=== PATIENT | female | born 1945 | race Caucasian/White ===

== ENCOUNTER → 2016-07-28 | Outpatient (CLI) | payer BC ==
[~2016-07-28] MED LIST: ALBU1AER9 INH; ATOR-22 PO; CALCTAB5 PO; CHOL4POW6 PO; FLUT230A INH; HYCUDL5 PO; LACT12LO3 EX; MOME50SP5; MULT-506 PO; PRT/20 PO; TRAM-10 PO; ZOLP12.5 PO
[2016-07-28 10:04] LABS: BASO % 0.6 %; BASO ABS # 0.04 K/uL (0-0.2); COMPLETE YES; EOS % 2.6 %; HEMATOCRIT 41.5 % (37-47); IG% 0.3 %; LYMPH % 40.6 %; LYMPH ABS # 2.79 K/uL (1.2-3.4); MEAN CELL VOLUME 87.9 fL (80-100); MEAN CORPUSCULAR HEMOGLOBIN 28.6 pg (25-34); MEAN CORPUSCULAR HGB CONC 32.5 g/dl (32-36); NEUT % 45.9 %; PLATELET COUNT 228 K/uL (130-400); RED BLOOD COUNT 4.72 M/uL (4.2-5.4); WHITE BLOOD COUNT 6.88 K/uL (4.8-10.8)
[2016-07-28 10:36] LABS: ALT/SGPT 47 U/L (12-78); AST/SGOT 25 U/L (15-37); BLOOD UREA NITROGEN 12 mg/dl (7-18); BUN/CREATININE RATIO 17.4 (10-20); CALCIUM 8.7 mg/dl (8.5-10.1); CARBON DIOXIDE 31 mmol/L (21-32); CHLORIDE 109 mmol/L (98-107); CREATININE 0.67 mg/dl (0.60-1.20); GLUCOSE 90 mg/dl (70-99); SODIUM 146 mmol/L (136-145)
[2016-07-28 10:47] LABS: CHOLESTEROL 156 mg/dl (0-200); CHOLESTEROL/HDL RATIO 2.1; HDL CHOLESTEROL 74 mg/dl; LDL CHOLESTEROL CALCULATED 67 mg/dl; TRIGLYCERIDES 76 mg/dl (0-150); VERY LOW DENSITY LIPOPROT CALC 15 mg/dl
[2016-07-28 10:52] LABS: ESTIMATED AVERAGE GLUCOSE 117 mg/dl; HA1C FLAG Normal (Normal)
[2016-07-28 12:39] LABS: URINE APPEARANCE CLEAR (CLEAR); URINE BILIRUBIN NEG (NEG); URINE COLOR YELLOW; URINE EPITHELIAL CELL AUTO >30 /lpf (0-5); URINE NITRITE NEG (NEG); UROBILINOGEN NEG (NEG)
[2016-07-28 12:46] LABS: MANUAL MICROSCOPIC REQUIRED? NO; REVIEW REQ? NO
== END | disposition home or self-care (01) ==
LOC: C.LAB 09:19
PROVIDERS: ATTEND Internal Medicine
DX: E78.00 Pure hypercholesterolemia, unspecified (principal)

== ENCOUNTER → 2017-01-19 | Outpatient (CLI) | payer BC ==
--- NOTE | 2017-01-19 15:09 | MAMMOGRAPHY REPORT ---
BILATERAL DIGITAL SCREENING MAMMOGRAM WITH CAD: 01/19/2017 CLINICAL HISTORY: Routine screening. Patient has no complaints. TECHNIQUE: Bilateral CC and MLO views were obtained. Additional images were performed with nipples i n profile. Current study was also evaluated with a Computer Aided Detection (CAD) system. COMPARISON: Comparison is made to exams dated: 01/14/2016 mammogram, 01/10/2015 mammogram, 4 mammogram, 01/05/2013 mammogram, 01/05/2012 mammogram, and 12/30/2010 mammogram - [facility]. BREAST COMPOSITION: There are scattered areas of fibroglandular density in both breasts. FINDINGS: The parenchymal pattern is unchanged. No developing mass, architectural distortion or clus ter of suspicious microcalcifications is seen in either breast. IMPRESSION: ACR BI-RADS CATEGORY 2: BENIGN There is no mammographic evidence of malignancy. A 1 year screening mammogram is recommended. The pa tient will receive written notification of the results. Approximately 10% of breast cancers are not detected with mammography. A negative mammographic report should not delay biopsy if a clinically suggestive mass is present. Francie Silva M.D. ay/:01/19/2017 11:47:48 Tie In Hand: Sepideh WELLS(Mehreen)(Kristian)(BD), letter sent: Normal 1/2 BI-RADS Code: ACR BI-RADS Category 2: Benign
== END | disposition home or self-care (01) ==
LOC: C.MAMM 10:51
PROVIDERS: ATTEND Internal Medicine
DX: Z12.31 Encounter for screening mammogram for malignant neoplasm of breast (principal)

== ENCOUNTER → 2017-01-28 | Outpatient (CLI) | payer BC ==
[2017-01-28 10:07] LABS: BASO ABS # 0.06 K/uL (0-0.2); COMPLETE YES; EOS % 2.6 %; HEMATOCRIT 42.2 % (37-47); IG% 0.3 %; LYMPH % 37.5 %; LYMPH ABS # 2.33 K/uL (1.2-3.4); MEAN CELL VOLUME 87.4 fL (80-100); MEAN CORPUSCULAR HEMOGLOBIN 28.4 pg (25-34); MEAN CORPUSCULAR HGB CONC 32.5 g/dl (32-36); MEAN PLATELET VOLUME 11.4 fL (7.4-10.4); MONO % 9.2 %; NEUT % 49.4 %; PLATELET COUNT 220 K/uL (130-400); RED BLOOD COUNT 4.83 M/uL (4.2-5.4); WHITE BLOOD COUNT 6.21 K/uL (4.8-10.8)
[2017-01-28 10:21] LABS: ESTIMATED AVERAGE GLUCOSE 114 mg/dl; HA1C FLAG Normal (Normal)
[2017-01-28 10:43] LABS: CHOLESTEROL/HDL RATIO 2.1
== END | disposition home or self-care (01) ==
LOC: C.LAB 09:24
PROVIDERS: ATTEND Internal Medicine
DX: G47.33 Obstructive sleep apnea (adult) (pediatric) (principal)

== ENCOUNTER → 2017-03-24 | Outpatient (CLI) | payer OTHER | END | disposition home or self-care (01) | LOC: C.LABSPEC 17:50 | PROVIDERS: ATTEND Obstetrics & Gynecology | DX: N89.8 Other specified noninflammatory disorders of vagina (principal) ==

== ENCOUNTER → 2017-07-12 | Day surgery (SDC) | payer BC, OTHER ==
[2017-06-30 10:04] VITALS: Ht 168.9 cm; Wt 70.5 kg
[~2017-07-12] VITALS: Ht 168.9 cm; Wt 70.5 kg
[~2017-07-12] MED LIST changes: +ALBU18002 INH; -ALBU1AER9 INH; +BUTA30CA12 PO; +CALC-393 PO; -CALCTAB5 PO; -CHOL4POW6 PO; +CHOLPOW PO; -LACT12LO3 EX; +LCHC12280; +LIDOCAINE HCL 2% 2 ML VIAL (20MG/ML) ONE; +MIDAZOLAM HCL 1 MG/ML 2ML VIAL ONE; -MOME50SP5; +MOME6000 NAE; +NYSS/; +ONDANSETRON INJ 2 MG/ML 2 ML VIAL ONE; +PANT1TAB3 PO; +PROPOFOL IV EMULSION 10 MG/ML 20 ML VIAL ONE; -PRT/20 PO; +SODIUM CHLORIDE 0.9% 500ML 500 ML IV ONE; -TRAM-10 PO
--- NOTE | 2017-07-12 14:03 | Endo History and Physical ---
History & Physical Date of Service: July 12, 2017. Chief Complaint: Screening, Hx of polyps Referring Physician: Dr. Bonner History of Present Illness 71 yo CF who presents for colonoscopy secondary to history of colon polyps. Past Medical History Diabetes, Reflux, High Cholesterol, Sleep Apnea, Hypertension Past Surgical History Hx Cardiac Surgery: No Hx Internal Defibrillator: No Hx Pacemaker: No Hx Abdominal Surgery: Yes (HYSTERECTOMY, LAURA) Hx of Implantable Prosthesis: No Hx Post-Op Nausea and Vomiting: No Hx Cancer Surgery: Yes (MOHS SURGERY, BIOSPIES FOR SKIN CA) Hx Thoracic Surgery: No Hx Orthopedic: Yes (R RCR) Hx Urinary Tract Surgery: No Family History Polyp Social History Smoking Status: Former Smoker Hx Substance Use: No Hx Alcohol Use: Yes (SOCIALLY) Allergies Coded Allergies: Meloxicam (Verified Allergy, Unknown, GI BLEED, 07/12/17) Current Medications Reported Home Medications Medications Dose Route/Sig Max Daily Dose Days Date Category Proair Respiclick (Albuterol Sulfate) 108 Mcg/Act Aer 2 Puffs INH Q4 PRN 06/30/17 Reported Nystatin Suspension (Nystatin) 1 Ml Susp DIRECTED PRN 06/30/17 Reported Mometasone Furoate (Mometasone Furoate (Nasal)) 50 Mcg/Act Spr 2 Sprays GAIL DAILY 06/30/17 Reported Cholestyramine (Cholestyramine (Bulk)) 1 Pow Pow 1 Pkt PO DAILY 06/30/17 Reported Calcium (Calcium Carbonate) 600 Mg Tab 1 Tab PO BID 06/30/17 Reported Fiorinal/Codeine #3 (Rlaqmrgako-Tuusxhh-Vzzgdrmc W/) 1 Cap Cap 1 Cap PO DAILY PRN 06/30/17 Reported Ammonium Lactate Cream 12% (Lactic Acid) 280 Gm Cr DIRECTED 06/30/17 Reported Advair Hfa 230/21 Mcg (Fluticasone-Salmeterol 230/21 Mcg) 1 Aer Aer 2 Puffs INH BID 06/30/17 Reported Protonix (Pantoprazole) 40 Mg Tab 1 Tab PO DAILY 30 06/30/17 Reported Hydromet 5-1.5 mg/5Ml (Hydrocodone Bit/Homatropine Methylb) 5 Ml/Cup Syrp PO Q6 PRN 05/16/13 Reported Multivitamin (Multivitamins) Tab 1 Tab PO DAILY 01/30/13 Reported Lipitor (Atorvastatin Calcium) 20 Mg Tab 20 Mg PO HS 01/30/13 Reported Ambien Cr (Zolpidem Tartrate) 12.5 Mg Tabcr 12.5 Mg PO HS 01/30/13 Reported Vital Signs Weight (Kilograms): 70.45 Height (Feet): 5 Height (Inches): 6.5 Physical Exam General Appearance: WD/WN, no apparent distress Respiratory/Chest: Auscultation: breath sounds normal Cardiovascular: Heart Auscultation: RRR Abdomen: Bowel Sounds: normal Inspection & Palpation: soft, non-distended, no tenderness, guarding & rebound Assessment and Plan Assessment: 71 yo CF who presents for colonoscopy secondary to history of colon polyps. Plan: Proceed with colonoscopy.
--- NOTE | 2017-07-12 15:22 | Discharge Instructions ---
Endoscopy Patient Instructions Date / Procedure(s) Performed July 12, 2017. Colonoscopy Allergy Information Coded Allergies: Meloxicam (Verified Allergy, Unknown, GI BLEED, 07/12/17) Discharge Date / Findings July 12, 2017. Colon polyps Internal hemorrhoids Medication Instructions OK to resume all medications today as prescribed Reported Home Medications Medications Dose Route/Sig Max Daily Dose Days Date Category Proair Respiclick (Albuterol Sulfate) 108 Mcg/Act Aer 2 Puffs INH Q4 PRN 06/30/17 Reported Nystatin Suspension (Nystatin) 1 Ml Susp DIRECTED PRN 06/30/17 Reported Mometasone Furoate (Mometasone Furoate (Nasal)) 50 Mcg/Act Spr 2 Sprays GAIL DAILY 06/30/17 Reported Cholestyramine (Cholestyramine (Bulk)) 1 Pow Pow 1 Pkt PO DAILY 06/30/17 Reported Calcium (Calcium Carbonate) 600 Mg Tab 1 Tab PO BID 06/30/17 Reported Fiorinal/Codeine #3 (Tsqezxkvkv-Drwknux-Vvfvlspv W/) 1 Cap Cap 1 Cap PO DAILY PRN 06/30/17 Reported Ammonium Lactate Cream 12% (Lactic Acid) 280 Gm Cr DIRECTED 06/30/17 Reported Advair Hfa 230/21 Mcg (Fluticasone-Salmeterol 230/21 Mcg) 1 Aer Aer 2 Puffs INH BID 06/30/17 Reported Protonix (Pantoprazole) 40 Mg Tab 1 Tab PO DAILY 30 06/30/17 Reported Hydromet 5-1.5 mg/5Ml (Hydrocodone Bit/Homatropine Methylb) 5 Ml/Cup Syrp PO Q6 PRN 05/16/13 Reported Multivitamin (Multivitamins) Tab 1 Tab PO DAILY 01/30/13 Reported Lipitor (Atorvastatin Calcium) 20 Mg Tab 20 Mg PO HS 01/30/13 Reported Ambien Cr (Zolpidem Tartrate) 12.5 Mg Tabcr 12.5 Mg PO HS 01/30/13 Reported Provider Instructions Activity Restrictions - No exercising or heavy lifting for 24 hours. - Do not drink alcohol the day of the procedure. - Do not drive a car or operate machinery until the day after the procedure. - Do not make any important decisions or sign important papers in 24 hours after the procedure. Following Day: - Return to full activity which may include returning to work/school. Diet Start your diet with liquids and light foods (jello, soup, juice, toast). Then eat your usual diet if not nauseated. Treatment For Common After Affects For mild abdominal pain, bloating, or excessive gas: - Rest - Eat lightly - Lie on right side Follow-Up Information Follow-up with Dr. Bonner as scheduled Anesthesia Information What You Should Know You have had a procedure that required some medicine to reduce anxiety and discomfort. This treatment is called moderate sedation. After receiving the treatment, you may be sleepy, but you will be able to breathe on your own. The effects of the treatment may last for several hours. Follow these instructions along with Activity/Diet recommendations noted above: * Do NOT do anything where dizziness or clumsiness would be dangerous. * Rest quietly at home today, then you can be up and about tomorrow. * Have a responsible person stay with you the rest of today. * You may have had an I.V. today. If so, you may take the dressing off later today. Recommendations Call your doctor if: * Trouble breathing * Continuous vomiting for more than 24 hours * Temperature above 101 degrees * Severe abdominal pain or bloating * Pain not relieved by pain medicine ordered * There is increased drainage or redness from any incision * A large amount of rectal bleeding greater than 2-3 tablespoons. (If you had a polyp/s removed or have hemorrhoids, a small amount of blood - from the rectum is to be expected.) * You have any unanswered questions or concerns. IN THE EVENT OF A SERIOUS EMERGENCY, GO TO THE NEAREST EMERGENCY ROOM Your discharge instructions were prepared by provider Kurt Alonso. Patient Instructions Signature Page Emily Kenny Patient (or Guardian) Signature/Date: I have read and understand the instructions given to me by my caregivers. Caregiver/RN/Doctor Signature/Date: The above-named patient and/or guardian has received patient instructions on this date. + Original Patient Signature Page (only) stays with chart. Please make copy for patient.
--- NOTE | 2017-07-12 15:25 | GI REPORT ---
Patient Name: Emily Kenny Procedure Date: 07/12/2017 2:03 PM Date of : 1945 Admit Type: Outpatient Age: 71 Gender: Female Attending MD: Kurt Alonso DO Procedure: Colonoscopy Providers: Kurt Alonso DO Referring MD: Jacob Bonner Indications: High risk colon cancer surveillance: Personal history of colonic polyps Medicines: Monitored Anesthesia Care Complications: No immediate complications. Estimated Blood Loss: Estimated blood loss: none. Procedure: Pre-Anesthesia Assessment: - Prior to the procedure, a History and Physical was performed, and patient medications and allergies were reviewed. The patient's tolerance of previous anesthesia was also reviewed. The risks and benefits of the procedure and the sedation options and risks were discussed with the patient. All questions were answered, and informed consent was obtained. Prior Anticoagulants: The patient has taken no previous anticoagulant or antiplatelet agents. ASA Grade Assessment: III - A patient with severe systemic disease. After reviewing the risks and benefits, the patient was deemed in satisfactory condition to undergo the procedure. After I obtained informed consent, the scope was passed under direct vision. Throughout the procedure, the patient's blood pressure, pulse, and oxygen saturations were monitored continuously. The On-site loaner was introduced through the anus and advanced to the cecum, identified by appendiceal orifice and ileocecal valve. The colonoscopy was technically difficult and complex due to restricted mobility of the colon and significant looping. Successful completion of the procedure was aided by changing the patient to a supine position, using manual pressure and withdrawing the scope and replacing with the pediatric colonoscope. The patient tolerated the procedure fairly well. The quality of the bowel preparation was good. The ileocecal valve, appendiceal orifice, and rectum were photographed. Findings: The perianal and digital rectal examinations were normal. Two sessile polyps were found in the descending colon and ascending colon. The polyps were 4 to 5 mm in size. These polyps were removed with a cold snare. Resection and retrieval were complete. Non-bleeding internal hemorrhoids were found during retroflexion. The hemorrhoids were small. Impression: - Two 4 to 5 mm polyps in the descending colon and in the ascending colon, removed with a cold snare. Resected and retrieved. - Non-bleeding internal hemorrhoids. Recommendation: - Resume previous diet. - Continue present medications. - Repeat colonoscopy for surveillance based on pathology results. - Return to primary care physician as previously scheduled. Kurt Alonso, DO 07/12/2017 3:25:15 PM This report has been signed electronically. Note Initiated On: 07/12/2017 2:03 PM Number of Addenda: 0 I attest to the content of the Intraoperative Record and orders documented therein, exceptions below {[id number]}
--- NOTE | 2017-07-12 15:41 | Anesthesiology Progress Note ---
Anesthesia Post Op Note Date & Time July 12, 2017 at 15:40 Vital Signs Pain Intensity: 0 Vital Signs Past 12 Hours Date Time Temp Pulse Resp B/P (MAP) Pulse Ox O2 Delivery O2 Flow Rate FiO2 07/12/17 15:24 37.1 81 16 124/74 (91) 97 Room Air 07/12/17 14:06 37.1 89 18 162/101 (121) 94 Room Air Notes Mental Status: alert / awake / arousable, participated in evaluation Pt Amnestic to Procedure: Yes Nausea / Vomiting: adequately controlled Pain: adequately controlled Airway Patency, RR, SpO2: stable & adequate BP & HR: stable & adequate Hydration State: stable & adequate Anesthetic Complications: no major complications apparent
[2017-07-12 15:55] VITALS: BP 105/94; PULSE 73; O2SAT 100
== END | disposition home or self-care (01) ==
LOC: C.GI 13:10
PROVIDERS: ATTEND Internal Medicine
DX: Z12.11 Encounter for screening for malignant neoplasm of colon (principal); D12.4 Benign neoplasm of descending colon; D12.2 Benign neoplasm of ascending colon; K64.8 Other hemorrhoids; Z86.010 Personal history of colon polyps; E11.9 Type 2 diabetes mellitus without complications; K21.9 Gastro-esophageal reflux disease without esophagitis; J45.909 Unspecified asthma, uncomplicated; E78.00 Pure hypercholesterolemia, unspecified; G47.33 Obstructive sleep apnea (adult) (pediatric); I10 Essential (primary) hypertension; Z90.710 Acquired absence of both cervix and uterus; Z87.891 Personal history of nicotine dependence; Z88.8 Allergy status to other drugs, medicaments and biological substances; Z79.899 Other long term (current) drug therapy; Z85.828 Personal history of other malignant neoplasm of skin

== ENCOUNTER → 2017-09-15 | Outpatient (CLI) | payer OTHER ==
[~2017-09-15] MED LIST changes: -LIDOCAINE HCL 2% 2 ML VIAL (20MG/ML) ONE; -MIDAZOLAM HCL 1 MG/ML 2ML VIAL ONE; -ONDANSETRON INJ 2 MG/ML 2 ML VIAL ONE; -PROPOFOL IV EMULSION 10 MG/ML 20 ML VIAL ONE; -SODIUM CHLORIDE 0.9% 500ML 500 ML IV ONE
== END | disposition home or self-care (01) ==
LOC: C.PAPS 15:04
PROVIDERS: ATTEND Obstetrics & Gynecology
DX: Z12.4 Encounter for screening for malignant neoplasm of cervix (principal)

== ENCOUNTER 2020-07-15 14:12 | Observation (INO) ==
[2020-07-15] MEDS ORDERED: metroNIDAZOLE 500 MG/100 ML BAG IV STA (17:27)
[2020-07-15] MEDS ORDERED: cefTRIAXone SODIUM 1,000 MG/50 ML BAG IV STA (17:27)
[2020-07-15 18:05] LABS: Basophils # (auto) 0.02 K/uL (0-0.2); Basophils % (auto) 0.3 %; Eosinophils # (auto) 0.08 K/uL (0-0.5); Hematocrit (blood only) 39.4 % (37-47); Immature Granulocytes # (auto) 0.02 K/uL (0.00-0.02); Immature Granulocytes % (auto) 0.3 %; Lymphocytes # (auto) 2.11 K/uL (1.2-3.4); Lymphocytes % (auto) 27.7 %; Mean Corpuscular Hemoglobin 28.3 pg (25-34); Mean Corpuscular Volume 85.8 fL (80-100); Mean Platelet Volume 11.7 fL (7.4-10.4); Monocytes # (auto) 0.72 K/uL (0.11-0.59); Monocytes % (auto) 9.4 %; Neutrophils # (auto) 4.67 K/uL (1.4-6.5); Neutrophils % (auto) 61.3 %; Platelet Count 190 K/uL (130-400); RDW Coefficient of Variation 13.7 % (11.5-14.5); RDW Standard Deviation 42.7 fL (36.4-46.3); Red Blood Count 4.59 M/uL (4.2-5.4); White Blood Count 7.62 K/uL (4.8-10.8)
--- NOTE | 2020-07-15 18:34 | Surgery Consultation ---
Date of Consultation July 15, 2020 Assessment & Plan (1) Acute appendicitis: pt is a 74 year-old female who presents to Er with 6 weeks history RLQ pain, IMP; acute appendicitis Plan, I recommend to do laparoscopic appendectomy, possible open, D/W benefits, risks and alternatives of the surgery, the risk - infection, bleeding, abscess, injury other organs, bowel obstruction, GA, DVT, stroke, , pt and her daughter understood, they agree with the surgery, I answered all questions, p re-op antibiotic, Present on Admission?: Yes History of Present Illness History of Present Illness CC: RLQ pain HPI: Ms. Kenny is a 74 year old female with a medical history of asthma, elevated blood pressure, hypercholesterolemia, hyperglycemia, narcolepsy and obstructive sleep apnea, who presents today for ER follow up. I ( Jacquelin Rojas MD ) got ER attending call for consult acute appendicitis, I reviewed pt's H/P, labs, CT scan with pt, pt has been RLQ pain for 6 weeks, today, pt feels more RLQ pain with nausea and vomiting, but pt denies fever, no diarrhea, no bloody stool, 1. right lower quad pain- Evaluated in the ER on 05/29/20.She had a CT scan which resulted in a distended fluid filled appendix measuring 12 mm, 7 mm loraine appendiceal nodule with diagnostic considerations which include chronic appendicitis versus appendiceal neoplasm. Patient was instructed to follow up in our office for further evaluation of abnormal CT scan. Patient states that she did not know about her appendix. She states that since May she has not felt well and has been eating lightly including canned fruit. She has nausea when she eats. She has had some right upper and lower abdominal discomfort which she treats with dicyclomine. Last night and this morning she had right lower quadrant pain and took dicyclomine but pain persisted the the. No fever. Has nausea but no vomiting. She ate raisins at 5pm last evening but nothing since. She also has a HX of constipation but uses Cholestyramine since her gall bladder surgery. She notes persistent symptoms of constipation. Allergies, aimal dander, grass pollen, meloxicam, mold, No other acute symptoms and review of systems os otherwise negative. Review of System Review of Systems: A problem specific ROS was performed with pertinent positives as noted above; all other systems are negative. [facility] Medical History (Updated 07/15/20 @ 10:38 by DELROY Santana) History of colon polyps TIA (transient ischemic attack) Surgical History H/O Mohs micrographic surgery for skin cancer H/O repair of rotator cuff History of bunionectomy History of cataract surgery History of cholecystectomy History of colonoscopy History of esophagogastroduodenoscopy (EGD) History of hysterectomy, supracervical History of tubal ligation S/P excision of acoustic neuroma Family History Mother Breast cancer Father Prostate cancer Grandmother (Paternal) Family history of diabetes mellitus Social History Smoking Status: Never smoker Tobacco Type: Cigarettes Number of Years Since Quit: 57; Second Hand Exposure: Yes ( A CHILD); Hx Alcohol Use: Yes Alcohol type: wine Hx Substance Use: No Preferred Language: Kenyan Communication Ability: Effective Casket Liner Required: No Beliefs That Will Affect Care: None marital status: Current Living Situation: Significant Other Feels Safe at Home: Yes Assistive Devices: Glasses and Hearing Aid - Bilateral Allergies Allergy/AdvReac Type Severity Reaction Status Date / Time animal dander Allergy Mild Unknown Verified 07/15/20 10:00 grass pollen Allergy Mild Unknown Verified 07/15/20 10:00 meloxicam Allergy Unknown GI BLEED Verified 07/15/20 10:00 mold Allergy Unknown Unknown Verified 07/15/20 10:00 Home Medications Medication Instructions Recorded Confirmed Type albuterol sulfate 90 mcg/actuation 2 puffs INH Q4H PRN gm 08/13/18 07/15/20 History aerosol inhaler biotin 5 mg capsule 5 mg PO QAM 08/13/18 07/15/20 History calcium carbonate 600 mg calcium 600 mg PO BID tab 08/13/18 07/15/20 History (1,500 mg) tablet inhalational spacing device #1 ea 08/13/18 02/26/20 History multivitamin 1 tab PO QAM 08/13/18 07/15/20 History oxygen-air delivery systems #1 08/13/18 07/15/20 History fluticasone propionate 230 1 puff INH Q12H #12 gm 02/26/20 07/15/20 Rx mcg-salmeterol 21 mcg/actuation HFA inhaler mometasone 50 mcg/actuation nasal 2 spray INTNAS DAILY #3 btl 02/26/20 07/15/20 Rx spray phjymah-caswpfdgas-KQI-caffeine 30 1 cap PO DAILY PRN #90 cap 04/04/20 07/15/20 Rx mg-50 mg-325 mg-40 mg capsule hydrocodone-homatropine 5 mg-1.5 5 ml PO Q4H PRN #473 ml 04/04/20 07/15/20 Rx mg/5 mL oral syrup ammonium lactate 1 applic TOPICAL DIRECTED PRN 05/29/20 07/15/20 History atorvastatin 20 mg PO HS 05/29/20 07/15/20 History dicyclomine 20 mg PO TID PRN #20 tab 05/29/20 07/15/20 Rx orphenadrine citrate 100 mg PO BID PRN 05/29/20 07/15/20 History pantoprazole 40 mg PO BID 05/29/20 07/15/20 History cholestyramine (with sugar) 4 gram 2 g PO DAILY #90 ea 06/19/20 07/15/20 Rx powder for susp in a packet zolpidem 12.5 mg tablet,extended 12.5 mg PO HS PRN #90 tab 06/25/20 07/15/20 Rx release,multiphase triamcinolone acetonide 1 applic TOPICAL UD 07/15/20 07/15/20 History Patient History Medical History (Updated 07/15/20 @ 18:41 by Jacquelin Winslow MD) History of colon polyps TIA (transient ischemic attack) 1975 Surgical History H/O Mohs micrographic surgery for skin cancer H/O repair of rotator cuff History of bunionectomy History of cataract surgery left History of cholecystectomy History of colonoscopy History of esophagogastroduodenoscopy (EGD) History of hysterectomy, supracervical History of tubal ligation S/P excision of acoustic neuroma Family History Mother Breast cancer with metaplasia. Father Prostate cancer Grandmother (Paternal) Family history of diabetes mellitus Social History Smoking Status: Never smoker Tobacco Type: Cigarettes Number of Years Since Quit: 57; Second Hand Exposure: Yes ( A CHILD); Hx Alcohol Use: Yes Alcohol type: wine Hx Substance Use: No Preferred Language: Kenyan Communication Ability: Effective Casket Liner Required: No Beliefs That Will Affect Care: None marital status: Current Living Situation: Significant Other Feels Safe at Home: Yes Assistive Devices: Glasses and Hearing Aid - Bilateral Physical Exam Constitutional: WD/WN, vitals as above well developed and well nourished Eyes: PERRL, conjunctivae normal, anicteric sclerae ENMT: external ear and nose normal, oropharynx normal Neck: trachea midline, no thyromegaly Respiratory: normal respiratory effort, lungs clear to auscultation normal respiratory effort Cardiovascular: RRR, no murmur, no edema Rate/Rhythm: regular rate and regular rhythm Gastrointestinal (Abdomen): Percussion/Palpation: + abdomen tender and abdomen soft tenderness at RLQ, no rebound pain, no rigid, no distend, BS + Musculoskeletal: no cyanosis or clubbing, extremities motor strength 5/5 Neurologic: awake Psychiatric: Orientation: alert and oriented x 3 Results & Data ([facility]) Vital Signs (Past 12 Hours) Vital Signs Temp Pulse Pulse Resp BP BP Pulse Ox 07/15/20 17:39 75 20 160/100 H 99 07/15/20 14:16 36.3 C L 78 20 155/89 H 99 Laboratory Results Abnormal lab results 07/15/20 Range/Units 17:47 MPV 11.7 H (7.4-10.4) fL [place] # (Auto) 0.72 H (0.11-0.59) K/uL Diagnostic Findings CT abd pelvis IV con only CLINICAL HISTORY: R10.31 - Right lower quadrant pain COMPARISON STUDY: 05/29/2020 TECHNIQUE: Patient was scanned in a dynamic helical fashion during intravenous administration of 87 cc of Optiray 320 A dose lowering technique was utilized adhering to the principles of ALARA. CT DOSE: 376.93 mGycm FINDINGS: Lower chest: There is partial visualization of a 9 mm left lower lobe pulmonary nodule. This remain similar to September 2015. Liver: The contrast-enhanced liver is normal in size, contour, and attenuation. There is no intrahepatic biliary ductal dilatation. The hepatic veins and portal veins are patent. Gallbladder: Surgically absent Spleen: Normal in size and attenuation. Pancreas: Unremarkable. Adrenal glands: Unremarkable. Kidneys: There is a 6 mm left renal cyst. Each kidney demonstrates an extrarenal pelvis. No solid renal masses are visualized. Bowel: There are no transition zones indicate bowel obstruction. There is no evidence of acute diverticulitis. There is a dilated appendix with interval development of infiltration of the periappendiceal fat. The findings are indicative of acute appendicitis. Surgical consultation is recommended. There are a few tiny periappendiceal lymph nodes. Peritoneum: There is no intraperitoneal free air or abdominal ascites. Vasculature: The abdominal aorta is normal in course and caliber. Adenopathy: None. Pelvic viscera: There are a few small ovarian cysts/follicles. Skeletal structures: There is a presumed left iliac bone island. The sacral Tarlov cyst IMPRESSION: 1. Dilated appendix with appendiceal wall enhancement and infiltration of the periappendiceal fat. Findings are indicative of acute appendicitis and surgical consultation is recommended.
[2020-07-15] MEDS ORDERED: cefOXitin 2,000 MG/60 ML BAG IV STA (18:45)
--- NOTE | 2020-07-15 18:45 | History & Physical Bridge Note ---
Date of Service July 15, 2020 History & Physical Bridge Note I have examined the patient, reviewed the History & Physical and in the interval since the performance of the History & Physical I have noted the following changes of clinical significance: no changes noted
[2020-07-15 18:58] LABS: Albumin Globulin Ratio 1.1 (0.9-2); Albumin Level 3.5 gm/dl (3.4-5.0); BUN Creatinine Ratio 15.5 (10-20); Bilirubin,Total 1.5 mg/dl (0.2-1); Calcium 8.9 mg/dl (8.5-10.1); Creatinine Clr Calc Pharmacy 83.5 ml/min; Est GFR (African American) 107.3 ml/min; Est GFR (Non-African American) 92.6 ml/min; Globulin 3.1 gm/dl (2.5-4.0); Total Protein 6.6 gm/dl (6.4-8.2)
[2020-07-15 19:09] LABS: Potassium 3.6 mmol/L (3.5-5.1)
--- NOTE | 2020-07-15 19:34 | Anesthesiology Consultation ---
Date of Service July 15, 2020 Assessment & Plan Chart Review Chart Review: Acceptable Risk for Surgery Consults Requested none ASA [id number] Proposed Anesthesia Anesthesia Type: General (RSI) Risk / Benefits Reviewed With: PT / POA / Parent / Guardian, Accepts Plan and Informed Consent Obtained History Surgery Operation Date: 07/15/20 22:30 Proposed Procedures p Laparoscopic Appendectomy - Jacquelin Winslow MD Height/Weight Height: 5 ft 6 in Weight: 64.4 kg Allergies Allergy/AdvReac Type Severity Reaction Status Date / Time animal dander Allergy Mild Unknown Verified 07/15/20 10:00 grass pollen Allergy Mild Unknown Verified 07/15/20 10:00 meloxicam Allergy Unknown GI BLEED Verified 07/15/20 10:00 mold Allergy Unknown Unknown Verified 07/15/20 10:00 Medications Home Medications Medication Instructions Recorded Confirmed Last Taken albuterol sulfate 90 mcg/actuation 2 puffs INH Q4H PRN gm 08/13/18 07/15/20 12/12/18 aerosol inhaler biotin 5 mg capsule 5 mg PO QAM 08/13/18 07/15/20 05/28/20 calcium carbonate 600 mg calcium 600 mg PO BID tab 08/13/18 07/15/20 05/28/20 08:00 (1,500 mg) tablet inhalational spacing device #1 ea 08/13/18 02/26/20 Unknown multivitamin 1 tab PO QAM 08/13/18 07/15/20 05/28/20 oxygen-air delivery systems #1 08/13/18 07/15/20 Unknown fluticasone propionate 230 1 puff INH Q12H #12 gm 02/26/20 07/15/20 05/28/20 08:00 mcg-salmeterol 21 mcg/actuation HFA inhaler mometasone 50 mcg/actuation nasal 2 spray INTNAS DAILY #3 btl 02/26/20 07/15/20 05/28/20 spray [id number]-qjtdcwbbcp-UDW-caffeine 30 1 cap PO DAILY PRN #90 cap 04/04/20 07/15/20 Unknown mg-50 mg-325 mg-40 mg capsule hydrocodone-homatropine 5 mg-1.5 5 ml PO Q4H PRN #473 ml 04/04/20 07/15/20 Unkn own mg/5 mL oral syrup ammonium lactate 1 applic TOPICAL DIRECTED PRN 05/29/20 07/15/20 Unknown atorvastatin 20 mg PO HS 05/29/20 07/15/20 05/27/20 dicyclomine 20 mg PO TID PRN #20 tab 05/29/20 07/15/20 Unknown orphenadrine citrate 100 mg PO BID PRN 05/29/20 07/15/20 Unknown pantoprazole 40 mg PO BID 05/29/20 07/15/20 05/28/20 08:00 cholestyramine (with sugar) 4 gram 2 g PO DAILY #90 ea 06/19/20 07/15/20 Unknown powder for susp in a packet zolpidem 12.5 mg tablet,extended 12.5 mg PO HS PRN #90 tab 06/25/20 07/15/20 Unknown release,multiphase triamcinolone acetonide 1 applic TOPICAL UD 07/15/20 07/15/20 Unknown NPO Date Last Intake of Fluids: 07/15/20 Date Last Intake of Solids: 07/14/20 Time Last Intake of Solids: 17:00 Past Medical History Medical History Acoustic neuroma Allergic rhinitis due to pollen Anxiety Elevated BP without diagnosis of hypertension Extrinsic asthma Gastroesophageal reflux disease Hallux rigidus of right foot Hearing deficit BL OCHOA History of colon polyps Hypercholesterolemia Hyperglycemia Medial meniscus tear Migraine headache Narcolepsy Obstructive sleep apnea syndrome in adult Osteoarthritis TIA (transient ischemic attack) 1976 Tubular adenoma of colon cpap consistently 7 cm h2 o Exercise / Class Metabolic Activity II 4-5 Yardwork/Stairs/Walk up hill Past Family History Family History Mother Breast cancer with metaplasia. Father Prostate cancer Grandmother (Paternal) Family history of diabetes mellitus Past Surgical History Surgical History H/O Mohs micrographic surgery for skin cancer H/O repair of rotator cuff History of bunionectomy History of cataract surgery left History of cholecystectomy History of colonoscopy History of esophagogastroduodenoscopy (EGD) History of hysterectomy, supracervical History of tubal ligation S/P excision of acoustic neuroma Past Anesthesia History No Hx of Anesthesia Complications and No Family Hx of Anesthesia Complications History of PONV No Hx of PONV and No Hx of Motion Sickness Social History Smoking Status: Never smoker tobacco type: cigarettes Hx Alcohol Use: Yes Alcohol type: wine alcohol intake frequency: 0-2 drinks per day Hx Substance Use: No substance use type: does not use Physical Exam Vital Signs Last Vital Signs Temp 36.3 C L 07/15/20 14:16 Pulse 68 07/15/20 19:18 Resp 20 07/15/20 19:18 BP 147/87 H 07/15/20 19:18 Pulse Ox 98 07/15/20 19:18 ENMT Mouth: + dentures (Partial, only 3-4 teeth remain); no TMJ abnormality Thyromental Distance: > or= 3.5 Finger Breadths Mallampati Class: II Neck normal visual inspection and trachea midline; neck extension not limited Respiratory normal respiratory effort Auscultation: lungs clear to auscultation bilaterally Cardiovascular Rate/Rhythm: regular rate and regular rhythm Heart Sounds: no murmur Musculoskeletal Spine: normal cervical ROM Extremities: full ROM of extremities Neurologic moves all extremities Psychiatric Orientation: alert and oriented x 3 Testing Laboratory Results 07/15/20 17:47 07/15/20 17:47 07/15/20 COVID neg Electrocardiogram Date: 07/15/20 Findings: + NSR @ (72) age indeterm septal infarct, not present in 2013 Chest X-Ray Date: 01/21/19 Findings: + NAD
--- NOTE | 2020-07-15 19:39 | Emergency Department Note ---
History of Present Illness General Chief Complaint: Abdominal Pain Stated Complaint: APPENDICITIS, REFERRED BY CT Time Seen by Provider: 07/15/20 17:22 History of Present Illness Provider Complaint: abdominal pain Onset (ago): week(s) (6) Location: RLQ Severity: moderate Maximum Pain Intensity: 5 Current Pain Intensity: 5 Quality: + aching Relieved By: + nothing Exacerbated By: + nothing Context: no foreign travel, no possible food poisoning, no recent antibiotic use and no recent surgery/procedure Associated Symptoms: no nausea, no vomiting, no diarrhea, no fever, no chills, no constipation, no dysuria, no hematemesis, no hematochezia, no melena, no hematuria, no syncope and no headache Home Medications Medication Instructions Recorded Confirmed Type albuterol sulfate 90 mcg/actuation 2 puffs INH Q4H PRN gm 08/13/18 07/15/20 History aerosol inhaler biotin 5 mg capsule 5 mg PO QAM 08/13/18 07/15/20 History calcium carbonate 600 mg calcium 600 mg PO BID tab 08/13/18 07/15/20 History (1,500 mg) tablet inhalational spacing device #1 ea 08/13/18 02/26/20 History multivitamin 1 tab PO QAM 08/13/18 07/15/20 History oxygen-air delivery systems #1 08/13/18 07/15/20 History fluticasone propionate 230 1 puff INH Q12H #12 gm 02/26/20 07/15/20 Rx mcg-salmeterol 21 mcg/actuation HFA inhaler mometasone 50 mcg/actuation nasal 2 spray INTNAS DAILY #3 btl 02/26/20 07/15/20 Rx spray [id number]-KCP-caffeine 30 1 cap PO DAILY PRN #90 cap 04/04/20 07/15/20 Rx mg-50 mg-325 mg-40 mg capsule hydrocodone-homatropine 5 mg-1.5 5 ml PO Q4H PRN #473 ml 04/04/20 07/15/20 Rx mg/5 mL oral syrup ammonium lactate 1 applic TOPICAL DIRECTED PRN 05/29/20 07/15/20 History atorvastatin 20 mg PO HS 05/29/20 07/15/20 History dicyclomine 20 mg PO TID PRN #20 tab 05/29/20 07/15/20 Rx orphenadrine citrate 100 mg PO BID PRN 05/29/20 07/15/20 History pantoprazole 40 mg PO BID 05/29/20 07/15/20 History cholestyramine (with sugar) 4 gram 2 g PO DAILY #90 ea 06/19/20 07/15/20 Rx powder for susp in a packet zolpidem 12.5 mg tablet,extended 12.5 mg PO HS PRN #90 tab 06/25/20 07/15/20 Rx release,multiphase triamcinolone acetonide 1 applic TOPICAL UD 07/15/20 07/15/20 History Allergies Allergy/AdvReac Type Severity Reaction Status Date / Time animal dander Allergy Mild Unknown Verified 07/15/20 10:00 grass pollen Allergy Mild Unknown Verified 07/15/20 10:00 meloxicam Allergy Unknown GI BLEED Verified 07/15/20 10:00 mold Allergy Unknown Unknown Verified 07/15/20 10:00 Past Med/Surg History Medical History Acoustic neuroma Allergic rhinitis due to pollen Anxiety Elevated BP without diagnosis of hypertension Extrinsic asthma Gastroesophageal reflux disease Hallux rigidus of right foot Hearing deficit BL OCHOA History of colon polyps Hypercholesterolemia Hyperglycemia Medial meniscus tear Migraine headache Narcolepsy Obstructive sleep apnea syndrome in adult Osteoarthritis TIA (transient ischemic attack) 1976 Tubular adenoma of colon Surgical History H/O Mohs micrographic surgery for skin cancer H/O repair of rotator cuff History of bunionectomy History of cataract surgery left History of cholecystectomy History of colonoscopy History of esophagogastroduodenoscopy (EGD) History of hysterectomy, supracervical History of tubal ligation S/P excision of acoustic neuroma Family History Mother Breast cancer with metaplasia. Father Prostate cancer Grandmother (Paternal) Family history of diabetes mellitus Social History Smoking Status: Never smoker Tobacco Type: Cigarettes Number of Years Since Quit: 57; Second Hand Exposure: Yes ( A CHILD); Hx Alcohol Use: Yes Alcohol type: wine Hx Substance Use: No Preferred Language: Bahamian Communication Ability: Effective Sifting Operator Required: No Beliefs That Will Affect Care: None marital status: Current Living Situation: Significant Other Feels Safe at Home: Yes Assistive Devices: Glasses and Hearing Aid - Bilateral Review of Systems A total of 6 systems reviewed and were otherwise negative Physical Exam Vital Signs: Vital Signs - 24 hr 07/15/20 14:16 07/15/20 17:39 07/15/20 19:18 Temperature 36.3 C L Temperature Source Temporal Artery Sc an Pulse Rate 78 Pulse Rate [Right Finger] 75 68 Respiratory Rate 20 20 20 Respiratory Depth Normal Blood Pressure 155/89 H Blood Pressure [Ri ght Arm] 160/100 H 147/87 H Blood Pressure Carolyn n 111 Blood Pressure Carolyn n [Right Arm] 120 107 Blood Pressure Pos ition [Right Arm] Lying Pulse Oximetry 99 99 98 Oxygen Delivery Me thod Room Air Room Air Room Air Sepsis Recent Feve r Within 48 Hours No Sepsis New/Unexpla ined Change in Men dat Status N/A Sepsis Action Take n by Nursing No Action Required Physical Exam: Physical Exam GENERAL: She is oriented to person, place, and time. She appears well-developed and well-nourished. She does not appear distressed. HENT: Exam performed. -Head: Normocephalic and atraumatic. -Right Ear: External ear normal. No mastoid tenderness. -Left Ear: External ear normal. No mastoid tenderness. -Mouth/Throat: The oropharynx is clear and moist. No trismus in the jaw. No dental abscesses or uvula swelling. No oropharyngeal exudate or tonsillar abscesses. EYES: Conjunctivae and EOM are normal. Pupils are equal, round, and reactive to light. Right eye exhibits no discharge. Left eye exhibits no discharge. No scleral icterus. NECK: Normal range of motion. Neck supple. No JVD present. No spinous process tenderness present. No carotid bruit present. No rigidity. No tracheal deviation and normal range of motion present. No Brudzinski's sign and no Kernig's sign noted. CV: Normal rate, regular rhythm, normal heart sounds and intact distal pulses. There is no peripheral edema. Palpable radial pulses bue. PULM/CHEST: Effort normal and breath sounds normal. No respiratory distress. No stridor. She has no wheezes. She has no rales. -Chest Wall: She exhibits no tenderness. ABD: Pain on palpation of the right lower quadrant. MUSC/SKEL: Normal range of motion. There is no peripheral edema, tenderness or deformity. LYMPH: No cervical adenopathy. NEURO: She is alert and oriented to person, place, and time. She has normal strength. No cranial nerve deficit or sensory deficit. Coordination and gait normal. GCS eye subscore is 4. GCS verbal subscore is 5. GCS motor subscore is 6. Cerebellar tests wnl. SKIN: Skin is warm and dry. She is not diaphoretic. PSYCH: She has a normal mood and affect. Behavior is normal. Judgment and thought content normal. Course Course 1721: The patient was evaluated in room C4. A complete history and physical exam was performed Cardiac monitoring: An order was placed for continuous cardiac monitoring. The monitor shows a rate of sinus 70 with sinus rhythm EMR reviewed. Patient had outpatient CT done today which showed acute appendici tis. Paged Dr. Winslow general surgery who states he will be down to evaluate the patient. COVID-19 swab ordered for the patient. Antibiotics ordered for acute appendicitis. Family was made aware the Dr. Winslow will come and evaluate the patient for the operating room. Administered Medications Discontinued Medications Ceftriaxone Sodium (Rocephin) 1,000 mg in 50 mls @ 100 mls/hr IV NOW STA Stop: 07/15/20 17:56 Last Infusion: 07/15/20 18:24 Dose: 0 mls/hr Documented by: [id number] Admin: 07/15/20 18:04 Dose: 100 mls/hr Documented by: [id number] Metronidazole (Flagyl) 500 mg in 100 mls @ 100 mls/hr IV NOW STA Stop: 07/15/20 18:26 Last Infusion: 07/15/20 19:17 Dose: 0 mls/hr Documented by: [id number] Admin: 07/15/20 18:25 Dose: 100 mls/hr Documented by: [id number] Cefoxitin Sodium (Mefoxin) 2,000 mg in 60 mls @ 100 mls/hr IV NOW STA Stop: 07/15/20 19:20 Last Admin: 07/15/20 19:18 Dose: 100 mls/hr Documented by: [id number] Medical Decision Making Laboratory Data Result diagrams: 07/15/20 17:47 07/15/20 17:47 Lab Results 07/15/20 07/15/20 07/15/20 Range/Units 17:47 17:47 17:47 WBC 7.62 (4.8-10.8) K/uL RBC 4.59 (4.2-5.4) M/uL Hgb 13.0 (12.0-16.0) g/dL Hct 39.4 (37-47) % MCV 85.8 (80-100) fL MCH 28.3 (25-34) pg MCHC 33.0 (32-36) g/dL RDW Std Deviation 42.7 (36.4-46.3) fL RDW Coeff of Dinesh 13.7 (11.5-14.5) % Plt Count 190 (130-400) K/uL MPV 11.7 H (7.4-10.4) fL Immature Gran % (Auto) 0.3 % Neut % (Auto) 61.3 % Lymph % (Auto) 27.7 % [place] % (Auto) 9.4 % Eos % (Auto) 1.0 % Baso % (Auto) 0.3 % Neut # (Auto) 4.67 (1.4-6.5) K/uL Lymph # (Auto) 2.11 (1.2-3.4) K/uL [place] # (Auto) 0.72 H (0.11-0.59) K/uL Eos # (Auto) 0.08 (0-0.5) K/uL Baso # (Auto) 0.02 (0-0.2) K/uL Immature Gran # (Auto) 0.02 (0.00-0.02) K/uL Sodium 143 (136-145) mmol/L Potassium 3.6 (3.5-5.1) mmol/L Chloride 108 H (98-107) mmol/L Carbon Dioxide 25 (21-32) mmol/L Anion Gap 10.0 (3-11) BUN 9 (7-18) mg/dl Creatinine 0.57 L (0.6-1.2) mg/dl Est Cr Clr Drug Dosing 83.5 ml/min Est GFR ( Amer) 107.3 ml/min Est GFR (Non-Af Amer) 92.6 ml/min BUN/Creatinine Ratio 15.5 (10-20) Glucose 94 (70-99) mg/dl Calcium 8.9 (8.5-10.1) mg/dl Total Bilirubin 1.5 H (0.2-1) mg/dl AST 19 (15-37) U/L ALT 27 (12-78) U/L Alkaline Phosphatase 84 (45-117) U/L Total Protein 6.6 (6.4-8.2) gm/dl Albumin 3.5 (3.4-5.0) gm/dl Globulin 3.1 (2.5-4.0) gm/dl Albumin/Globulin Ratio 1.1 (0.9-2) Lipase 65 L (73-393) U/L COVID-19 Eval Order Covid19 at [facility] SARS-CoV-2 (PCR) (Negative) 07/15/20 Range/Units 17:47 WBC (4.8-10.8) K/uL RBC (4.2-5.4) M/uL Hgb (12.0-16.0) g/dL Hct (37-47) % MCV (80-100) fL MCH (25-34) pg MCHC (32-36) g/dL RDW Std Deviation (36.4-46.3) fL RDW Coeff of Dinesh (11.5-14.5) % Plt Count (130-400) K/uL MPV (7.4-10.4) fL Immature Gran % (Auto) % Neut % (Auto) % Lymph % (Auto) % [place] % (Auto) % Eos % (Auto) % Baso % (Auto) % Neut # (Auto) (1.4-6.5) K/uL Lymph # (Auto) (1.2-3.4) K/uL [place] # (Auto) (0.11-0.59) K/uL Eos # (Auto) (0-0.5) K/uL Baso # (Auto) (0-0.2) K/uL Immature Gran # (Auto) (0.00-0.02) K/uL Sodium (136-145) mmol/L Potassium (3.5-5.1) mmol/L Chloride (98-107) mmol/L Carbon Dioxide (21-32) mmol/L Anion Gap (3-11) BUN (7-18) mg/dl Creatinine (0.6-1.2) mg/dl Est Cr Clr Drug Dosing ml/min Est GFR ( Amer) ml/min Est GFR (Non-Af Amer) ml/min BUN/Creatinine Ratio (10-20) Glucose (70-99) mg/dl Calcium (8.5-10.1) mg/dl Total Bilirubin (0.2-1) mg/dl AST (15-37) U/L ALT (12-78) U/L Alkaline Phosphatase (45-117) U/L Total Protein (6.4-8.2) gm/dl Albumin (3.4-5.0) gm/dl Globulin (2.5-4.0) gm/dl Albumin/Globulin Ratio (0.9-2) Lipase (73-393) U/L COVID-19 Eval Order SARS-CoV-2 (PCR) NEGATIVE (Negative) [facility] Narrative 1722: The patient was evaluated in room C4. A complete history and physical exam was performed Cardiac monitoring: An order was placed for continuous cardiac monitoring. The monitor shows a rate of sinus 70 with sinus rhythm EMR reviewed. Patient had outpatient CT done today which showed acute appendicitis. Paged Dr. Winslow general surgery who states he will be down to evaluate the patient. COVID-19 swab ordered for the patient. Antibiotics ordered for acute appendicitis. Family was made aware the Dr. Winslow will come and evaluate the patient for the operating room. Impression & Plan Acute appendicitis Discharge Plan Visit Data Chief Complaint: Abdominal Pain Stated Complaint: APPENDICITIS, REFERRED BY CT ED Provider: Pablito Munguia Discharge Problem: Acute appendicitis Patient Disposition: Admitted As Inpatient Forms Stand Alone Forms: [facility] Prescriptions Prescriptions: No Action mometasone 50 mcg/actuation spray,non-aerosol 2 spray INTNAS DAILY Qty: 3 RF: 3 jgmcask-yingjwtycv-ZFB-caff [id number] mg capsule 1 cap PO DAILY PRN (Reason: migraine headache) Qty: 90 RF: 0 hydrocodone-homatropine [Hydromet] 5-1.5 mg/5 mL syrup 5 ml PO Q4H PRN (Reason: cough) Qty: 473 RF: 0 cholestyramine (with sugar) 4 gram powder in packet 2 g PO DAILY Qty: 90 RF: 3 zolpidem 12.5 mg tablet,ext release multiphase 12.5 mg PO HS PRN (Reason: insomnia) Qty: 90 RF: 0 biotin 5 mg capsule 5 mg PO QAM RF: 0 calcium carbonate [Calcium 600] 600 mg calcium (1,500 mg) tablet 600 mg PO BID RF: 0 multivitamin tablet 1 tab PO QAM RF: 0 (DME) oxygen-air delivery systems device See Dose Instructions .ROUTE .MEDSUPPLY Qty: 1 RF: 0 albuterol sulfate [ProAir HFA] 90 mcg/actuation HFA aerosol inhaler 2 puffs INH Q4H PRN (Reason: Shortness Of Breath) RF: 0 (DME) Vortex Holding Chamber spacer See Dose Instructions .ROUTE .MEDSUPPLY Qty: 1 RF: 0 Advair HFA 230-21 mcg/actuation HFA aerosol inhaler 1 puff INH Q12H Qty: 12 RF: 5 ammonium lactate 12 % lotion 1 applic TOPICAL DIRECTED PRN (Reason: DRY SKIN IN WINTER) RF: 0 atorvastatin 20 mg tablet 20 mg PO HS RF: 0 pantoprazole 40 mg tablet,delayed release (DR/EC) 40 mg PO BID RF: 0 orphenadrine citrate 100 mg tablet extended release 100 mg PO BID PRN (Reason: HEADACHES) RF: 0 dicyclomine 20 mg tablet 20 mg PO TID PRN (Reason: abdominal pain) Qty: 20 RF: 0 triamcinolone acetonide 0.1 % cream 1 applic TOPICAL UD RF: 0 Referrals Referrals: Jacob Bonner MD [Primary Care Provider] - Discharge Problem: Acute appendicitis Qualifiers: Acute appendicitis type: unspecified acute appendicitis type Qualified Code(s): K35.80 - Unspecified acute appendicitis
[2020-07-15] MEDS ORDERED: MoRPHine SULFATE 4 MG/ML 1 ML CARP\\VIAL IV STA (19:55)
[2020-07-15] MEDS ORDERED: ONDANSETRON INJ 2 MG/ML 2 ML VIAL IV STA (19:55)
[2020-07-15] MEDS ORDERED: LIDOCAINE 1% LOCAL 20 ML VIAL ONE (20:35)
[2020-07-15] MEDS ORDERED: BUPIVACAINE 0.5 % 5 MG/1 ML MPF 30ML VIAL ONE (20:35)
[2020-07-15] MEDS ORDERED: ONDANSETRON INJ 2 MG/ML 2 ML VIAL IV PRN (20:43)
[2020-07-15] MEDS ORDERED: MoRPHine SULFATE 10 MG/ML CARP/VIAL IV PRN (20:43)
[2020-07-15] MEDS ORDERED: ATROPINE SULFATE 0.1 MG/ML 10ML SYR IV PRN (20:43)
[2020-07-15] MEDS ORDERED: MEPERIDINE HCL 25 MG/ML CARP/VIAL IV PRN (20:43)
[2020-07-15] MEDS ORDERED: ALBUTEROL 0.083% NEBU SOLN 3 ML VIAL INH PRN (20:43)
[2020-07-15] MEDS ORDERED: fentaNYL citrate 100 MCG/2 ML VIAL IV PRN (20:43)
[2020-07-15] MEDS ORDERED: ePHEDrine sulfate 50 MG/ML AMP IV PRN (20:43)
--- NOTE | 2020-07-15 21:29 | Post Operative Brief Note ---
Immediate Post Op Note v1 Date of Surgery July 15, 2020 Pre & Post Diagnosis Operation Date: 07/15/20 22:30 Pre-Op Diagnosis: acute Appendicitis Post-Op Diagnosis: acute Appendicitis I identified the patient and participated in the time-out.: Yes Procedure Operation Date: 07/15/20 22:30 Actual Procedures p Laparoscopic Appendectomy(Not Applicable) - Jacquelin Winslow MD Surgeon Jacquelin Winslow MD Addiction Psychiatrist operating room surgical technologist Estimated Blood Loss 10 Findings Consistent with Post-Op Diagnosis inflammation and enlarge appendix Fluids 1000ml Specimens appendix Anesthesia Type General Complications none Disposition Accompanied Patient To Recovery: Yes Disposition: Recovery Room Overlapping Procedure I was immediately available: during the entire case.
--- NOTE | 2020-07-15 22:08 | Anesthesiology Progress Note ---
Date of Service July 15, 2020 Anesthesia Post Procedure Vital Signs Vital Signs: Temp Pulse Pulse Pulse Resp BP BP 07/15/20 22:00 66 16 153/80 H 07/15/20 21:50 68 11 L 145/77 H 07/15/20 21:40 36.5 C 90 16 145/89 H 07/15/20 19:18 68 20 07/15/20 17:39 75 20 07/15/20 14:16 36.3 C L 78 20 155/89 H BP Pulse Ox 07/15/20 22:00 100 07/15/20 21:50 98 07/15/20 21:40 100 07/15/20 19:18 147/87 H 98 07/15/20 17:39 160/100 H 99 07/15/20 14:16 99 Pain Intensity Right Lower Abdomen: Pain Intensity: 0 Transfer of Care Handoff Completed per policy Notes Mental Status: alert / awake / arousable and participated in evaluation Patient Amnestic to Procedure: Yes Nausea / Vomiting: adequately controlled Pain: adequately controlled Airway Patency, RR, SpO2: stable & adequate BP & HR: stable & adequate Hydration State: stable & adequate Anesthetic Complications: no major complications apparent and Pt Satisfied with anesthetic care
[2020-07-15] MEDS ORDERED: BUTALBITAL/ASA/CAFFEINE/COD 50/325/40/30 MG CAP PO PRN (22:44)
[2020-07-15] MEDS ORDERED: HYDROcodone/HOMATROPINE SYRUP 5MG/1.5MG 5ML UDP PO PRN (22:44)
[2020-07-15] MEDS ORDERED: TRIAMCINOLONE ACET 0.1% CR 15 GM TUBE TOP PRN (22:44)
[2020-07-15] MEDS ORDERED: HYDROmorphone INJ 0.5 MG/0.5 ML SYR IV PRN (22:44)
[2020-07-15] MEDS ORDERED: DICYCLOMINE HCL 20 MG TAB PO PRN (22:44)
[2020-07-15] MEDS ORDERED: ORPHENADRINE CITRATE 100 MG TABCR PO PRN (22:44)
[2020-07-15] MEDS ORDERED: AMMONIUM LACTATE 12% TOP PRN (22:44)
[2020-07-15] MEDS ORDERED: PNEUMOCOCCAL POLYSACCHARIDES 25 MCG/0.5 ML VIAL/SYR IM ONE (22:59)
[2020-07-15] MEDS ORDERED: ALBUTEROL HFA 8 GM INHALER INH PRN (23:01)
--- NOTE | 2020-07-15 23:01 | Operative Report (OR) ---
DATE OF OPERATION: 07/15/2020 PREOPERATIVE DIAGNOSIS: Acute appendicitis. POSTOPERATIVE DIAGNOSIS: Acute appendicitis. OPERATION: Laparoscopic appendectomy. SURGEON: Jacquelin Winslow MD ANESTHESIA: General. ESTIMATED BLOOD LOSS: About 10 mL. FINDINGS: Acute appendicitis, inflammation, and enlarged appendix. COMPLICATIONS: None. INDICATIONS FOR THE PROCEDURE: This is a 74-year-old female who presented to ED with 6-week history of right lower quadrant pain. The patient had a CT scan diagnosis of acute appendicitis. I recommended to do the laparoscopic appendectomy, possible open. I did talk to the patient about the benefits, the risks, and alternate procedures. I indicated the risks may include, but not limited such as bleeding, infection, abscess, injury to other organs, bowel obstruction, incisional hernia, myocardial infarction, DVT, stroke, even . The patient understands. She signed informed consent and I answered all questions. DETAILS OF PROCEDURE: After we identified the patient and verified the procedure, we brought in the patient to the OR, put the patient in the supine position. The patient received SCD on bilateral legs to prevent DVT. Also, the patient received 2 g cefoxitin IV for prophylactic antibiotic. The patient received general anesthesia without difficulties. Abdomen was prepped and draped in routine sterile fashion. After timeout, I injected the local anesthesia by using 1% lidocaine mixed with 0.5% Marcaine just above the umbilicus. Then I made a small incision just above the umbilicus, opened fascia and opened peritoneum under direct vision, put a Raz trocar in, connected to CO2 to create pneumoperitoneum. Flow rate at 6 liters per minute. Pressure not more than 14 mmHg. Once we got a nice pneumoperitoneum, we put the camera in, looked around the abdomen. The appendix was enlarged and inflammation and no free fluid on the pelvic area. Once we confirmed the diagnosis of acute appendicitis, we put another two 5 mm trocars on the left lower quadrant area. Then we mobilized the appendix, used the harmonic to take down appendiceal, rechecked, no active bleeding. Then we used a 45 mm Endo-TONY stapler for transection on the base of the appendix, rechecked the staple line, intact. No active bleeding. Then we removed the appendix through the catch bag. Then we reinserted Raz trocar in, connected to CO2 to create pneumoperitoneum. Again looked around the abdomen, no active bleeding and intact staple line. Then we removed all trocar under direct vision. No active bleeding from the trocar sites. Pneumoperitoneum was released. Then I closed the umbilical incision, fascial layer by using 0 Vicryl [id number] x2, closed subcutaneous layer by using 2-0 Vicryl interruptedly, closed skin by using 4-0 Vicryl continuous running, closed another two 5 mm trocar sites the skin only by using 4-0 Vicryl. Then we put the dressing on. The patient tolerated the procedure well. All instrument, needle, sponge counts were correct x2. At the end of the case, the patient transferred to recovery room in stable condition. The specimen was sent to pathology. After the procedure, I did talk to the patient's significant, Aidan Mir, on the phone and informed him about the OR finding and the procedure we did, he understands. I attest to the content of the Intraoperative Record and any orders documented therein. Any exception s are noted below.
[2020-07-15] MEDS: LACTATED RINGER'S 1,000 ML IV SCH (23:55)
[2020-07-16 06:32] LABS: Basophils # (auto) 0.01 K/uL (0-0.2); Basophils % (auto) 0.2 %; Hematocrit (blood only) 40.3 % (37-47); Hemoglobin 13.8 g/dL (12.0-16.0); Lymphocytes # (auto) 0.71 K/uL (1.2-3.4); Mean Corpuscular Hemoglobin 29.5 pg (25-34); Mean Corpuscular Hgb Conc 34.2 g/dL (32-36); Mean Corpuscular Volume 86.1 fL (80-100); Mean Platelet Volume 11.8 fL (7.4-10.4); Monocytes % (auto) 1.8 %; Neutrophils # (auto) 4.66 K/uL (1.4-6.5); Platelet Count 182 K/uL (130-400); RDW Coefficient of Variation 13.7 % (11.5-14.5); RDW Standard Deviation 42.9 fL (36.4-46.3); Red Blood Count 4.68 M/uL (4.2-5.4); White Blood Count 5.48 K/uL (4.8-10.8)
[2020-07-16] MEDS ORDERED: FLUTICASONE PROPIONATE NA SPR 16 GM BTL SCH (09:00)
[2020-07-16] MEDS ORDERED: MULTIVITAMIN TAB PO SCH (09:00)
[2020-07-16] MEDS ORDERED: CALCIUM 600MG + VIT D 400 IU TAB PO SCH (09:00)
[2020-07-16] MEDS ORDERED: NON-FORMULARY MEDICATION (Biotin 5 mg capsule) PO SCH (09:00)
[2020-07-16] MEDS ORDERED: FLUTICASONE/VILANTEROL 200/25MCG 14 PUFFS/INHALER INH SCH (09:00)
[2020-07-16] MEDS ORDERED: PANTOprazole 40 MG TAB PO SCH (09:00)
[2020-07-16] MEDS: CHOLESTYRAMINE LIGHT 4 GM PKT PO SCH ×2 (10:18→13:51)
--- NOTE | 2020-07-16 11:16 | Progress Note ---
Date of Service F/U S/P laparoscopic appendectomy, POD 1 pt is doing fine, less abdominal pain, no nausea, no vomiting, tolerated diet, July 16, 2020 Assessment & Plan (1) Acute appendicitis: pt is a 74 year-old female who presents to Er with 6 weeks history RLQ pain, IMP; acute appendicitis Plan, I recommend to do laparoscopic appendectomy, possible open, D/W benefits, risks and alternatives of the surgery, the risk - infection, bleeding, abscess, injury other organs, bowel obstruction, VT, DVT, stroke, , pt and her daughter understood, they agree with the surgery, I answered all questions, pre-op antibiotic, 07/16/2020 11:13 AM F/U S/P lap appy POD 1 doing fine, I update information to pt about OR finding and the procedure pt had, inflammation and enlarge appendix, could not R/O tumor, pt understood, waiting pathology report discharge home today, the post op care instruction was given, F/U 2 weeks, Admission and Anticipated Discharge Date Admission Date: July 15, 2020 Physical Exam Constitutional: WD/WN, vitals as above well developed and well nourished Eyes: PERRL, conjunctivae normal, anicteric sclerae ENMT: external ear and nose normal, oropharynx normal Neck: trachea midline, no thyromegaly Respiratory: normal respiratory effort, lungs clear to auscultation normal respiratory effort Cardiovascular: RRR, no murmur, no edema Rate/Rhythm: regular rate and regular rhythm Gastrointestinal (Abdomen): Percussion/Palpation: + abdomen tender and abdomen soft mild tenderness on incision site, no rebound pain, no distend, all incisions intact, no redness, Musculoskeletal: no cyanosis or clubbing, extremities motor strength 5/5 Neurologic: awake Psychiatric: Orientation: alert and oriented x 3 Results & Data ([facility]) Vital Signs (Past 12 Hours) Vital Signs Temp Pulse Resp BP Pulse Ox 07/16/20 07:45 36.5 C 95 H 16 125/75 95 07/16/20 04:48 36.8 C 81 18 142/78 H 95 07/16/20 01:44 36.4 C L 82 14 131/80 95 07/15/20 23:40 36.4 C L 73 14 149/75 H 95 Laboratory Results Abnormal lab results 07/15/20 07/15/20 07/16/20 Range/Units 17:47 17:47 06:07 MPV 11.7 H 11.8 H (7.4-10.4) fL Lymph # (Auto) 0.71 L (1.2-3.4) K/uL Weber # (Auto) 0.72 H 0.10 L (0.11-0.59) K/uL Chloride 108 H (98-107) mmol/L Creatinine 0.57 L (0.6-1.2) mg/dl Total Bilirubin 1.5 H (0.2-1) mg/dl Lipase 65 L (73-393) U/L
--- NOTE | 2020-07-16 13:14 | Electrocardiogram Report ---
Test Reason : Blood Pressure : / mmHG Vent. Rate : 070 BPM Atrial Rate : 070 BPM P-R Int : 140 ms QRS Dur : 074 ms QT Int : 418 ms P-R-T Axes : 072 018 035 degrees QTc Int : 451 ms Poor data quality, interpretation may be adversely affected Normal sinus rhythm Septal infarct , age undetermined Abnormal ECG When compared with ECG of 16-MAY-2013 09:13, Septal infarct is now Present Confirmed by Galdino Monteiro ([id number]) on 07/16/2020 1:13:36 PM Referred By: Maria Luisa Manzo Confirmed By:Galdino Monteiro
[2020-07-16] MEDS: oxyCODONE/ACETAMINOPHEN 5mg/325mg TAB PO PRN ×2 (13:51→18:56)
[2020-07-16] MEDS: LACTATED RINGER'S 1,000 ML IV SCH (13:53)
[2020-07-16] MEDS ORDERED: ATORVASTATIN 20 MG TAB PO SCH (21:00)
--- NOTE | 2020-07-16 22:25 | Discharge Summary (DS) ---
ADMITTING DIAGNOSIS: Acute appendicitis. DISCHARGE DIAGNOSIS: Acute appendicitis. OPERATION: Laparoscopic appendectomy. SURGEON: Jacquelin Winslow MD. DETAILS OF DISCHARGE SUMMARY: This is a 74-year-old female who presented to the ED with a 6-week history of right lower quadrant pain. The patient had a CT scan diagnosis of acute appendicitis. I recommended to do the laparoscopic appendectomy. I took the patient to the OR. We did a laparoscopic appendectomy. The patient tolerated the procedure well and after the procedure, the patient was transferred to recovery room and later on transferred to regular floor. The patient doing fine overnight, no significant abdominal pain and the patient tolerated the diet. No fever. PHYSICAL EXAMINATION: VITAL SIGNS: Temperature is 36.5, heart rate is 95, respiratory rate is 16, blood pressure 125/75. O2 saturation 95% on room air. GENERAL: The patient is alert, awake, oriented x3. HEENT: Within normal limitation. NEUROLOGIC: Intact. NECK: No JVD. CHEST: Bilateral lung sounds clear. HEART: Normal S1, S2. No murmur. ABDOMEN: Soft, mild tenderness on the incision site. Nondistended. No rebound or pain. All incision intact and no redness. EXTREMITIES: No edema. The patient will go home today. We also updated the patient about the OR finding and the procedure we did. Also, I informed the patient of the appendix inflammation with enlargement, could not rule out a tumor, awaiting the pathology report. The patient understands. Also, I gave the patient postop care instruction. I will follow outpatient in 2 weeks.
== END 2020-07-16 18:50 | disposition home or self-care (01) ==
LOC: ED 14:12 → OR 20:00 → 3N 20:00

== ENCOUNTER 2022-07-29 06:19 | Observation (INO) ==
--- NOTE | 2022-07-29 06:39 | Emergency Department Note ---
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 Her last known well was midnight. She says she just did not feel right and it felt like her she had a TIA in 1977 and felt similar. She said when she stood up she felt like she was leaning to the right. She denies any focal numbness weakness no difficulty speaking or swallowing no change in vision no fever no recent illness no fall or trauma no chest pain or abdominal pain she had some low back pain for couple days. Home Medications Medication Instructions Recorded Confirmed Type biotin 5 mg capsule 5 mg PO HS 08/13/18 07/29/22 History calcium carbonate 600 mg calcium 600 mg PO BID 08/13/18 07/29/22 History (1,500 mg) tablet (Calcium) inhalational spacing device #1 ea 08/13/18 05/15/22 History (Vortex Holding Chamber) multivitamin 1 tab PO QAM 08/13/18 07/29/22 History oxygen-air delivery systems ##1 08/13/18 05/15/22 History ammonium lactate 12 % lotion 1 applic topical DIRECTED PRN 05/29/20 07/29/22 History DRY SKIN IN WINTER orphenadrine citrate 100 mg 100 mg PO BID PRN HEADACHES 05/29/20 07/29/22 History tablet,extended release sumatriptan succinate 50 mg tablet See Rx Instructions PO .COMPLEX 09/15/21 07/29/22 Rx #30 tabs albuterol sulfate 90 mcg/actuation 2 puff inhalation Q4H PRN 11/14/21 07/29/22 Rx aerosol inhaler (ProAir HFA) Shortness Of Breath #3 Inhalers famotidine 40 mg tablet 40 mg PO BID #180 tabs 11/14/21 07/29/22 Rx atorvastatin 20 mg tablet 20 mg PO HS #90 tabs 03/25/22 07/29/22 Rx mometasone 50 mcg/actuation nasal 2 spray intranasal BID #3 BTLS 04/01/22 07/29/22 Rx spray zolpidem 12.5 mg tablet,extended 12.5 mg PO HS PRN insomnia #90 tabs 04/08/22 07/29/22 Rx release,multiphase ciclesonide 160 mcg/actuation 1 puff inhalation BID #18.3 grams 04/17/22 07/29/22 Rx aerosol inhaler (Alvesco) olmesartan 20 mg tablet 10 mg PO DAILY #45 tabs 05/21/22 07/29/22 Rx ivcfhya-zlyifsxgdn-UZM-caffeine 30 1 cap PO DAILY PRN migraine 06/22/22 07/29/22 Rx mg-50 mg-325 mg-40 mg capsule headache #10 caps Allergies Allergy/AdvReac Type Severity Reaction Status Date / Time meloxicam Allergy Severe GI BLEED Verified 05/25/22 09:00 animal dander Allergy Intermediate Cough Verified 05/25/22 09:00 grass pollen Allergy Intermediate Cough Verified 05/25/22 09:00 mold Allergy Intermediate Cough Verified 05/25/22 09:00 diltiazem Allergy Mild Rash Verified 05/25/22 09:00 Past Med/Surg History Medical History (Updated 07/29/22 @ 14:17 by Vincenzo Ren MD) Allergic rhinitis due to dust Allergic rhinitis due to pollen Anxiety Asthma Cough Extrinsic asthma inhaler daily and prn Gastroesophageal reflux disease Hallux rigidus of right foot Hearing deficit BL OCHOA Hypercholesterolemia Insomnia Medial meniscus tear Migraine headache Obstructive sleep apnea syndrome in adult cpap Osteoarthritis Primary hypertension TIA (transient ischemic attack) 1975 due to OCPs Tubular adenoma of colon Surgical History H/O Mohs micrographic surgery for skin cancer H/O repair of rotator cuff History of bunionectomy History of cataract surgery bilateral History of cholecystectomy History of colonoscopy History of esophagogastroduodenoscopy (EGD) History of hysterectomy, supracervical History of laparoscopic appendectomy 07/15/20 @ [facility] History of tubal ligation S/P excision of acoustic neuroma Family History Mother Breast cancer with metaplasia. Father Prostate cancer Grandmother (Paternal) Family history of diabetes mellitus Other No family history of adverse response to anesthesia Denies family history of Ovarian cancer Myocardial infarction Colorectal cancer Social History Smoking Status: Former smoker Tobacco Type: Cigarettes Second Hand Exposure: No; Do You Dip or Chew Tobacco: No; Hx Alcohol Use: Yes Alcohol type: wine Hx Substance Use: No Preferred Language: Slovenian Communication Ability: Effective Infrastructure Technician Required: No Beliefs That Will Affect Care: None marital status: Current Living Situation: Significant Other current occupational status: retired Feels Safe at Home: Yes Childhood Exposure to Second-Hand Smoke: Yes Dental Care, Regularly: Yes Physical Activity Frequency: 5-6 Times per Week Seatbelt Use: always Sunscreen Use: Yes Assistive Devices: CPAP, Denture - Lower, Glasses and Hearing Aid - Bilateral Review of Systems A total of 10 systems reviewed and were otherwise negative Physical Exam Vital Signs Vital Signs - 24 hr 07/29/22 06:23 07/29/22 06:32 07/29/22 06:37 Temperature 36.7 C Temperature Source Temporal Artery Scan Pulse Rate 83 82 Pulse Rate [Finger] 88 Pulse Rate from SpO2 Sensor Pulse Rhythm [Finger] Regular Pulse Strength [Finger] Normal Respiratory Rate 20 16 Respiratory Effort / Characteristics Non-Labored Spontaneous Non-Labored Spontaneous Respiratory Depth Normal Blood Pressure 160/100 H Blood Pressure [Right Arm] 162/115 H Blood Pressure Mean 120 Blood Pressure Mean [Right Arm] 130 Blood Pressure Position Sitting Pulse Oximetry 100 95 Oxygen Delivery Method Room Air Room Air Sepsis Recent Fever Within 48 Hours No Sepsis New/Unexplained Change in Mental Status N/A Sepsis Action Taken by Nursing No Action Required 07/29/22 07:02 07/29/22 07:30 07/29/22 09:00 Temperature Temperature Source Pulse Rate 87 72 67 Pulse Rate [Finger] Pulse Rate from SpO2 Sensor 82 67 66 Pulse Rhythm [Finger] Pulse Strength [Finger] Respiratory Rate 25 H 20 20 Respiratory Effort / Characteristics Respiratory Depth Blood Pressure 175/110 H 134/97 146/85 H Blood Pressure [Right Arm] Blood Pressure Mean 131 109 105 Blood Pressure Mean [Right Arm] Blood Pressure Position Pulse Oximetry 99 97 97 Oxygen Delivery Method Sepsis Recent Fever Within 48 Hours Sepsis New/Unexplained Change in Mental Status Sepsis Action Taken by Nursing General: Well developed well nourished older female who appears in no acute distress, breathing comfortably on room air. Normal speech, nonslurred. Alert and orient x3. HEENT: Normal cephalic atraumatic. Pupils are equal round and reactive to light . Extraocular movements are intact. Oropharynx is pink with moist mucous membranes. No swelling of the mouth lips or tongue. Neck: Supple with a midline trachea. No meningeal signs or stiffness, no JVD or bruits. No Stridor. Chest: Clear to auscultation bilaterally. No wheezes or rhonchi. No increased work of breathing. Heart: Regular rate and rhythm without murmurs or gallops. Abdomen: Soft nontender, nondistended without rebound guarding or rigidity. Extremities: No cyanosis clubbing or edema. No calf tenderness or assymetry Spine/Back. Non tender to palpation. No CVA tenderness Skin: Good turgor without rashes. Neurologic exam: Cranial nerves two through 12 are intact. Motor and sensation are intact and symmetrical throughout. She may have a slight droop on the left and numbness. She had mild difficulty walking initially Course Administered Medications Discontinued Medications Acetaminophen/Butalbital/Caffeine (Butalbital/Acetamin/Caffeine Tab) 1 tab PO NOW STA Stop: 07/29/22 09:24 Last Admin: 07/29/22 10:15 Dose: 1 tab Documented By: CLAUDIA Aspirin (Aspirin 81 Mg Chew) 324 mg PO NOW STA Stop: 07/29/22 07:31 Last Admin: 07/29/22 07:34 Dose: 324 mg Documented By: CLAUDIA Sodium Chloride (Nss 1000ml) 1,000 mls @ 999 mls/hr IV .Q1H1M ONE Stop: 07/29/22 08:30 Last Infusion: 07/29/22 10:20 Dose: 0 mls/hr Documented By: Admin: 07/29/22 07:35 Dose: 999 mls/hr Documented By: CLAUDIA Ioversol (Optiray 320 500ml) 120 ml IV ONCE ONE Stop: 07/29/22 06:46 Last Admin: 07/29/22 06:46 Dose: 120 ml Documented By: ZAKIYA Lorazepam (Lorazepam 1 Mg Tab) 1 mg SL NOW STA Stop: 07/29/22 07:37 Last Admin: 07/29/22 07:44 Dose: 1 mg Documented By: CLAUDIA Critical Care Time Critical Care Time: Yes Total Critical Care Time: 35 Due to the patient's acute neurologic symptoms, the need to call a stroke alert, multiple conversations with stroke neurology and the family, frequent reassessment, consideration for thrombolytics which is a very time-limited treatment, consultation with the hospitalist, I have personally spent greater than 35 minutes of critical care time in the direct management of this patient. This includes bedside care, interpretation of diagnostic studies, and testing, discussion with consultants, patient, and family members, and other required patient management activities. This 35 minutes is in excess of all separately billable procedures. Medical Decision Making Differential Diagnosis Stroke, TIA, electrolyte or metabolic abnormality, vascular disease, intracranial process, infection, cardiac disease Medical Records Attestation: I reviewed the patient's medical records. Home Medications Current Medication List: was personally reviewed by me Laboratory Data Attestation: I reviewed the patient's lab results. 07/29/22 06:35 07/29/22 06:35 Lab Results 07/29/22 07/29/22 07/29/22 Range/Units 06:35 06:35 06:35 WBC 7.23 (4.8-10.8) K/ul RBC 5.20 (4.20-5.40) M/uL Hgb 15.0 (12.0-16.0) g/dl POC Hgb (12.0-16.0) g/dl Hct 45.4 (37.0-47.0) % POC Hct (37-47) % MCV 87.3 (80.0-100.0) fL MCH 28.8 (25.0-34.0) pg MCHC 33.0 (32.0-36.0) g/dL RDW Std Deviation 41.3 (36.4-46.3) fL RDW Coeff of Dinesh 13.0 (11.5-14.5) % Plt Count 198 (130-400) K/uL MPV 11.7 (9.4-12.4) fL Neutrophils % (Manual) 30 % Lymphocytes % (Manual) 46 % Monocytes % (Manual) 10 % Eosinophils % (Manual) 3 % Basophils % (Manual) 1 % Neutrophils # (Manual) 2.17 (1.40-6.50) K/uL Total Absolute Neuts 2.17 (1.4-6.5) K/uL Lymphocytes # (Manual) 3.33 (1.2-3.4) K/uL Total Abs Lymphocytes 4.05 H (1.2-3.4) K/uL Monocytes # (Manual) 0.72 H (0.11-0.59) K/uL Eosinophils # (Manual) 0.22 (0-0.50) K/uL Basophils # (Manual) 0.07 (0-0.2) K/uL Large Granular Lymphs 10 % # Lrg Granular Lymphs 0.72 K/uL RBC Morphology Unremarkable PT 10.3 (9.0-12.0) Seconds INR 0.9 (0.9-1.1) APTT 24.1 (21.0-31.0) Seconds PTT Ratio 0.9 POC Sodium (135-144) mmol/L Sodium 142 (136-145) mmol/L POC Potassium (3.3-5.0) mmol/L Potassium 3.9 (3.5-5.1) mmol/L POC Chloride (101-112) mmol/L Chloride 110 H (98-107) mmol/L Carbon Dioxide 26 (21-32) mmol/L POC Total CO2 (24-31) mmol/L Anion Gap 6 (3-11) POC Anion Gap (16-25) mmol/L POC BUN (7-18) mg/dl BUN 19 (6-23) mg/dl Creatinine 0.64 (0.6-1.2) mg/dl POC Creatinine (0.6-1.3) mg/dl Est Cr Clr Drug Dosing 72.2 ml/min Est GFR ( Amer) 101.9 ml/min Est GFR (Non-Af Amer) 87.9 ml/min BUN/Creatinine Ratio 29.7 H (10-20) Glucose 95 (70-99(Fasting)) mg/dl POC Glucose (70-99) mg/dl POC Glucose (other) (70-99) mg/dl Calcium 9.2 (8.6-10.3) mg/dl POC Ioniz Calcium Tayo (1.12-1.32) mmol/l Magnesium 2.1 (1.7-2.4) mg/dl Total Bilirubin 0.6 (0.2-1.0) mg/dl AST 28 (13-39) U/L ALT 21 (7-52) U/L Alkaline Phosphatase 59 (34-104) U/L Troponin I High Sens 4.7 (0-14) pg/ml Total Protein 6.8 (6.0-8.3) gm/dl Albumin 4.4 (3.4-5.0) gm/dl Globulin 2.4 L (2.5-4.0) gm/dl Albumin/Globulin Ratio 1.8 (0.9-2) SARS-CoV-2, RNA, NAAT (NEGATIVE) 07/29/22 07/29/22 07/29/22 Range/Units 06:36 06:40 06:41 WBC (4.8-10.8) K/ul RBC (4.20-5.40) M/uL Hgb (12.0-16.0) g/dl POC Hgb 15.3 (12.0-16.0) g/dl Hct (37.0-47.0) % POC Hct 45 (37-47) % MCV (80.0-100.0) fL MCH (25.0-34.0) pg MCHC (32.0-36.0) g/dL RDW Std Deviation (36.4-46.3) fL RDW Coeff of Dinesh (11.5-14.5) % Plt Count (130-400) K/uL MPV (9.4-12.4) fL Neutrophils % (Manual) % Lymphocytes % (Manual) % Monocytes % (Manual) % Eosinophils % (Manual) % Basophils % (Manual) % Neutrophils # (Manual) (1.40-6.50) K/uL Total Absolute Neuts (1.4-6.5) K/uL Lymphocytes # (Manual) (1.2-3.4) K/uL Total Abs Lymphocytes (1.2-3.4) K/uL Monocytes # (Manual) (0.11-0.59) K/uL Eosinophils # (Manual) (0-0.50) K/uL Basophils # (Manual) (0-0.2) K/uL Large Granular Lymphs % # Lrg Granular Lymphs K/uL RBC Morphology PT (9.0-12.0) Seconds INR (0.9-1.1) APTT (21.0-31.0) Seconds PTT Ratio POC Sodium 143 (135-144) mmol/L Sodium (136-145) mmol/L POC Potassium 3.8 (3.3-5.0) mmol/L Potassium (3.5-5.1) mmol/L POC Chloride 107 (101-112) mmol/L Chloride (98-107) mmol/L Carbon Dioxide (21-32) mmol/L POC Total CO2 25 (24-31) mmol/L Anion Gap (3-11) POC Anion Gap 16.0 (16-25) mmol/L POC BUN 19 H (7-18) mg/dl BUN (6-23) mg/dl Creatinine (0.6-1.2) mg/dl POC Creatinine 0.7 (0.6-1.3) mg/dl Est Cr Clr Drug Dosing ml/min Est GFR ( Amer) ml/min Est GFR (Non-Af Amer) ml/min BUN/Creatinine Ratio (10-20) Glucose (70-99(Fasting)) mg/dl POC Glucose 108 H (70-99) mg/dl POC Glucose (other) 95 (70-99) mg/dl Calcium (8.6-10.3) mg/dl POC Ioniz Calcium Tayo 1.22 (1.12-1.32) mmol/l Magnesium (1.7-2.4) mg/dl Total Bilirubin (0.2-1.0) mg/dl AST (13-39) U/L ALT (7-52) U/L Alkaline Phosphatase (34-104) U/L Troponin I High Sens (0-14) pg/ml Total Protein (6.0-8.3) gm/dl Albumin (3.4-5.0) gm/dl Globulin (2.5-4.0) gm/dl Albumin/Globulin Ratio (0.9-2) SARS-CoV-2, RNA, NAAT NEGATIVE (NEGATIVE) Imaging Data Attestation: I personally reviewed and interpreted this imaging study as follows: My Impression: CT head-no hemorrhage or mass effect seen upon my evaluation Radiologist's Impression: Head CT 07/29/22 06:[address] OF THE BRAIN; CT ANGIOGRAM OF THE BRAIN; CT ANGIOGRAM OF THE NECK CLINICAL HISTORY: Neurological deficit. Stroke like symptoms. COMPARISON STUDY: MRI of the brain dated 04/03/2011. TECHNIQUE: Unenhanced axial CT scan of the brain is performed. Subsequently, following the IV administration of 120 of Optiray 320, CT angiogram of the head and neck was performed from the aortic arch to the vertex. Images are reviewed in the axial, sagittal, and coronal planes. 3-D MIPS images are created and assessed. IV contrast was administered without complication. All measurements were calculated based on NASCET criteria. A dose lowering technique was utilized adhering to the principles of ALARA. CT DOSE: 1268.38 mGy.cm FINDINGS: Brain parenchyma: There is age-related involutional change noting mild subcor tical and periventricular microangiopathic disease. A small focus of right cerebellar encephalomalacia is unchanged and related to remote insult. There is no hemorrhage, mass effect, or evidence of acute territorial ischemia by CT criteria. There is no evidence of enhancing mass lesion on the angiogram phase images. The ventricles, sulci, and cisterns are prominent secondary to involutional change. Rojas-white matter differentiation is preserved. No extra- axial fluid collection is seen. Thoracic aorta: Visualized portions of the thoracic aorta are normal in caliber. The aortic arch demonstrates standard 3-vessel anatomy. Right carotid arterial system: The right common carotid artery is widely patent, as are the right internal and external carotid arteries. Left carotid arterial system: The left common carotid artery is widely patent, as are the left internal and external carotid arteries. Vertebral arteries: The vertebral arteries are widely patent bilaterally noting mild right-sided dominance. Subclavian arteries: Widely patent bilaterally. Intracranial vasculature: There is atherosclerotic calcification of the cavernous carotid arteries. The internal carotid arteries are patent at the skull base, as are the anterior and middle cerebral arteries bilaterally. The vertebrobasilar system and posterior cerebral arteries are widely patent. The right vertebral artery is dominant. There is no aneurysm, high-grade stenosis, or focal vessel cut off seen throughout the intracranial circulation. Jugular veins: Patent bilaterally. Dural sinuses: Patent. Lung apices: Partially visualized upper lobe lung parenchyma appears clear. Soft tissues: The visualized pharyngeal soft tissues are normal in appearance noting angiographic phase technique. The oropharyngeal airway appears widely patent. The thyroid gland is normal in size and heterogeneous in attenuation. The salivary glands are normal in appearance. No cervical lymphadenopathy is seen. Skeletal structures: The skeletal structures are osteopenic. There is postsurgical change from right occipital craniectomy. The calvarium otherwise appears intact. The cervical spine is maintained noting mild multilevel spondylosis. Orbits: The bony orbits are intact. Orbital contents are normal as visualized noting bilateral ocular lens implants. Sinuses and mastoids: The paranasal sinuses are clear. The mastoid air cells are well pneumatized. IMPRESSION: 1. There is no hemorrhage, mass effect, or evidence of acute territorial ischemia by CT criteria. 2. Unremarkable CT angiogram of the brain. 3. Unremarkable CT angiogram of the neck. ACT 112: Negative or not required by law. Electronically signed by: Cornelio Martines M.D. 07/29/2022 7:08 AM Head CTA 07/29/22 06:[address] OF THE BRAIN; CT ANGIOGRAM OF THE BRAIN; CT ANGIOGRAM OF THE NECK CLINICAL HISTORY: Neurological deficit. Stroke like symptoms. COMPARISON STUDY: MRI of the brain dated 04/03/2011. TECHNIQUE: Unenhanced axial CT scan of the brain is performed. Subsequently, following the IV administration of 120 of Optiray 320, CT angiogram of the head and neck was performed from the aortic arch to the vertex. Images are reviewed in the axial, sagittal, and coronal planes. 3-D MIPS images are created and assessed. IV contrast was administered without complication. All measurements were calculated based on NASCET criteria. A dose lowering technique was utilized adhering to the principles of ALARA. CT DOSE: 1268.38 mGy.cm FINDINGS: Brain parenchyma: There is age-related involutional change noting mild subcortical and periventricular microangiopathic disease. A small focus of right cerebellar encephalomalacia is unchanged and related to remote insult. There is no hemorrhage, mass effect, or evidence of acute territorial ischemia by CT criteria. There is no evidence of enhancing mass lesion on the angiogram phase images. The ventricles, sulci, and cisterns are prominent secondary to involutional change. Rojas-white matter differentiation is preserved. No extra- axial fluid collection is seen. Thoracic aorta: Visualized portions of the thoracic aorta are normal in caliber. The aortic arch demonstrates standard 3-vessel anatomy. Right carotid arterial system: The right common carotid artery is widely patent, as are the right internal and external carotid arteries. Left carotid arterial system: The left common carotid artery is widely patent, as are the left internal and external carotid arteries. Vertebral arteries: The vertebral arteries are widely patent bilaterally noting mild right-sided dominance. Subclavian arteries: Widely patent bilaterally. Intracranial vasculature: There is atherosclerotic calcification of the cavernous carotid arteries. The internal carotid arteries are patent at the skull base, as are the anterior and middle cerebral arteries bilaterally. The ve rtebrobasilar system and posterior cerebral arteries are widely patent. The right vertebral artery is dominant. There is no aneurysm, high-grade stenosis, or focal vessel cut off seen throughout the intracranial circulation. Jugular veins: Patent bilaterally. Dural sinuses: Patent. Lung apices: Partially visualized upper lobe lung parenchyma appears clear. Soft tissues: The visualized pharyngeal soft tissues are normal in appearance noting angiographic phase technique. The oropharyngeal airway appears widely patent. The thyroid gland is normal in size and heterogeneous in attenuation. The salivary glands are normal in appearance. No cervical lymphadenopathy is seen. Skeletal structures: The skeletal structures are osteopenic. There is postsurgical change from right occipital craniectomy. The calvarium otherwise appears intact. The cervical spine is maintained noting mild multilevel spondylosis. Orbits: The bony orbits are intact. Orbital contents are normal as visualized noting bilateral ocular lens implants. Sinuses and mastoids: The paranasal sinuses are clear. The mastoid air cells are well pneumatized. IMPRESSION: 1. There is no hemorrhage, mass effect, or evidence of acute territorial ischemia by CT criteria. 2. Unremarkable CT angiogram of the brain. 3. Unremarkable CT angiogram of the neck. ACT 112: Negative or not required by law. Electronically signed by: Cornelio Martines M.D. 07/29/2022 7:08 AM Neck CTA 07/29/22 06:[address] OF THE BRAIN; CT ANGIOGRAM OF THE BRAIN; CT ANGIOGRAM OF THE NECK CLINICAL HISTORY: Neurological deficit. Stroke like symptoms. COMPARISON STUDY: MRI of the brain dated 04/03/2011. TECHNIQUE: Unenhanced axial CT scan of the brain is performed. Subsequently, fol lowing the IV administration of 120 of Optiray 320, CT angiogram of the head and neck was performed from the aortic arch to the vertex. Images are reviewed in the axial, sagittal, and coronal planes. 3-D MIPS images are created and assessed. IV contrast was administered without complication. All measurements were calculated based on NASCET criteria. A dose lowering technique was utilized adhering to the principles of ALARA. CT DOSE: 1268.38 mGy.cm FINDINGS: Brain parenchyma: There is age-related involutional change noting mild subcortical and periventricular microangiopathic disease. A small focus of right cerebellar encephalomalacia is unchanged and related to remote insult. There is no hemorrhage, mass effect, or evidence of acute territorial ischemia by CT criteria. There is no evidence of enhancing mass lesion on the angiogram phase images. The ventricles, sulci, and cisterns are prominent secondary to i nvolutional change. Rojas-white matter differentiation is preserved. No extra- axial fluid collection is seen. Thoracic aorta: Visualized portions of the thoracic aorta are normal in caliber. The aortic arch demonstrates standard 3-vessel anatomy. Right carotid arterial system: The right common carotid artery is widely patent, as are the right internal and external carotid arteries. Left carotid arterial system: The left common carotid artery is widely patent, as are the left internal and external carotid arteries. Vertebral arteries: The vertebral arteries are widely patent bilaterally noting mild right-sided dominance. Subclavian arteries: Widely patent bilaterally. Intracranial vasculature: There is atherosclerotic calcification of the cavernous carotid arteries. The internal carotid arteries are patent at the skull base, as are the anterior and middle cerebral arteries bilaterally. The vertebrobasilar system and posterior cerebral arteries are widely patent. The right vertebral artery is dominant. There is no aneurysm, high-grade stenosis, or focal vessel cut off seen throughout the intracranial circulation. Jugular veins: Patent bilaterally. Dural sinuses: Patent. Lung apices: Partially visualized upper lobe lung parenchyma appears clear. Soft tissues: The visualized pharyngeal soft tissues are normal in appearance noting angiographic phase technique. The oropharyngeal airway appears widely patent. The thyroid gland is normal in size and heterogeneous in attenuation. The salivary glands are normal in appearance. No cervical lymphadenopathy is seen. Skeletal structures: The skeletal structures are osteopenic. There is postsurgical change from right occipital craniectomy. The calvarium otherwise appears intact. The cervical spine is maintained noting mild m ultilevel spondylosis. Orbits: The bony orbits are intact. Orbital contents are normal as visualized noting bilateral ocular lens implants. Sinuses and mastoids: The paranasal sinuses are clear. The mastoid air cells are well pneumatized. IMPRESSION: 1. There is no hemorrhage, mass effect, or evidence of acute territorial ischemia by CT criteria. 2. Unremarkable CT angiogram of the brain. 3. Unremarkable CT angiogram of the neck. ACT 112: Negative or not required by law. Electronically signed by: Cornelio Martines M.D. 07/29/2022 7:08 AM Brain MRI 07/29/22 07:30 MR brain wo con CLINICAL HISTORY: dwi/flair/swi-stroke protocol TECHNIQUE: Multiplanar and multisequence MR images of the brain were obtained without intravenous contrast. Comparison: Comparison is made to MRI brain 07/29/2022 FINDINGS: Exam is limited by patient motion. No abnormal restricted diffusion is identified. The white matter is unremarkable. The ventricular system is normal in appearance. No mass is seen. There is no mass effect or midline shift. There is no evidence of acute intraparenchymal hemorrhage. Hemosiderin deposition is noted most prominently in the posterior fossa which may represent old hemorrhage. No extra axial fluid collections are seen. The corpus callosum, pituitary gland, and cerebellar tonsils appear grossly unremarkable. Flow voids of the major intracranial arterial vessels are identified. The imaged portions of the paranasal sinuses, mastoid air cells, and orbits are unremarkable. Postsurgical changes are seen in the right cerebellar region. IMPRESSION: No acute abnormalities. ACT 112: Negative or not required by law. Electronically signed by: Ralph Peck M.D. 07/29/2022 8:36 AM ECG Data Attestation: I personally reviewed and interpreted this ECG as follows: Indication: + weakness Rate (beats per minute): 88 Rhythm: + normal sinus ECG Intervals/blocks: + Normal QRS, + Normal QT and + Normal HI ECG Hunt: + Normal ECG ST segments: + Normal ST segments ECG Findings: + PVCs; no PACs Comparison ECG Date: from (07/15/22) Change: no significant change MDM Narrative This patient comes in as scribed above. She had a wake-up strokelike symptoms. She has some weakness on the face with some numbness she had trouble walking she tells me. I did a stroke alert her her last known well was midnight. IV access was established, EKG and multiple blood testing was obtained she had emergent CAT scans of the head as well as CT angiography of the head and neck. She was placed on a quality assurance monitor body. Dr. Teresa did evaluate her she does have some gait dysfunction. Her imaging was unremarkable blood work was unremarkable. She was given 1 L IV normal saline bolus, she was given aspirin [address] Teresa did want us to get a limited MRI which I ordered. I called and talked the tech and did everything I could to speed her up to get her over there also in the meantime I called and talked to pharmacy and told him that we might have a TNKase candidate due to her being a wake-up type stroke and be prepared but do not premix at this point. MRI was unremarkable. The patient was then evaluated again by Dr. Ortega from stroke neurology. He felt that she was doing significantly better and did not feel that the risk would outweigh the benefit at this point for TNK. She certainly beyond the 3-hour window and had a wake-up stroke. She then started having a migraine and I did give her Fioricet which she typically takes at home. I have consulted and discussed case with Dr. Reed due to and the mounting team saw the patient and will admit/observe her for further inpatient treatment and evaluation. It may be that she has small cortical stroke which is yet to show up on imaging it is also possible this could be related to her initial high blood pressure. Continuous cardiac monitoring: An order was placed in EMR for continuous cardiac monitoring: Upon my evaluation patient noted to be normal sinus rhythm with a rate of 88 Impression & Plan Stroke-like symptoms, Ambulatory dysfunction, Hypertension, Lab test negative for COVID-19 virus Discharge Plan Visit Data Chief Complaint: Neuro Symptoms/Deficit Stated Complaint: HX TIA-CAN'T WALK STRAIGHT,TROUBLE W/ SPEACH ED Provider: Vincenzo Ren Discharge Problem: Stroke-like symptoms, Ambulatory dysfunction, Hypertension, Lab test negative for COVID-19 virus
[2022-07-29] MEDS ORDERED: OPTIRAY 320 500ml IV ONE (06:45)
[2022-07-29 06:57] LABS: iSTAT Creatinine 0.7 mg/dl (0.6-1.3); iSTAT Hemoglobin 15.3 g/dl (12.0-16.0); iSTAT Ionized Calcium 1.22 mmol/l (1.12-1.32); iSTAT Potassium 3.8 mmol/L (3.3-5.0)
[2022-07-29 07:00] LABS: Hematocrit (blood only) 45.4 % (37.0-47.0); Mean Corpuscular Hemoglobin 28.8 pg (25.0-34.0); Mean Corpuscular Volume 87.3 fL (80.0-100.0); Mean Platelet Volume 11.7 fL (9.4-12.4); Platelet Count 198 K/uL (130-400); RDW Standard Deviation 41.3 fL (36.4-46.3); White Blood Count 7.23 K/ul (4.8-10.8)
--- NOTE | 2022-07-29 07:10 | CT Scan Report ---
UNENHANCED CT OF THE BRAIN; CT ANGIOGRAM OF THE BRAIN; CT ANGIOGRAM OF THE NECK CLINICAL HISTORY: Neurological deficit. Stroke like symptoms. COMPARISON STUDY: MRI of the brain dated 04/03/2011. TECHNIQUE: Unenhanced axial CT scan of the brain is performed. Subsequently, following the IV adminis tration of 120 of Optiray 320, CT angiogram of the head and neck was performed from the aortic arch t o the vertex. Images are reviewed in the axial, sagittal, and coronal planes. 3-D MIPS images are cre ated and assessed. IV contrast was administered without complication. All measurements were calculate d based on NASCET criteria. A dose lowering technique was utilized adhering to the principles of ALA RA. CT DOSE: 1268.38 mGy.cm FINDINGS: Brain parenchyma: There is age-related involutional change noting mild subcortical and periventricula r microangiopathic disease. A small focus of right cerebellar encephalomalacia is unchanged and relat ed to remote insult. There is no hemorrhage, mass effect, or evidence of acute territorial ischemia b y CT criteria. There is no evidence of enhancing mass lesion on the angiogram phase images. The ventr icles, sulci, and cisterns are prominent secondary to involutional change. Rojas-white matter differen tiation is preserved. No extra-axial fluid collection is seen. Thoracic aorta: Visualized portions of the thoracic aorta are normal in caliber. The aortic arch demo nstrates standard 3-vessel anatomy. Right carotid arterial system: The right common carotid artery is widely patent, as are the right int ernal and external carotid arteries. Left carotid arterial system: The left common carotid artery is widely patent, as are the left international student counselor al and external carotid arteries. Vertebral arteries: The vertebral arteries are widely patent bilaterally noting mild right-sided wendi nance. Subclavian arteries: Widely patent bilaterally. Intracranial vasculature: There is atherosclerotic calcification of the cavernous carotid arteries. T he internal carotid arteries are patent at the skull base, as are the anterior and middle cerebral ar teries bilaterally. The vertebrobasilar system and posterior cerebral arteries are widely patent. The right vertebral artery is dominant. There is no aneurysm, high-grade stenosis, or focal vessel cut o ff seen throughout the intracranial circulation. Jugular veins: Patent bilaterally. Dural sinuses: Patent. Lung apices: Partially visualized upper lobe lung parenchyma appears clear. Soft tissues: The visualized pharyngeal soft tissues are normal in appearance noting angiographic pha se technique. The oropharyngeal airway appears widely patent. The thyroid gland is normal in size and heterogeneous in attenuation. The salivary glands are normal in appearance. No cervical lymphadenopa thy is seen. Skeletal structures: The skeletal structures are osteopenic. There is postsurgical change from right occipital craniectomy. The calvarium otherwise appears intact . The cervical spine is maintained noting mild multilevel spondylosis. Orbits: The bony orbits are intact. Orbital contents are normal as visualized noting bilateral ocular lens implants. Sinuses and mastoids: The paranasal sinuses are clear. The mastoid air cells are well pneumatized. IMPRESSION: 1. There is no hemorrhage, mass effect, or evidence of acute territorial ischemia by CT criteria. 2. Unremarkable CT angiogram of the brain. 3. Unremarkable CT angiogram of the neck. ACT 112: Negative or not required by law. Electronically signed by: Cornelio Martines M.D. 07/29/2022 7:08 AM
[2022-07-29 07:21] LABS: ALC (manual) 4.05 K/uL (1.2-3.4); ANC (manual) 2.17 K/uL (1.4-6.5); Basophils # (manual) 0.07 K/uL (0-0.2); Basophils % (manual) 1 %; Eosinophils # (manual) 0.22 K/uL (0-0.50); Eosinophils % (manual) 3 %; Large Granular Lymph # (manua 0.72 K/uL; Large Granular Lymph % (manual) 10 %; Lymphocytes # (manual) 3.33 K/uL (1.2-3.4); Lymphocytes % (manual) 46 %; Monocytes # (manual) 0.72 K/uL (0.11-0.59); Monocytes % (manual) 10 %; Neutrophils # (manual) 2.17 K/uL (1.40-6.50); Neutrophils % (manual) 30 %; RBC Morphology Unremarkable
[2022-07-29 07:23] LABS: Troponin I High Sensitivity 4.7 pg/ml (0-14)
[2022-07-29 07:28] LABS: INR 0.9 (0.9-1.1); Partial Thromboplastin Ratio 0.9; Partial Thromboplastin Time 24.1 Seconds (21.0-31.0); Prothrombin Time 10.3 Seconds (9.0-12.0)
[2022-07-29] MEDS ORDERED: ASPIRIN 81 MG CHEW PO STA (07:30)
[2022-07-29] MEDS ORDERED: SODIUM CHLORIDE 0.9% 1000ML 1,000 ML IV ONE (07:30)
[2022-07-29] MEDS ORDERED: LORazepam 1 MG TAB SL STA (07:36)
[2022-07-29 07:40] LABS: Potassium 3.9 mmol/L (3.5-5.1)
[2022-07-29 07:45] LABS: Albumin Globulin Ratio 1.8 (0.9-2); Albumin Level 4.4 gm/dl (3.4-5.0); BUN Creatinine Ratio 29.7 (10-20); Bilirubin,Total 0.6 mg/dl (0.2-1.0); Calcium 9.2 mg/dl (8.6-10.3); Creatinine Clr Calc Pharmacy 72.2 ml/min; Est GFR (African American) 101.9 ml/min; Est GFR (Non-African American) 87.9 ml/min; Globulin 2.4 gm/dl (2.5-4.0); Magnesium 2.1 mg/dl (1.7-2.4); Total Protein 6.8 gm/dl (6.0-8.3)
--- NOTE | 2022-07-29 08:37 | Magnetic Resonance Report ---
MR brain wo con CLINICAL HISTORY: dwi/flair/swi-stroke protocol TECHNIQUE: Multiplanar and multisequence MR images of the brain were obtained without intravenous con trast. Comparison: Comparison is made to MRI brain 07/29/2022 FINDINGS: Exam is limited by patient motion. No abnormal restricted diffusion is identified. The white matter i s unremarkable. The ventricular system is normal in appearance. No mass is seen. There is no mass eff ect or midline shift. There is no evidence of acute intraparenchymal hemorrhage. Hemosiderin depositi on is noted most prominently in the posterior fossa which may represent old hemorrhage. No extra axia l fluid collections are seen. The corpus callosum, pituitary gland, and cerebellar tonsils appear mt ssly unremarkable. Flow voids of the major intracranial arterial vessels are identified. The imaged portions of the para nasal sinuses, mastoid air cells, and orbits are unremarkable. Postsurgical changes are seen in the r ight cerebellar region. IMPRESSION: No acute abnormalities. ACT 112: Negative or not required by law. Electronically signed by: Ralph Peck M.D. 07/29/2022 8:36 AM
[2022-07-29] MEDS ORDERED: BUTALBITAL/ACETAMIN/CAFFEINE TAB PO STA (09:23)
--- NOTE | 2022-07-29 09:39 | History & Physical Report ---
Date of Service July 29, 2022 Assessment & Plan (1) Migraine headache: Plan: Emily Candelario) is a 76yo female with a history of migraine headaches, TIA (1975 suspected 2/2 OCP use), asthma, HTN, HLD, GERD who presented with acute imbalance, headache, and photophobia #Stroke-like symptoms Atypical migraine vs. TIA Clinical picture shows features of atypical migraine: photophobia, unilateral headache in the setting of chronic migraines, and imbalance TIA/stroke workup was followed given the new feature of her migraine (imbalance), remote history of a TIA in 1975 (likely 2/2 OCP use), and HTN/HLD risk factors CT head, CTA head/neck and MRI brain did not show acute ischemic changes or hemorrhage ECG showed PVCs, but no arrhythmias or acute ischemic changes. Can consider outpatient cardiac monitoring Echocardiogram pending Optimize HTN/HLD risk factors as below #Hypertension Olmesartan 20mg Hypertensive up to 170s/110s in the setting of pain At-home BP readings are normotensive, recommend BP cuff calibration in outpatient setting Will defer adjusting BP meds for now, given potential fall risk with hypotension/imbalance #HLD Home dose Atorvastatin 20mg. Increase to 40mg Most recent lipid panel 03/19/22: TG 117, total cholesterol 191, LDL 104, HDL 64 Start ASA 81 mg daily - keeping in mind ASCVD 23.3% #Asthma Albuterol PRN #GERD Famotidine 40mg PO BID (2) Hypercholesterolemia: (3) Primary hypertension: (4) Asthma: (5) Gastroesophageal reflux disease: History of Present Illness Primary Care Provider: Ainsley Graves MD Emily Candelario) is a 76yo female with a history of migraine headaches, TIA (1975 suspected 2/2 OCP use), asthma, HTN, HLD, GERD, who presents after she woke up this morning around 5:45am with stroke-like symptoms including dysequilibrium with a right-sided lean. Last known well was upon going to sleep around midnight. Denies fevers, chills, vision changes, chest pain, palpitations, SOB, lower extremity edema, abdominal pain, nausea, vomiting, dysuria, hematochezia, melena, back pain, dizziness, numbness, weakness, or other symptoms. Denies recent illness and recent travel. Upon arrival, vitals were notable for elevated BP (160-170s/100-110s); no tachycardia, no tachypnea, patient afebrile, spO2 adequate on room air. Initial labs were relatively unremarkable; no leukocytosis, no anemia, platelets wnl, no electrolyte abnormalities, creatinine not elevated, LFTs wnl, Tbili not elevated, covid PCR negative. In the ED, patient received NSS 1L bolus (x1), ASA 324mg PO (x1), and a dose of Fioricet. EKG: NSR with occasional PVCs, no overt ischemic change Imaging: CT head: no acute intracranial abnormality CTA head/neck: no acute findings MRI brain: no acute intracranial abnormality Currently: Accompanied by Rich, significant other. Sensation of dysequilibrium and imbalance began at 5:45am on 07/29/22 when she awoke to go to the bathroom. She was walking into furniture and had to regain her balance by holding onto the door. She closed her eyes to see if that triggered a loss of balance, and it did. She did not fall or have any LOC. No recent head trauma or falls. No sensation of room spinning. Earlier this morning she had trouble finding her words but no slurred speech. No arm or leg weakness. No luminous phenomenon or vision loss. She endorses has a right-sided, occipital/temporal headache (pain rated 6/10) accompanied by R-sided photophobia with some tingling on the right side of her face. This morning she did not take sumatriptan to alleviate her symptoms. She gets migraines about twice monthly, currently treated with sumatriptan 50mg abortive therapy, which does not completely resolve her headaches. Last migraine was 5 days ago, Wednesday07/24/22. She has a history of PVCs but does not report any recent palpitations. FHx of AFIB in father and brother. No FHX strokes or NH. Exercises 5x/week (1 hr classes Silver Sneakers with weights and aerobics). Taking atorvastatin 20mg. Most recent lipid panel 03/19/22: TG 117, total cholesterol 191, LDL 104, HDL 64. She sees her PCP Dr. Graves q6 months. Within the past month or two she started olmesartan 20mg daily. She notes occasional light-headedness but did not experience that with her loss of balance. Measures BP at home daily with automatic arm cuff: 110s/70s. Overall increased fatigue and taking naps in the afternoon which is new for her. Takes Ambien nightly, sleeps around 6 hours nightly with difficulty falling asleep. Surrogate decision-maker in case of an emergency: [Deborah Hector, daughter. Phone number [phone]] Full code Allergies Allergy/AdvReac Type Severity Reaction Status Date / Time meloxicam Allergy Severe GI BLEED Verified 05/25/22 09:00 animal dander Allergy Intermediate Cough Verified 05/25/22 09:00 grass pollen Allergy Intermediate Cough Verified 05/25/22 09:00 mold Allergy Intermediate Cough Verified 05/25/22 09:00 diltiazem Allergy Mild Rash Verified 05/25/22 09:00 Home Medications Medication Instructions Recorded Confirmed Type biotin 5 mg capsule 5 mg PO HS 08/13/18 07/29/22 History calcium carbonate 600 mg calcium 600 mg PO BID 08/13/18 07/29/22 History (1,500 mg) tablet (Calcium) inhalational spacing device #1 ea 08/13/18 05/15/22 History (Vortex Holding Chamber) multivitamin 1 tab PO QAM 08/13/18 07/29/22 History oxygen-air delivery systems ##1 08/13/18 05/15/22 History ammonium lactate 12 % lotion 1 applic topical DIRECTED PRN 05/29/20 07/29/22 History DRY SKIN IN WINTER orphenadrine citrate 100 mg 100 mg PO BID PRN HEADACHES 05/29/20 07/29/22 History tablet,extended release sumatriptan succinate 50 mg tablet See Rx Instructions PO .COMPLEX 09/15/21 07/29/22 Rx #30 tabs albuterol sulfate 90 mcg/actuation 2 puff inhalation Q4H PRN 11/14/21 07/29/22 Rx aerosol inhaler (ProAir HFA) Shortness Of Breath #3 Inhalers famotidine 40 mg tablet 40 mg PO BID #180 tabs 11/14/21 07/29/22 Rx atorvastatin 20 mg tablet 20 mg PO HS #90 tabs 03/25/22 07/29/22 Rx mometasone 50 mcg/actuation nasal 2 spray intranasal BID #3 BTLS 04/01/22 07/29/22 Rx spray zolpidem 12.5 mg tablet,extended 12.5 mg PO HS PRN insomnia #90 tabs 04/08/22 07/29/22 Rx release,multiphase ciclesonide 160 mcg/actuation 1 puff inhalation BID #18.3 grams 04/17/22 07/29/22 Rx aerosol inhaler (Alvesco) olmesartan 20 mg tablet 10 mg PO DAILY #45 tabs 05/21/22 07/29/22 Rx tmvhyll-grvqjpmumn-CZA-caffeine 30 1 cap PO DAILY PRN migraine 06/22/22 07/29/22 Rx mg-50 mg-325 mg-40 mg capsule headache #10 caps aspirin 81 mg tablet,delayed 81 mg PO DAILY #30 tabs 07/29/22 Rx release (Adult Aspirin Regimen) atorvastatin 40 mg tablet 40 mg PO DAILY #30 tabs 07/29/22 Rx Past Med/Surg History Medical History (Updated 07/29/22 @ 14:17 by Vincenzo Ren MD) Allergic rhinitis due to dust Allergic rhinitis due to pollen Anxiety Asthma Cough Extrinsic asthma inhaler daily and prn Gastroesophageal reflux disease Hallux rigidus of right foot Hearing deficit BL OCHOA Hypercholesterolemia Insomnia Medial meniscus tear Migraine headache Obstructive sleep apnea syndrome in adult cpap Osteoarthritis Primary hypertension TIA (transient ischemic attack) 1975 due to OCPs Tubular adenoma of colon Surgical History H/O Mohs micrographic surgery for skin cancer H/O repair of rotator cuff History of bunionectomy History of cataract surgery bilateral History of cholecystectomy History of colonoscopy History of esophagogastroduodenoscopy (EGD) History of hysterectomy, supracervical History of laparoscopic appendectomy 07/15/20 @ [facility] History of tubal ligation S/P excision of acoustic neuroma Family History Mother Breast cancer with metaplasia. Father Prostate cancer Grandmother (Paternal) Family history of diabetes mellitus Other No family history of adverse response to anesthesia Denies family history of Ovarian cancer Myocardial infarction Colorectal cancer Social History Smoking Status: Former smoker Tobacco Type: Cigarettes Second Hand Exposure: No; Do You Dip or Chew Tobacco: No; Hx Alcohol Use: Yes Alcohol type: wine Hx Substance Use: No Preferred Language: Amharic Communication Ability: Effective Machine Silver Stripper Required: No Beliefs That Will Affect Care: Restoration marital status: Current Living Situation: Significant Other current occupational status: retired Feels Safe at Home: Yes Childhood Exposure to Second-Hand Smoke: Yes Dental Care, Regularly: Yes Physical Activity Frequency: 5-6 Times per Week Seatbelt Use: always Sunscreen Use: Yes Assistive Devices: CPAP, Denture - Lower, Glasses and Hearing Aid - Bilateral Review of Systems Review of Systems: All systems reviewed & are unremarkable except as noted in HPI & below Physical Exam Physical Exam: Appearance: lights off, lying in hospital bed with head of bed elevated, NAD. Non-toxic appearing. Respiratory: Normal respiratory effort. Breathing room air. Lungs CTA BL No peripheral or central cyanosis Cardiovascular: regular rate and rhythm without ectopy normal S1, S2, no appreciable murmurs no carotid bruits no LE edema, erythema or skin changes BL Gastrointestinal (Abdomen): no pain/rebound/guarding to palpation in all quadrants Neurologic: Alert, oriented x3 Answering questions appropriately with fluent speech Diminished hearing right ear with +photophobia in the R eye, otherwise CN 2-12 intact Sensation to gross touch intact in the UE/LE bilaterally Motor/strength: 5/5 for shoulder shrug, arm abduction, hand sifter and miller, hip flexion, plantar flexion, dorsiflexion Cerebellar: Heel to lindsay testing intact, rapid alternating movements intact Results & Data Results & Data Vital Signs (Past 12 Hours) Vital Signs Temp Pulse Pulse Resp BP BP Pulse Ox 07/29/22 07:30 72 20 134/97 97 07/29/22 07:02 87 25 H 175/110 H 99 07/29/22 06:37 82 07/29/22 06:32 88 16 162/115 H 95 07/29/22 06:23 36.7 C 83 20 160/100 H 100 O2 Del Method 07/29/22 07:30 07/29/22 07:02 07/29/22 06:37 07/29/22 06:32 Room Air 07/29/22 06:23 Room Air Code Status & VTE Plan Code Status Full code VTE Prophylaxis Plan VTE Prophylaxis will be ordered: Yes Supervising Physician Co-Signing Physician Notes I personally examined the patient and verified all loving points of history and exam, discussed case, and agree with decision making with Dr Pedraza and Mehreen Valente MS4 Woke up with a headache and some unsteadiness, questionable facial droop. Came to the ERstroke alertno tPA warranted. Feeling better by the time I see her. Vitals noted, in general she is awake and alert pleasant no distress. HEENT normocephalic atraumatic mucous membranes moist. Breathing unlabored no accessory muscle use good effort. Skin shows no rashes no pallor or icterus. Neuro without focal deficits. MRI brain, CT head and neck, CBC, basic metabolic panel, lipid panel noted. Echocardiogram done results not yet read, troponin noted. TIA versus atypical migrainefortunately symptoms have all resolved. After extensive discussion with patientwhile I favor atypical migraine given the nonspecific symptoms, her frequent migraines, the fact that she has a headache today, and the fact that its resolved in a pattern that otherwise it is coinciding with the pattern of her resolving migrainebecause she is 76 with hypertension and dyslipidemia it is almost impossible to rule out a small vessel TIA. She expresses understanding of this. For now 81 mg aspirin and increase her atorvastatin to 40 mg. Follow clinicallyif this starts to become a clear pattern of her migraines, then it becomes more evident that this was not cerebrovascular ischemia, and the aspirin/Lipitor can be switched back to her previous regimen. At the same time if over the coming months she shows anything consistent with vascular disease, then obviously maintain. As it relates to her migraines in particular, we discussed the possibility of switching one of her antihypertensives to something like verapamil or propanolol that could have a prophylactic effectbut she would like to understandably discuss further with her PCP and make changes more slowly (which I also agree with given that we were increasing the statin and adding an aspirin now). Safe/stable for home. Otherwise as above. Resident Activity Tracking Resident Involvement: Resident Care Provided Care Provided: Adult Hospital Medicine
[2022-07-29] MEDS ORDERED: ALBUTEROL HFA 8 GM INHALER INH PRN (12:54)
--- NOTE | 2022-07-29 16:48 | Discharge Summary ---
Date of Service July 29, 2022 Admission HPI Per Admitting Provider Emily Candelario) is a 76yo female with a history of migraine headaches, TIA (1976 suspected 2/2 OCP use), asthma, HTN, HLD, GERD, who presents after she woke up this morning around 5:45am with stroke-like symptoms including dysequilibrium with a right-sided lean. Last known well was upon going to sleep around midnight. Denies fevers, chills, vision changes, chest pain, palpitations, SOB, lower extremity edema, abdominal pain, nausea, vomiting, dysuria, hematochezia, melena, back pain, dizziness, numbness, weakness, or other symptoms. Denies recent illness and recent travel. Upon arrival, vitals were notable for elevated BP (160-170s/100-110s); no tachycardia, no tachypnea, patient afebrile, spO2 adequate on room air. Initial labs were relatively unremarkable; no leukocytosis, no anemia, platelets wnl, no electrolyte abnormalities, creatinine not elevated, LFTs wnl, Tbili not elevated, covid PCR negative. In the ED, patient received NSS 1L bolus (x1), ASA 324mg PO (x1), and a dose of Fioricet. EKG: NSR with occasional PVCs, no overt ischemic change Imaging: CT head: no acute intracranial abnormality CTA head/neck: no acute findings MRI brain: no acute intracranial abnormality Currently: Accompanied by Rich, significant other. Sensation of dysequilibrium and imbalance began at 5:45am on 07/29/22 when she awoke to go to the bathroom. She was walking into furniture and had to regain her balance by holding onto the door. She closed her eyes to see if that triggered a loss of balance, and it did. She did not fall or have any LOC. No recent head trauma or falls. No sensation of room spinning. Earlier this morning she had trouble finding her words but no slurred speech. No arm or leg weakness. No luminous phenomenon or vision loss. She endorses has a right-sided, occipital/temporal headache (pain rated 6/10) accompanied by R-sided photophobia with some tingling on the right side of her face. This morning she did not take sumatriptan to alleviate her symptoms. She gets migraines about twice monthly, currently treated with sumatriptan 50mg abortive therapy, which does not completely resolve her headaches. Last migraine was 5 days ago, Wednesday07/24/22. She has a history of PVCs but does not report any recent palpitations. FHx of AFIB in father and brother. No FHX strokes or [place]. Exercises 5x/week (1 hr classes Silver Sneakers with weights and aerobics). Taking atorvastatin 20mg. Most recent lipid panel 03/19/22: TG 117, total cholesterol 191, LDL 104, HDL 64. She sees her PCP Dr. Graves q6 months. Within the past month or two she started olmesartan 20mg daily. She notes occasional light-headedness but did not experience that with her loss of balance. Measures BP at home daily with automatic arm cuff: 110s/70s. Overall increased fatigue and taking naps in the afternoon which is new for her. Takes Ambien nightly, sleeps around 6 hours nightly with difficulty falling asleep. Surrogate decision-maker in case of an emergency: [Deborah Hector, daughter. Phone number [phone]] Full code Admission Exam Per Admitting Provider Physical Exam: Appearance: lights off, lying in hospital bed with head of bed elevated, NAD. Non-toxic appearing. Respiratory: Normal respiratory effort. Breathing room air. Lungs CTA BL No peripheral or central cyanosis Cardiovascular: regular rate and rhythm without ectopy normal S1, S2, no appreciable murmurs no carotid bruits no LE edema, erythema or skin changes BL Gastrointestinal (Abdomen): no pain/rebound/guarding to palpation in all quadrants Neurologic: Alert, oriented x3 Answering questions appropriately with fluent speech Diminished hearing right ear with +photophobia in the R eye, otherwise CN 2-12 intact Sensation to gross touch intact in the UE/LE bilaterally Motor/strength: 5/5 for shoulder shrug, arm abduction, hand dyer helper, hip flexion, plantar flexion, dorsiflexion Cerebellar: Heel to lindsay testing intact, rapid alternating movements intact Principal Diagnosis Stroke-like symptoms, atypical migraine, elevated BP Discharge Exam Physical Exam: Appearance: awake, watching TV, laying in hospital bed with head of bed elevated, NAD Respiratory: CTABL, breathing nonlabored Cardiovascular: RRR, no murmur appreciated, extremities well-perfused Neurologic: AOx3, speech clear and fluent, CN2-12 grossly intact, strength 5/5 in UE and LE BL, no focal neurologic deficit Discharge Data Allergies Allergy/AdvReac Type Severity Reaction Status Date / Time meloxicam Allergy Severe GI BLEED Verified 05/25/22 09:00 animal dander Allergy Intermediate Cough Verified 05/25/22 09:00 grass pollen Allergy Intermediate Cough Verified 05/25/22 09:00 mold Allergy Intermediate Cough Verified 05/25/22 09:00 diltiazem Allergy Mild Rash Verified 05/25/22 09:00 Consultations 07/29/22 09:20 ED Decision to Admit Stat Ordered Studies 07/29/22 06:28 CT angio head w con Stat CT angio neck with con Stat CT head/brain wo con Stat 07/29/22 07:30 MRI Brain [MR brain wo con] Stat Hospital Course (1) Migraine headache: Stroke-like symptoms, complicated migraine Imaging performed on admission (CT head, CTA head/neck, MRI brain) was negative for acute ischemic change, hemorrhage, or other acute process. EKG showed NSR with PVCs without dysrhythmia or ischemic change. Given temporal association between stroke-like symptoms with migrainous symptoms, the lack of ischemia or hemorrhage on imaging, and the lack of large vessel disease on CTA, patient's clinical picture overall was felt to be secondary to a complicated migraine. However, because a TIA could not be ruled out, and because patient has multiple risk factors for atherosclerotic disease (HTN and HLD), we recommended optimizing these risk factors by increasing patient's atorvastatin dose (from 20mg to 40mg) and adding daily ASA 81mg. Patient's elevated BP normalized as her symptoms improved, and so we did not alter patient's antihypertensive regimen, but we recommend consideration of swapping one of patient's antihypertensives for verapamil in order to see if patient benefits from verapamil's migraine prophylactic effect. Hypertension Patient's BP on admission was elevated to the 170s/110s, but this returned to normal range when patient's symptoms (primarily headache) improved. Patient's elevated BP was felt to be secondary to pain rather than uncontrolled hypertension, especially considering patient reported her BPs at home are regularly in the 110/70s range. Patient's home antihypertensive regimen was not changed, though, as noted above, we do recommend outpatient consideration of swapping one of patient's current antihypertensives for verapamil. HLD As a part of our effort to optimize patient's atherosclerosis risk factors, patient's atorvastatin dose was increased from 20mg to 40mg daily. Patient's most recent lipid profile was from February 2022; we recommend repeating this on an outpatient basis over the next few months. Asthma Patient's home regimen was continued during this hospital stay. GERD Patient's home regimen was continued during this hospital stay. RECOMMENDATIONS: As noted above in problem number one, patient's elevated BP normalized as her symptoms improved, and so we did not alter patient's antihypertensive regimen, but we do recommend consideration of swapping one of patient's antihypertensives for verapamil in order to see if patient benefits from verapamil's migraine prophylactic effect. (2) Hypercholesterolemia: (3) Primary hypertension: (4) Asthma: (5) Gastroesophageal reflux disease: Total Time Total Time Spent Total Time Spent (In Minutes): <30 Discharge Plan Discharge Items Patient Disposition: Home - Self-Care Reason For Visit: HX TIA-CAN'T WALK STRAIGHT,TROUBLE W/ SPEECH Discharge Diagnosis: Stroke-like symptoms, atypical migraine Activity: Resume your previous activity Non-emergency contact: Primary Care Provider Call non-emergency contact if: you have any medication questions and your symptoms worsen Follow-up/Referrals: Ainsley Graves MD [Primary Care Provider] - Diet: Heart Healthy Addtl Attending Provider Instructions: You were admitted to the hospital for stroke-like symptoms and headache/migraine. We evaluated your symptoms with multiple various tests, and we suspect your symptoms were due to a complicated migraine rather than a stroke or TIA (aka a "mini-stroke"). You were treated with pain control medicine as we monitored you throughout the day. Your symptoms have improved, and we feel it is safe for you to return home. A discharge summary will be sent to your primary care physician to ensure continuity of care. Please bring this discharge summary with you to your next office appointment so that your provider can review it at that time. Follow-up appointments: We have requested a follow-up appointment with your primary care physician (Dr. Graves) within one week of discharge. Please call their office if you do not hear from them. Keep all your follow-up appointments as already scheduled. If you cannot make an appointment, notify your provider. Medications: Your medication list has been reviewed and reconciled upon discharge to ensure accuracy and continuity of care. An updated list of all your medications is included with your hospital discharge paperwork. Please review this list closely, and make note of any changes. * We sent a new medication called aspirin to your pharmacy. Take aspirin (81mg) one tablet daily. * We changed your dose of atorvastatin (Lipitor) - you were previously taking 20mg daily, but we recommend you start taking 40mg daily. We have sent this increased dose to your pharmacy. Take atorvastatin (40mg) one tablet daily. If you have any issues filling these prescriptions, please call [phone] and ask to leave a message for Dr. Nir Pedraza. Take your medications as instructed; do not skip a dose of your medicines. Make sure all of your doctors know every medicine you are taking (including mdaa-eov-xivutlx medicines, vitamins, and supplements). Call your primary care provider before taking any new medicines (including ffjx-zcr-onryvrr medicines, vitamins, and supplements), because some of these may interact with your current medications, or may make your symptoms worse. Tell your primary care provider if you cannot afford your medications. CONTACT YOUR PRIMARY CARE PROVIDER if you experience any of the following: Dizziness or lightheadedness Difficulty following your treatment plan, or difficulty taking medications CALL 911 OR GO TO THE EMERGENCY DEPARTMENT if you experience any of the following: New sudden-onset stroke-like symptoms Sudden, severe abdominal pain or nausea/vomiting Severe chest pain, or chest pain that radiates (moves) to your jaw or arm Sudden, severe shortness of breath or difficulty breathing Thank you for allowing us to participate in your care. Pending Studies at Discharge: Yes Studies:: Complete transthoracic echocardiogram Stand-Alone Forms: My [facility] [employer] Medications and DC Order Prescriptions: New atorvastatin 40 mg tablet 40 mg PO DAILY Qty: 30 1RF aspirin [Adult Aspirin Regimen] 81 mg tablet,delayed release (DR/EC) 81 mg PO DAILY Qty: 30 1RF Continued mometasone 50 mcg/actuation spray,non-aerosol 2 spray INTNAS BID Qty: 3 3RF zolpidem 12.5 mg tablet,ext release multiphase 12.5 mg PO HS PRN (Reason: insomnia) Qty: 90 0RF Rx Instructions: 1 tablet per night as needed for sleep. Alvesco 160 mcg/actuation HFA aerosol inhaler 1 puff inhalation BID Qty: 18.3 3RF Rx Instructions: with food olmesartan 20 mg tablet 10 mg PO DAILY Qty: 45 3RF earjkxt-ryrtycqywg-QEX-caff [id number] mg capsule 1 cap PO DAILY PRN (Reason: migraine headache) Qty: 10 0RF biotin 5 mg capsule 5 mg PO HS calcium carbonate [Calcium 600] 600 mg calcium (1,500 mg) tablet 600 mg PO BID multivitamin tablet 1 tab PO QAM albuterol sulfate [ProAir HFA] 90 mcg/actuation HFA aerosol inhaler 2 puff INH Q4H PRN (Reason: Shortness Of Breath) Qty: 3 3RF famotidine 40 mg tablet 40 mg PO BID Qty: 180 3RF sumatriptan succinate 50 mg tablet See Rx Instructions PO .COMPLEX Qty: 30 3RF Rx Instructions: take 1 tab at onset of headache; if no relief may repeat 1 tab after at least 2 hrs; max = 4 tabs/24 hr PO ammonium lactate 12 % lotion 1 applic TOPICAL DIRECTED PRN (Reason: DRY SKIN IN WINTER) orphenadrine citrate 100 mg tablet extended release 100 mg PO BID PRN (Reason: HEADACHES) Discontinued atorvastatin 20 mg tablet 20 mg PO HS Qty: 90 3RF Rx Instructions: TAKE 1 TABLET EVERY EVENING No Action (DME) oxygen-air delivery systems device See Dose Instructions .ROUTE .MEDSUPPLY Qty: 1 Rx Instructions: 7 cm of water Qhs. (DME) Vortex Holding Chamber spacer See Dose Instructions .ROUTE .MEDSUPPLY Qty: 1 Rx Instructions: Use with inhaler. Discharge Orders: Discharge Order (Routine); Ordered 07/29/22 Ordered By: Nir Pedraza Admission Data Admit Date/Time: 07/29/22 09:30 Attending Provider: Nir Pedraza Admit Provider: Nir Pedraza Primary Care Provider: Ainsley Graves Other Providers: Jacob Tan Other Interventions: Discharge Summary Assessment (RN) Last Done: 07/29/22 16:10 Supervising Physician Co-Signing Physician Notes I personally examined the patient and verified all loving points of history and exam, discussed case, and agree with decision making with Dr Pedraza and Mehreen Valente MS4 Woke up with a headache and some unsteadiness, questionable facial droop. Came to the ERstroke alertno tPA warranted. Feeling better by the time I see her. Vitals noted, in general she is awake and alert pleasant no distress. HEENT normocephalic atraumatic mucous membranes moist. Breathing unlabored no accessory muscle use good effort. Skin shows no rashes no pallor or icterus. Neuro without focal deficits. MRI brain, CT head and neck, CBC, basic metabolic panel, lipid panel noted. Echocardiogram done results not yet read, troponin noted. TIA versus atypical migrainefortunately symptoms have all resolved. After extensive discussion with patientwhile I favor atypical migraine given the nonspecific symptoms, her frequent migraines, the fact that she has a headache today, and the fact that its resolved in a pattern that otherwise it is coinciding with the pattern of her resolving migrainebecause she is 76 with hypertension and dyslipidemia it is almost impossible to rule out a small vessel TIA. She expresses understanding of this. For now 81 mg aspirin and increase her atorvastatin to 40 mg. Follow clinicallyif this starts to become a clear pattern of her migraines, then it becomes more evident that this was not ce rebrovascular ischemia, and the aspirin/Lipitor can be switched back to her previous regimen. At the same time if over the coming months she shows anything consistent with vascular disease, then obviously maintain. As it relates to her migraines in particular, we discussed the possibility of switching one of her antihypertensives to something like verapamil or propanolol that could have a prophylactic effectbut she would like to understandably discuss further with her PCP and make changes more slowly (which I also agree with given that we were increasing the statin and adding an aspirin now). Safe/stable for home. Otherwise as above. Resident Activity Tracking Resident Involvement: Resident Care Provided Care Provided: Adult Hospital Medicine
--- NOTE | 2022-07-29 17:40 | XCELERA ---
[id number]
--- NOTE | 2022-07-29 17:44 | Billing Data ---
Date of Service July 29, 2022 Coding Level of Care Code 37117 INT INP/OBS CARE
--- NOTE | 2022-07-29 17:44 | Billing Data ---
Date of Service July 29, 2022 Coding Level of Care Code 62206 IN/OBS DISCH 30 MIN/LESS
[2022-07-29] MEDS ORDERED: ATORVASTATIN 40 MG TAB PO SCH (21:00)
[2022-07-29] MEDS ORDERED: ATORVASTATIN 20 MG TAB PO SCH (21:00)
[2022-07-30] MEDS ORDERED: FLUTICASONE PROPIONATE NA SPR 16 GM BTL SCH (09:00)
[2022-07-30] MEDS ORDERED: FLUTICASONE FUROATE 200MCG 14 PUFFS/INHALER INH SCH (09:00)
[2022-07-30] MEDS ORDERED: ASPIRIN 81 MG ECTAB PO SCH (09:00)
--- NOTE | 2022-07-31 05:31 | Electrocardiogram Report ---
Test Reason : Blood Pressure : / mmHG Vent. Rate : 088 BPM Atrial Rate : 088 BPM P-R Int : 134 ms QRS Dur : 072 ms QT Int : 376 ms P-R-T Axes : 056 011 021 degrees QTc Int : 454 ms Sinus rhythm with occasional Premature ventricular complexes Possible Left atrial enlargement Nonspecific ST abnormality Abnormal ECG When compared with ECG of 15-JUL-2020 17:38, Premature ventricular complexes are now Present Criteria for Septal infarct are no longer Present Confirmed by Dominguez Christopher ([id number]) on 07/31/2022 5:31:40 AM Referred By: Confirmed By:Dominguez Christopher
== END 2022-07-29 16:11 | disposition home or self-care (01) ==
LOC: ED 06:19 → EDINP 06:19 → 4W 15:17 → EDINP 17:59

== ENCOUNTER 2023-09-01 12:15 | Inpatient (IN) ==
[2023-09-01] MEDS: METOPROLOL TARTRATE 1 MG/ML VIAL IV STA ×3 (12:53→13:35)
[2023-09-01 13:12] LABS: Basophils # (auto) 0.06 K/uL (0.00-0.20); Basophils % (auto) 0.7 %; Eosinophils # (auto) 0.16 K/uL (0.00-0.50); Eosinophils % (auto) 1.7 %; Hemoglobin 14.2 g/dl (12.0-16.0); Immature Granulocytes # (auto) 0.02 K/uL (0.01-0.20); Immature Granulocytes % (auto) 0.2 %; Lymphocytes # (auto) 2.45 K/uL (1.20-3.40); Lymphocytes % (auto) 26.6 %; Mean Corpuscular Hemoglobin 28.5 pg (25.0-34.0); Mean Corpuscular Hgb Conc 32.3 g/dL (32.0-36.0); Mean Corpuscular Volume 88.4 fL (80.0-100.0); Mean Platelet Volume 12.3 fL (9.4-12.4); Monocytes # (auto) 0.84 K/uL (0.11-0.59); Monocytes % (auto) 9.1 %; Neutrophils # (auto) 5.68 K/uL (1.40-6.50); Neutrophils % (auto) 61.7 %; Platelet Count 217 K/uL (130-400); RDW Coefficient of Variation 13.9 % (11.5-14.5); RDW Standard Deviation 44.6 fL (36.4-46.3); Red Blood Count 4.98 M/uL (4.20-5.40); White Blood Count 9.21 K/ul (4.8-10.8)
[2023-09-01 13:20] LABS: Albumin Globulin Ratio 1.8 (0.9-2); Albumin Level 4.4 gm/dl (3.4-5.0); BUN Creatinine Ratio 9.9 (10-20); Bilirubin,Total 1.2 mg/dl (0.2-1.0); Calcium 9.6 mg/dl (8.6-10.3); Creatinine Clr Calc Pharmacy 60.4 ml/min; Est GFR (African American) 81.8 ml/min; Est GFR (Non-African American) 70.5 ml/min; Globulin 2.5 gm/dl (2.5-4.0); Magnesium 1.9 mg/dl (1.7-2.4); Total Protein 6.9 gm/dl (6.0-8.3)
--- NOTE | 2023-09-01 13:32 | XRay Report ---
SINGLE VIEW CHEST CLINICAL HISTORY: Atypical chest pain FINDINGS: An AP, portable, upright chest radiograph is compared to study dated 01/21/2019 and correla jf with chest CT dated 09/24/2015. The heart is enlarged noting atherosclerotic calcification of the t horacic aorta. There is evidence of congestive failure and pulmonary edema. There are small pleural e ffusions with dependent consolidation. No pneumothorax is seen. The skeletal structures are osteopeni c. The bony thorax is grossly intact. IMPRESSION: 1. Cardiomegaly with evidence of congestive failure and pulmonary edema. Radiographic follow-up to re solution is recommended. 2. Small pleural effusions with dependent consolidation. ACT 112: Negative or not required by law. Electronically signed by: Cornelio Martines M.D. 09/01/2023 1:30 PM
[2023-09-01 13:35] LABS: Partial Thromboplastin Ratio 0.9; Partial Thromboplastin Time 24 Seconds (21-31); Prothrombin Time 10.9 Seconds (9.0-12.0)
[2023-09-01 13:36] LABS: Thyroid Stimulating Hormone 1.629 uIu/ml (0.300-4.500)
--- NOTE | 2023-09-01 13:51 | Emergency Department Note ---
Impression & Plan Atrial fibrillation with rapid ventricular response, Hypoxia, Pulmonary edema ED Provider Note Provider: Pepe Fonseca MD DATE OF SERVICE: 09/01/2023 CHIEF COMPLAINT: Referred, cough, A-fib HISTORY OF PRESENT ILLNESS: Patient is a 78-year-old female history of hypertension, asthma, arthritis presenting here today reporting referred from her primary doctor's office that she had 3 days of cough and cold symptoms found to be a new onset A-fib. Family history but no personal history of A-fib in the past reported. Little bit of chest tightness or pressure and feeling bit of a dry cough. No fevers or significant chills reported. No significant abdominal pain or vomiting. Maybe some slight nausea and decreased appetite with time. Use of Mucinex but cough is worse at night and keeping her up. No significant caffeine use was reported. No significant leg swelling. Does confirm an allergy diltiazem. Negative COVID test in the office. No significant travel or sick contacts reported. PAST MEDICAL HISTORY: As noted above MEDICATIONS: Reviewed on medications SOCIAL HISTORY: Distant former smoker PHYSICAL EXAM: GENERAL: alert and oriented in no acute distress on stretcher Head: normocephalic and atraumatic EYES: No injection, discharge or icterus. NECK: Trachea midline. ENT: Mucous membranes pink and moist. LUNGS: Airway patent. No retractions or tachypnea HEART: Tachycardic irregular regular rate and rhythm. No chest wall tenderness ABDOMEN: Soft and non-tender, without guarding or rebound. SKIN: Acyanotic, warm, dry, without rashes EXTREMITIES: Without swelling, tenderness or deformity NEUROLOGICAL: No focal deficits. No aphasia. No facial droop or slurred speech. Ambulatory. EK beats per and A-fib rapid ventricular response without acute ST segment elevation or nonspecific T wave changes and QTc of 468. EK bpm persistent rapid A-fib without acute ST segment elevation. CONTINUOUS CARDIAC MONITORING: was ordered and showed a heart rate of 100s-160s bpm atrial fibrillation Patient's laboratory studies and imaging reviewed. Differential includes Infection, dehydration, metabolic abnormality, hypo/hyperglycemia, electrolyte disturbance, anemia, hypoxia, cardiac sources, intracerebral event, toxicologic, neurologic, as well as other pathologies. IMPRESSION/MEDICAL DECISION MAKING: Patient in no obvious distress. Rapid heart rate new onset A-fib. Given 3 doses of IV metoprolol for rate control as she is allergic diltiazem. Some improvement of heart rate. Persistent pulm edema and fluid overload on the x- ray although not significant swelling in the legs. Slight oxygen supplementation. Will defer to hospitalist team anticoagulation. Troponin not elevated no evidence of thyroid dysfunction or severe electrolyte abnormality. COVID respiratory viral panel testing negative. Repeat EKG shows improving rate but still in A-fib. Patient agreeable to stay given her new onset A-fib with oxygen requirement and hospitalist will evaluate. DIAGNOSIS: New onset rapid A-fib, pulmonary edema/hypoxia DISPOSITION: Hospitalist will evaluate Patient was agreeable with this plan. Critical Care I have personally spent 35 minutes of critical care time in the direct management of this patient. This includes bedside care, interpretation of diagnostic studies, and testing, discussion with consultants, patient, and other required patient management activities. These 35 minutes is in excess of all separately billable procedures. Past Med/Surg History Problem List (Updated 09/01/23 @ 16:00 by Jacob Banks MD) Heart failure with acute decompensation, type unknown Pulmonary edema (Acute) Hypoxia (Acute) Atrial fibrillation with rapid ventricular response (Acute) Degenerative joint disease, foot, left Hypertension (Acute) Asthma (Acute) History of colon polyps Acoustic neuroma (Chronic) Multiple environmental allergies Cough Palpitations Right knee DJD Encounter for Medicare annual wellness exam Insomnia (Chronic) Allergic rhinitis due to pollen (Chronic) Allergic rhinitis due to dust (Chronic) Primary hypertension Extrinsic asthma (Chronic) inhaler daily and prn Gastroesophageal reflux disease (Chronic) Hypercholesterolemia (Chronic) Migraine headache (Chronic) Obstructive sleep apnea syndrome in adult (Chronic) cpap Anxiety (Chronic) Osteoarthritis Hearing deficit [facility] [place] Medical History (Updated 09/01/23 @ 16:00 by Jacob Banks MD) Ambulatory dysfunction Stroke-like symptoms Hallux rigidus of right foot Medial meniscus tear TIA (transient ischemic attack) 1975 due to OCPs Tubular adenoma of colon Surgical History History of laparoscopic appendectomy History of cataract surgery S/P excision of acoustic neuroma History of bunionectomy History of esophagogastroduodenoscopy (EGD) History of colonoscopy History of tubal ligation History of hysterectomy, supracervical H/O Mohs micrographic surgery for skin cancer H/O repair of rotator cuff History of cholecystectomy Family History Mother Breast cancer Father Prostate cancer Grandmother (Paternal) Family history of diabetes mellitus Other No family history of adverse response to anesthesia Denies family history of Ovarian cancer Myocardial infarction Colorectal cancer Social History Smoking Status: Former smoker Tobacco Type: Cigarettes Second Hand Exposure: No; Do You Dip or Chew Tobacco: No; Hx Alcohol Use: Yes Alcohol type: wine Hx Substance Use: No Preferred Language: Turkmen Communication Ability: Effective Managing Cognitive Engineer Required: No Beliefs That Will Affect Care: Moravian marital status: Current Living Situation: Significant Other current occupational status: retired Feels Safe at Home: Yes Childhood Exposure to Second-Hand Smoke: Yes Dental Care, Regularly: Yes Physical Activity Frequency: 5-6 Times per Week Seatbelt Use: always Sunscreen Use: Yes Assistive Devices: CPAP, Denture - Lower, Glasses and Hearing Aid - Bilateral Allergies Allergies Allergy/AdvReac Type Severity Reaction Status Date / Time meloxicam Allergy Severe GI BLEED Verified 09/01/23 11:19 animal dander Allergy Intermediate Cough Verified 09/01/23 11:19 grass pollen Allergy Intermediate Cough Verified 09/01/23 11:19 mold Allergy Intermediate Cough Verified 09/01/23 11:19 diltiazem Allergy Mild Rash Verified 09/01/23 11:19 Home Meds Home Medications Medication Instructions Recorded Confirmed biotin 5 mg capsule 5 mg PO HS 08/13/18 09/01/23 calcium carbonate (Calcium 600) 600 mg PO BID 08/13/18 09/01/23 inhalational spacing device #1 ea 08/13/18 09/01/23 (Vortex Holding Chamber) multivitamin 1 tab PO QAM 08/13/18 09/01/23 oxygen-air delivery systems ##1 08/13/18 09/01/23 ammonium lactate 12 % lotion 1 applic topical DIRECTED PRN 05/29/20 09/01/23 DRY SKIN IN WINTER aspirin 81 mg tablet,delayed 81 mg PO HS 09/01/23 09/01/23 release ciclesonide 160 mcg/actuation 2 puff inhalation BID 09/01/23 09/01/23 aerosol inhaler (Alvesco) famotidine 40 mg tablet 40 mg PO BID 09/01/23 09/01/23 Previous Rx's Medication Instructions Recorded sumatriptan succinate 50 mg tablet See Rx Instructions PO .COMPLEX 09/15/21 #30 tabs albuterol sulfate 90 mcg/actuation 2 puff inhalation Q4H PRN 11/14/21 aerosol inhaler (ProAir HFA) Shortness Of Breath #3 Inhalers atorvastatin 40 mg tablet 40 mg PO DAILY #90 tabs 01/20/23 mometasone 50 mcg/actuation nasal 2 spray intranasal BID #3 BTLS 03/12/23 spray olmesartan 20 mg tablet 10 mg (1/2 x 20 mg) PO DAILY #45 05/05/23 tabs tiotropium bromide 2.5 2 puff inhalation DAILY 90 days #3 06/18/23 mcg/actuation mist for inhalation Inhalers (Spiriva Respimat) [id number]-caffeine 30 1 cap PO DAILY PRN migraine 06/23/23 mg-50 mg-325 mg-40 mg capsule headache #10 caps zolpidem 12.5 mg tablet,extended 12.5 mg PO HS PRN insomnia #10 tabs 08/09/23 release,multiphase Results & Data (ED) Vital Signs Vital Signs - 24 hr 09/01/23 12:24 09/01/23 12:43 09/01/23 12:53 Temperature 36.7 C Temperature Source Oral Pulse Rate 95 H 150 H Pulse Rate [Finger] Pulse Rate from SpO2 Sensor Pulse Rhythm Regular Pulse Strength Normal Respiratory Rate 20 Respiratory Effort / Characteristics Non-Labored Spontaneous Respiratory Depth Normal Respiratory Pattern Blood Pressure 147/89 H 152/123 H 131/109 H Blood Pressure [Right Arm] Blood Pressure Mean 108 130 Blood Pressure Mean [Right Arm] Blood Pressure Position Sitting Blood Pressure Position [Right Arm] Pulse Oximetry 96 Oxygen Delivery Method Room Air Oxygen Flow Rate Sepsis Recent Fever Within 48 Hours No Sepsis New/Unexplained Change in Mental Status N/A Sepsis Action Taken by Nursing No Action Required Oxygen Flow Rate - Titration Pulse Oximetry Post Tiitration 09/01/23 12:55 09/01/23 13:00 09/01/23 13:00 Temperature Temperature Source Pulse Rate 133 H Pulse Rate [Finger] Pulse Rate from SpO2 Sensor Pulse Rhythm Pulse Strength Respiratory Rate 16 Respiratory Effort / Characteristics Respiratory Depth Respiratory Pattern Blood Pressure 131/105 H Blood Pressure [Right Arm] Blood Pressure Mean 108 Blood Pressure Mean [Right Arm] Blood Pressure Position Blood Pressure Position [Right Arm] Pulse Oximetry 87 L 94 Oxygen Delivery Method Room Air Nasal Cannula Oxygen Flow Rate 2 Sepsis Recent Fever Within 48 Hours Sepsis New/Unexplained Change in Mental Status Sepsis Action Taken by Nursing Oxygen Flow Rate - Titration 2 Pulse Oximetry Post Tiitration 94 09/01/23 13:08 09/01/23 13:08 09/01/23 13:09 Temperature Temperature Source Pulse Rate 120 H 119 H Pulse Rate [Finger] Pulse Rate from SpO2 Sensor 124 H Pulse Rhythm Pulse Strength Respiratory Rate 16 Respiratory Effort / Characteristics Respiratory Depth Respiratory Pattern Blood Pressure 114/86 114/86 Blood Pressure [Right Arm] Blood Pressure Mean 89 Blood Pressure Mean [Right Arm] Blood Pressure Position Blood Pressure Position [Right Arm] Pulse Oximetry 94 Oxygen Delivery Method Nasal Cannula Oxygen Flow Rate 2 Sepsis Recent Fever Within 48 Hours Sepsis New/Unexplained Change in Mental Status Sepsis Action Taken by Nursing Oxygen Flow Rate - Titration Pulse Oximetry Post Tiitration 09/01/23 13:11 09/01/23 13:22 09/01/23 13:24 Temperature Temperature Source Pulse Rate 128 H 125 H Pulse Rate [Finger] Pulse Rate from SpO2 Sensor 120 H Pulse Rhythm Pulse Strength Respiratory Rate 16 Respiratory Effort / Characteristics Respiratory Depth Respiratory Pattern Blood Pressure 114/86 125/93 Blood Pressure [Right Arm] Blood Pressure Mean 101 Blood Pressure Mean [Right Arm] Blood Pressure Position Blood Pressure Position [Right Arm] Pulse Oximetry 93 Oxygen Delivery Method Nasal Cannula Oxygen Flow Rate 2 Sepsis Recent Fever Within 48 Hours Sepsis New/Unexplained Change in Mental Status Sepsis Action Taken by Nursing Oxygen Flow Rate - Titration Pulse Oximetry Post Tiitration 09/01/23 13:30 09/01/23 13:30 09/01/23 13:35 Temperature Temperature Source Pulse Rate 118 H 115 H Pulse Rate [Finger] Pulse Rate from SpO2 Sensor Pulse Rhythm Pulse Strength Respiratory Rate Respiratory Effort / Characteristics Respiratory Depth Respiratory Pattern Blood Pressure 110/86 110/86 122/93 Blood Pressure [Right Arm] Blood Pressure Mean 95 Blood Pressure Mean [Right Arm] Blood Pressure Position Blood Pressure Position [Right Arm] Pulse Oximetry Oxygen Delivery Method Oxygen Flow Rate Sepsis Recent Fever Within 48 Hours Sepsis New/Unexplained Change in Mental Status Sepsis Action Taken by Nursing Oxygen Flow Rate - Titration Pulse Oximetry Post Tiitration 09/01/23 13:35 09/01/23 13:36 09/01/23 13:45 Temperature Temperature Source Pulse Rate 115 H Pulse Rate [Finger] Pulse Rate from SpO2 Sensor 116 H Pulse Rhythm Pulse Strength Respiratory Rate 15 Respiratory Effort / Characteristics Respiratory Depth Respiratory Pattern Blood Pressure 122/93 95/63 L Blood Pressure [Right Arm] Blood Pressure Mean 98 73 Blood Pressure Mean [Right Arm] Blood Pressure Position Blood Pressure Position [Right Arm] Pulse Oximetry 92 Oxygen Delivery Method Nasal Cannula Oxygen Flow Rate 2 Sepsis Recent Fever Within 48 Hours Sepsis New/Unexplained Change in Mental Status Sepsis Action Taken by Nursing Oxygen Flow Rate - Titration Pulse Oximetry Post Tiitration 09/01/23 13:45 09/01/23 14:11 09/01/23 14:15 Temperature Temperature Source Pulse Rate 117 H 109 H 114 H Pulse Rate [Finger] Pulse Rate from SpO2 Sensor 119 H 120 H Pulse Rhythm Pulse Strength Respiratory Rate 16 32 H Respiratory Effort / Characteristics Respiratory Depth Respiratory Pattern Blood Pressure Blood Pressure [Right Arm] Blood Pressure Mean Blood Pressure Mean [Right Arm] Blood Pressure Position Blood Pressure Position [Right Arm] Pulse Oximetry 93 93 Oxygen Delivery Method Nasal Cannula Oxygen Flow Rate 2 Sepsis Recent Fever Within 48 Hours Sepsis New/Unexplained Change in Mental Status Sepsis Action Taken by Nursing Oxygen Flow Rate - Titration Pulse Oximetry Post Tiitration 09/01/23 14:18 09/01/23 14:23 09/01/23 14:23 Temperature Temperature Source Pulse Rate 115 H 118 H Pulse Rate [Finger] Pulse Rate from SpO2 Sensor 132 H Pulse Rhythm Pulse Strength Respiratory Rate 21 Respiratory Effort / Characteristics Respiratory Depth Respiratory Pattern Blood Pressure 120/94 120/94 Blood Pressure [Right Arm] Blood Pressure Mean 107 Blood Pressure Mean [Right Arm] Blood Pressure Position Blood Pressure Position [Right Arm] Pulse Oximetry 91 Oxygen Delivery Method Oxygen Flow Rate Sepsis Recent Fever Within 48 Hours Sepsis New/Unexplained Change in Mental Status Sepsis Action Taken by Nursing Oxygen Flow Rate - Titration Pulse Oximetry Post Tiitration 09/01/23 14:23 09/01/23 14:30 09/01/23 15:18 Temperature Temperature Source Pulse Rate 121 H Pulse Rate [Finger] 113 H Pulse Rate from SpO2 Sensor 120 H Pulse Rhythm Pulse Strength Respiratory Rate 18 10 L Respiratory Effort / Characteristics Non-Labored Respiratory Depth Normal Respiratory Pattern Regular Blood Pressure 129/104 H Blood Pressure [Right Arm] 120/94 Blood Pressure Mean 107 Blood Pressure Mean [Right Arm] 102 Blood Pressure Position Blood Pressure Position [Right Arm] Lying Pulse Oximetry 94 92 Oxygen Delivery Method Nasal Cannula Oxygen Flow Rate 2 Sepsis Recent Fever Within 48 Hours Sepsis New/Unexplained Change in Mental Status Sepsis Action Taken by Nursing Oxygen Flow Rate - Titration Pulse Oximetry Post Tiitration 09/01/23 15:18 09/01/23 15:45 09/01/23 15:57 Temperature Temperature Source Pulse Rate 111 H 118 H 117 H Pulse Rate [Finger] Pulse Rate from SpO2 Sensor 125 H 125 H 110 H Pulse Rhythm Pulse Strength Respiratory Rate 24 20 19 Respiratory Effort / Characteristics Respiratory Depth Respiratory Pattern Blood Pressure Blood Pressure [Right Arm] Blood Pressure Mean Blood Pressure Mean [Right Arm] Blood Pressure Position Blood Pressure Position [Right Arm] Pulse Oximetry 93 92 94 Oxygen Delivery Method Oxygen Flow Rate 2 2 2 Sepsis Recent Fever Within 48 Hours Sepsis New/Unexplained Change in Mental Status Sepsis Action Taken by Nursing Oxygen Flow Rate - Titration Pulse Oximetry Post Tiitration 09/01/23 16:00 09/01/23 16:27 09/01/23 16:30 Temperature Temperature Source Pulse Rate 106 H 107 H Pulse Rate [Finger] Pulse Rate from SpO2 Sensor 110 H 106 H Pulse Rhythm Pulse Strength Respiratory Rate 22 21 Respiratory Effort / Characteristics Respiratory Depth Respiratory Pattern Blood Pressure 112/79 Blood Pressure [Right Arm] Blood Pressure Mean 85 Blood Pressure Mean [Right Arm] Blood Pressure Position Blood Pressure Position [Right Arm] Pulse Oximetry 93 94 Oxygen Delivery Method Oxygen Flow Rate Sepsis Recent Fever Within 48 Hours Sepsis New/Unexplained Change in Mental Status Sepsis Action Taken by Nursing Oxygen Flow Rate - Titration Pulse Oximetry Post Tiitration 09/01/23 16:30 Temperature Temperature Source Pulse Rate Pulse Rate [Finger] Pulse Rate from SpO2 Sensor Pulse Rhythm Pulse Strength Respiratory Rate Respiratory Effort / Characteristics Respiratory Depth Respiratory Pattern Blood Pressure 117/83 Blood Pressure [Right Arm] Blood Pressure Mean 93 Blood Pressure Mean [Right Arm] Blood Pressure Position Blood Pressure Position [Right Arm] Pulse Oximetry Oxygen Delivery Method Oxygen Flow Rate Sepsis Recent Fever Within 48 Hours Sepsis New/Unexplained Change in Mental Status Sepsis Action Taken by Nursing Oxygen Flow Rate - Titration Pulse Oximetry Post Tiitration Laboratory Data 09/01/23 12:45 09/01/23 12:45 Lab Results 09/01/23 09/01/23 Range/Units 12:45 12:47 WBC 9.21 (4.8-10.8) K/ul RBC 4.98 (4.20-5.40) M/uL Hgb 14.2 (12.0-16.0) g/dl Hct 44.0 (37.0-47.0) % MCV 88.4 (80.0-100.0) fL MCH 28.5 (25.0-34.0) pg MCHC 32.3 (32.0-36.0) g/dL RDW Std Deviation 44.6 (36.4-46.3) fL RDW Coeff of Dinesh 13.9 (11.5-14.5) % Plt Count 217 (130-400) K/uL MPV 12.3 (9.4-12.4) fL Immature Gran % (Auto) 0.2 % Neut % (Auto) 61.7 % Lymph % (Auto) 26.6 % [place] % (Auto) 9.1 % Eos % (Auto) 1.7 % Baso % (Auto) 0.7 % Neut # (Auto) 5.68 (1.40-6.50) K/uL Lymph # (Auto) 2.45 (1.20-3.40) K/uL [place] # (Auto) 0.84 H (0.11-0.59) K/uL Eos # (Auto) 0.16 (0.00-0.50) K/uL Baso # (Auto) 0.06 (0.00-0.20) K/uL Immature Gran # (Auto) 0.02 (0.01-0.20) K/uL PT 10.9 (9.0-12.0) Seconds INR 1.0 (0.9-1.1) APTT 24 (21-31) Seconds PTT Ratio 0.9 Sodium 140 (136-145) mmol/L Potassium 4.0 (3.5-5.1) mmol/L Chloride 109 H (98-107) mmol/L Carbon Dioxide 24 (21-32) mmol/L Anion Gap 7 (3-11) BUN 8 (6-23) mg/dl Creatinine 0.81 (0.6-1.2) mg/dl Est Cr Clr Drug Dosing 60.4 ml/min Est GFR ( Amer) 81.8 ml/min Est GFR (Non-Af Amer) 70.5 ml/min BUN/Creatinine Ratio 9.9 L (10-20) Glucose 107 H (70-99(Fasting)) mg/dl Calcium 9.6 (8.6-10.3) mg/dl Magnesium 1.9 (1.7-2.4) mg/dl Total Bilirubin 1.2 H (0.2-1.0) mg/dl AST 33 (13-39) U/L ALT 32 (7-52) U/L Alkaline Phosphatase 86 (34-104) U/L Troponin I High Sens 8.0 (0-14) pg/ml Total Protein 6.9 (6.0-8.3) gm/dl Albumin 4.4 (3.4-5.0) gm/dl Globulin 2.5 (2.5-4.0) gm/dl Albumin/Globulin Ratio 1.8 (0.9-2) TSH 1.629 (0.300-4.500) uIu/ml Adenovirus (PCR) Not Detected (NotDetected) B. pertussis DNA (PCR) Not Detected (NotDetected) B.parapertussis DNA PCR Not Detected (NotDetected) C. pneumoniae DNA (PCR) Not Detected (NotDetected) Coronavirus OC43 (PCR) Not Detected (NotDetected) Coronavirus HKU1 (PCR) Not Detected (NotDetected) Coronavirus 229E (PCR) Not Detected (NotDetected) SARS-CoV-2 (PCR) Not Detected (NotDetected) Coronavirus NL63 (PCR) Not Detected (NotDetected) Human Metapneumovir PCR Not Detected (NotDetected) Influenza Type A (PCR) Not Detected (NotDetected) Influenza Type B (PCR) Not Detected (NotDetected) M. pneumoniae (PCR) Not Detected (NotDetected) Parainfluenza 1 (PCR) Not Detected (NotDetected) Parainfluenza 2 (PCR) Not Detected (NotDetected) Parainfluenza 3 (PCR) Not Detected (NotDetected) Parainfluenza 4 (PCR) Not Detected (NotDetected) RSV (PCR) Not Detected (NotDetected) Entero/Rhino (PCR) Not Detected (NotDetected) Administered Medications Discontinued Medications Furosemide (Furosemide Inj 20 Mg/2 Ml Vial) 20 mg IV ONE ONE Stop: 09/01/23 13:51 Last Admin: 09/01/23 14:24 Dose: 20 mg Documented By: ELVIN Magnesium Sulfate/Dextrose (Magnesium Sulfate / D5w) 1 gm in 100 mls @ 100 mls/hr IV NOW STA Stop: 09/01/23 15:49 Last Admin: 09/01/23 15:19 Dose: 100 mls/hr Documented By: RICHARD Metoprolol Tartrate (Metoprolol Tartrate 1 Mg/Ml Vial) 5 mg IV NOW STA Stop: 09/01/23 12:48 Last Admin: 09/01/23 12:53 Dose: 5 mg Documented By: JESUS Metoprolol Tartrate (Metoprolol Tartrate 1 Mg/Ml Vial) 5 mg IV NOW STA Stop: 09/01/23 12:59 Last Admin: 09/01/23 13:11 Dose: 5 mg Documented By: JESUS Metoprolol Tartrate (Metoprolol Tartrate 1 Mg/Ml Vial) 5 mg IV NOW STA Stop: 09/01/23 13:23 Last Admin: 09/01/23 13:35 Dose: 5 mg Documented By: JESUS Metoprolol Tartrate (Metoprolol Tartrate 25 Mg Tab) 25 mg PO ONE STA Stop: 09/01/23 15:00 Last Admin: 09/01/23 15:18 Dose: 25 mg Documented By: RICHARD Imaging Data Radiologist's Impression: Chest X-Ray 09/01/23 12:28 SINGLE VIEW CHEST CLINICAL HISTORY: Atypical chest pain FINDINGS: An AP, portable, upright chest radiograph is compared to study dated 01/21/2019 and correlated with chest CT dated 09/24/2015. The heart is enlarged noting atherosclerotic calcification of the thoracic aorta. There is evidence of congestive failure and pulmonary edema. There are small pleural effusions with dependent consolidation. No pneumothorax is seen. The skeletal structures are osteopenic. The bony thorax is grossly intact. IMPRESSION: 1. Cardiomegaly with evidence of congestive failure and pulmonary edema. Radiographic follow-up to resolution is recommended. 2. Small pleural effusions with dependent consolidation. ACT 112: Negative or not required by law. Electronically signed by: Cornelio Martines M.D. 09/01/2023 1:30 PM Discharge Plan Visit Data Chief Complaint: Cardiac Assessment Stated Complaint: ABN EKG ED Provider: Pepe Fonseca Discharge Problem: Atrial fibrillation with rapid ventricular response, Hypoxia, Pulmonary edema Patient Disposition: Being Evaluated by Hospitalist Discharge Instructions Interventions: ED Discharge Assessment Last Done: 09/01/23 16:32 Forms Stand Alone Forms: My [facility] Prescriptions Prescriptions: No Action atorvastatin 40 mg tablet 40 mg PO DAILY Qty: 90 3RF mometasone 50 mcg/actuation spray,non-aerosol 2 spray INTNAS BID Qty: 3 3RF olmesartan 20 mg tablet 10 mg PO DAILY Qty: 45 3RF Spiriva Respimat 2.5 mcg/actuation mist 2 puff inhalation DAILY 90 Days Qty: 3 3RF [id number]-[id number]-AAJ-caff [id number] mg capsule 1 cap PO DAILY PRN (Reason: migraine headache) Qty: 10 0RF zolpidem 12.5 mg tablet,ext release multiphase 12.5 mg PO HS PRN (Reason: insomnia) Qty: 10 0RF biotin 5 mg capsule 5 mg PO HS calcium carbonate [Calcium 600] 600 mg calcium (1,500 mg) tablet 600 mg PO BID multivitamin tablet 1 tab PO QAM (DME) oxygen-air delivery systems device See Dose Instructions .ROUTE .MEDSUPPLY Qty: 1 Rx Instructions: 7 cm of water Qhs. (DME) Vortex Holding Chamber spacer See Dose Instructions .ROUTE .MEDSUPPLY Qty: 1 Rx Instructions: Use with inhaler. albuterol sulfate [ProAir HFA] 90 mcg/actuation HFA aerosol inhaler 2 puff INH Q4H PRN (Reason: Shortness Of Breath) Qty: 3 3RF sumatriptan succinate 50 mg tablet See Rx Instructions PO .COMPLEX Qty: 30 3RF Rx Instructions: take 1 tab at onset of headache; if no relief may repeat 1 tab after at least 2 hrs; max = 4 tabs/24 hr PO ammonium lactate 12 % lotion 1 applic TOPICAL DIRECTED PRN (Reason: DRY SKIN IN WINTER) aspirin 81 mg Tablet,Delayed Release (Dr/Ec) 81 mg PO HS famotidine 40 mg tablet 40 mg PO BID Rx Instructions: TAKE 1 TABLET TWICE A DAY Alvesco 160 mcg/actuation HFA aerosol inhaler 2 puff inhalation BID Rx Instructions: 2 PUFFS BID Referrals Referrals: Ainsley Graves MD [Primary Care Provider] -
[2023-09-01 14:10] LABS: Adenovirus PCR Not Detected (NotDetected); Bordetella parapertussis PCR Not Detected (NotDetected); Bordetella pertussis PCR Not Detected (NotDetected); Chlamydia pneumoniae PCR Not Detected (NotDetected); Coronavirus 229E PCR Not Detected (NotDetected); Coronavirus CoV-2 (COVID19)PCR Not Detected (NotDetected); Coronavirus HKU1 PCR Not Detected (NotDetected); Coronavirus NL63 PCR Not Detected (NotDetected); Coronavirus OC43PCR Not Detected (NotDetected); Human Metapneumovirus PCR Not Detected (NotDetected); Influenza A PCR Not Detected (NotDetected); Influenza B PCR Not Detected (NotDetected); Mycoplasma pneumoniae PCR Not Detected (NotDetected); Parainfluenza Virus 1 PCR Not Detected (NotDetected); Parainfluenza Virus 2 PCR Not Detected (NotDetected); Parainfluenza Virus 3 PCR Not Detected (NotDetected); Parainfluenza Virus 4 PCR Not Detected (NotDetected); Respiratory Syncytial VirusPCR Not Detected (NotDetected); Rhinovirus/Enterovirus PCR Not Detected (NotDetected)
[2023-09-01] MEDS: FUROSEMIDE INJ 20 MG/2 ML VIAL IV ONE (14:24)
[2023-09-01] MEDS: METOPROLOL TARTRATE 25 MG TAB PO STA (15:18)
[2023-09-01] MEDS: MAGNESIUM SULFATE / D5W 1 GM/100 ML BAG IV STA (15:19)
--- NOTE | 2023-09-01 15:30 | History & Physical Report ---
Date of Service September 01, 2023 Assessment & Plan (1) Atrial fibrillation with rapid ventricular response: Plan: New onset Possibly flutter waves on repeat EKG although telemetry reveals more of a fibrillation rhythm [id number] - 7, history of GI bleed while on meloxicam only, start anticoagulation with Eliquis 5mg PO BID Rate much better controlled after metoprolol 5mg IV x3 given in the ER, start metoprolol tartrate 25mg PO q6h with hold parameters TTE TSH normal Consult cardiology for ongoing management (2) Heart failure with acute decompensation, type unknown: Plan: Lasix 20 mg IV BID Strict I&Os, daily weights Low Na diet TTE (3) Gastroesophageal reflux disease: Plan: Continue famotidine History of GI bleed on NSAIDs - monitor for symptoms on Eliquis, avoid NSAIDs Plan Otherwise continue routine medications VTE Prophylaxis - Eliquis Diet - Low Na Disposition - admit to PCU Admission and Anticipated Discharge Date Admission Date: September 01, 2023 History of Present Illness Chief Complaint: Shortness of breath, cough Primary Care Provider: Ainsley Graves MD Emily Kenny is a 78 year old female who presents to the ER with shortness of breath, chest pressure, cough and palpitations. Ongoing symptoms since Wednesday progressively getting worse. Denies chest pain just mild constant pressure. Cough is non-productive. No leg swelling. No history of atrial arrhythmias but strong family history of this. No fever or chills. No history of heart failure. Allergies Allergy/AdvReac Type Severity Reaction Status Date / Time meloxicam Allergy Severe GI BLEED Verified 09/01/23 11:19 animal dander Allergy Intermediate Cough Verified 09/01/23 11:19 grass pollen Allergy Intermediate Cough Verified 09/01/23 11:19 mold Allergy Intermediate Cough Verified 09/01/23 11:19 diltiazem Allergy Mild Rash Verified 09/01/23 11:19 Home Medications Medication Instructions Recorded Confirmed Type biotin 5 mg capsule 5 mg PO HS 08/13/18 09/01/23 History calcium carbonate (Calcium 600) 600 mg PO BID 08/13/18 09/01/23 History inhalational spacing device #1 ea 08/13/18 09/01/23 History (Vortex Holding Chamber) multivitamin 1 tab PO QAM 08/13/18 09/01/23 History oxygen-air delivery systems ##1 08/13/18 09/01/23 History ammonium lactate 12 % lotion 1 applic topical DIRECTED PRN 05/29/20 09/01/23 History DRY SKIN IN WINTER sumatriptan succinate 50 mg tablet See Rx Instructions PO .COMPLEX 09/15/21 09/01/23 Rx #30 tabs albuterol sulfate 90 mcg/actuation 2 puff inhalation Q4H PRN 11/14/21 09/01/23 Rx aerosol inhaler (ProAir HFA) Shortness Of Breath #3 Inhalers atorvastatin 40 mg tablet 40 mg PO DAILY #90 tabs 01/20/23 09/01/23 Rx mometasone 50 mcg/actuation nasal 2 spray intranasal BID #3 BTLS 03/12/23 09/01/23 Rx spray olmesartan 20 mg tablet 10 mg (1/2 x 20 mg) PO DAILY #45 05/05/23 09/01/23 Rx tabs tiotropium bromide 2.5 2 puff inhalation DAILY 90 days #3 06/18/23 09/01/23 Rx mcg/actuation mist for inhalation Inhalers (Spiriva Respimat) ctghadc-dtnbcwgeni-RVT-caffeine 30 1 cap PO DAILY PRN migraine 06/23/23 09/01/23 Rx mg-50 mg-325 mg-40 mg capsule headache #10 caps zolpidem 12.5 mg tablet,extended 12.5 mg PO HS PRN insomnia #10 tabs 08/09/23 09/01/23 Rx release,multiphase aspirin 81 mg tablet,delayed 81 mg PO HS 09/01/23 09/01/23 History release ciclesonide 160 mcg/actuation 2 puff inhalation BID 09/01/23 09/01/23 History aerosol inhaler (Alvesco) famotidine 40 mg tablet 40 mg PO BID 09/01/23 09/01/23 History Past Med/Surg History Problem List (Updated 09/01/23 @ 16:00 by Jacob Banks MD) Heart failure with acute decompensation, type unknown Pulmonary edema (Acute) Hypoxia (Acute) Atrial fibrillation with rapid ventricular response (Acute) Degenerative joint disease, foot, left Hypertension (Acute) Asthma (Acute) History of colon polyps Acoustic neuroma (Chronic) Multiple environmental allergies Cough Palpitations Right knee DJD Encounter for Medicare annual wellness exam Insomnia (Chronic) Allergic rhinitis due to pollen (Chronic) Allergic rhinitis due to dust (Chronic) Primary hypertension Extrinsic asthma (Chronic) inhaler daily and prn Gastroesophageal reflux disease (Chronic) Hypercholesterolemia (Chronic) Migraine headache (Chronic) Obstructive sleep apnea syndrome in adult (Chronic) cpap Anxiety (Chronic) Osteoarthritis Hearing deficit [facility] Medical History (Updated 09/01/23 @ 16:00 by Jacob Banks MD) Ambulatory dysfunction Stroke-like symptoms Hallux rigidus of right foot Medial meniscus tear TIA (transient ischemic attack) 1975 due to OCPs Tubular adenoma of colon Surgical History History of laparoscopic appendectomy History of cataract surgery S/P excision of acoustic neuroma History of bunionectomy History of esophagogastroduodenoscopy (EGD) History of colonoscopy History of tubal ligation History of hysterectomy, supracervical H/O Mohs micrographic surgery for skin cancer H/O repair of rotator cuff History of cholecystectomy Family History Mother Breast cancer Father Prostate cancer Grandmother (Paternal) Family history of diabetes mellitus Other No family history of adverse response to anesthesia Denies family history of Ovarian cancer Myocardial infarction Colorectal cancer Social History Smoking Status: Former smoker Tobacco Type: Cigarettes Smoking End Date: 1971; Second Hand Exposure: No; Do You Dip or Chew Tobacco: No; Hx Alcohol Use: Yes Alcohol type: wine Hx Substance Use: No Preferred Language: Kyrgyz Communication Ability: Effective Control Officer Manager Required: No Beliefs That Will Affect Care: None marital status: Current Living Situation: Alone current occupational status: retired Other Information That Helps Us Care for You: No Feels Safe at Home: Yes Safety Concerns: Feels Safe At This Time Childhood Exposure to Second-Hand Smoke: Yes Dental Care, Regularly: Yes Physical Activity Frequency: 5-6 Times per Week Seatbelt Use: always Sunscreen Use: Yes Assistive Devices: Denture - Lower, Glasses and Hearing Aid - Bilateral Review of Systems Review of Systems: All systems reviewed & are unremarkable except as noted in HPI & below Physical Exam Constitutional: WD/WN, vitals as above Eyes: PERRL, conjunctivae normal, anicteric sclerae ENMT: external ear and nose normal, oropharynx normal Respiratory: normal respiratory effort, lungs clear to auscultation Cardiovascular: Rate/Rhythm: + tachycardic and + irregularly irregular Heart Sounds: no murmur Extremities: normal capillary refill; no calf tenderness and no pedal edema Gastrointestinal (Abdomen): normal bowel sounds, soft, nontender, no hepatosplenomegaly Musculoskeletal: no cyanosis or clubbing, extremities motor strength 5/5 Skin: no rashes, warm and dry Neurologic: moves all extremities and awake; not confused Psychiatric: A+Ox3, euthymic affect Genitourinary: no CVA tenderness Results & Data Results & Data Vital Signs (Past 12 Hours) Vital Signs Temp Pulse Pulse Resp BP BP Pulse Ox 09/01/23 14:30 121 H 10 L 92 09/01/23 14:23 113 H 18 120/94 94 09/01/23 14:23 120/94 09/01/23 14:23 118 H 120/94 09/01/23 14:18 115 H 21 91 09/01/23 14:15 114 H 32 H 93 09/01/23 14:11 109 H 09/01/23 13:45 117 H 16 93 09/01/23 13:45 95/63 L 09/01/23 13:36 115 H 15 92 09/01/23 13:35 122/93 09/01/23 13:35 115 H 122/93 09/01/23 13:30 110/86 09/01/23 13:30 118 H 110/86 09/01/23 13:24 125 H 16 93 09/01/23 13:22 125/93 09/01/23 13:11 128 H 114/86 09/01/23 13:09 119 H 16 94 09/01/23 13:08 114/86 09/01/23 13:08 120 H 114/86 09/01/23 13:00 133 H 16 94 09/01/23 13:00 87 L 09/01/23 12:55 131/105 H 09/01/23 12:53 150 H 131/109 H 09/01/23 12:43 152/123 H 09/01/23 12:24 36.7 C 95 H 20 147/89 H 96 O2 Del Method O2 Flow Rate 09/01/23 14:30 09/01/23 14:23 Nasal Cannula 2 09/01/23 14:23 09/01/23 14:23 09/01/23 14:18 09/01/23 14:15 09/01/23 14:11 09/01/23 13:45 Nasal Cannula 2 09/01/23 13:45 09/01/23 13:36 Nasal Cannula 2 09/01/23 13:35 09/01/23 13:35 09/01/23 13:30 09/01/23 13:30 09/01/23 13:24 Nasal Cannula 2 09/01/23 13:22 09/01/23 13:11 09/01/23 13:09 Nasal Cannula 2 09/01/23 13:08 09/01/23 13:08 09/01/23 13:00 Nasal Cannula 2 09/01/23 13:00 Room Air 09/01/23 12:55 09/01/23 12:53 09/01/23 12:43 09/01/23 12:24 Room Air Laboratory Results Abnormal lab results 09/01/23 Range/Units 12:45 Gila # (Auto) 0.84 H (0.11-0.59) K/uL Chloride 109 H (98-107) mmol/L BUN/Creatinine Ratio 9.9 L (10-20) Glucose 107 H (70-99(Fasting)) mg/dl Total Bilirubin 1.2 H (0.2-1.0) mg/dl Diagnostic Findings SINGLE VIEW CHEST CLINICAL HISTORY: Atypical chest pain FINDINGS: An AP, portable, upright chest radiograph is compared to study dated 01/21/2019 and correlated with chest CT dated 09/24/2015. The heart is enlarged noting atherosclerotic calcification of the thoracic aorta. There is evidence of congestive failure and pulmonary edema. There are small pleural effusions with dependent consolidation. No pneumothorax is seen. The skeletal structures are osteopenic. The bony thorax is grossly intact. IMPRESSION: 1. Cardiomegaly with evidence of congestive failure and pulmonary edema. Radiographic follow-up to resolution is recommended. 2. Small pleural effusions with dependent consolidation. Medications Administered ER medications given: Metoprolol 5 mg IV x 3 Furosemide 20 mg IV ECG Rate (beats per minute): 159 Rhythm: atrial fibrillation Findings: + nonspecific-ST abn Comparison ECG Date: from (July 29, 2022) Change: the following changes noted (Atrial fibrillation replaced sinus rhythm) Code Status & VTE Plan Code Status Full VTE Prophylaxis Plan VTE Prophylaxis will be ordered: Yes PG Care Time/CCT Total # of Minutes Spent Total Time Spent with Patient: Total time spent is greater than 50% in coordination of care (as documented) at patient's floor/unit and/or counseling patient: Coding Level of Care Code 86394 INT INP/OBS CARE 3/75MIN Diagnoses Atrial fibrillation with rapid ventricular response I48.91 Heart failure with acute decompensation, type unknown I50.9 Gastroesophageal reflux disease K21.9
[2023-09-01] MEDS: FUROSEMIDE INJ 20 MG/2 ML VIAL IV SCH (17:56)
[2023-09-01] MEDS: APIXABAN 5 MG TABLET PO STA (17:58)
--- NOTE | 2023-09-01 18:33 | Electrocardiogram Report ---
Test Reason : Blood Pressure : / mmHG Vent. Rate : 117 BPM Atrial Rate : 288 BPM P-R Int : 000 ms QRS Dur : 072 ms QT Int : 348 ms P-R-T Axes : 000 034 006 degrees QTc Int : 485 ms Atrial fibrillation Nonspecific ST abnormality Abnormal ECG Confirmed by Augustus Boogie ([id number]) on 09/01/2023 6:33:05 PM Referred By: REFERRED SELF Confirmed By:Lyndon Boogie
[2023-09-01 18:46] LABS: D Dimer 600 ug/L FEU (0-500)
[2023-09-01] MEDS: CALCIUM CARBONATE 1250MG TAB PO SCH (20:25)
[2023-09-01] MEDS: FAMOTIDINE 40 MG TABLET PO SCH (20:25)
[2023-09-01] MEDS: FLUTICASONE PROPIONATE NA SPR 16 GM BTL SCH (20:25)
[2023-09-01] MEDS: METOPROLOL TARTRATE 25 MG TAB PO SCH (20:25)
[2023-09-01] MEDS: ASPIRIN 81 MG ECTAB PO SCH (20:25)
[2023-09-01] MEDS ORDERED: NON-FORMULARY MEDICATION (Biotin 5 mg capsule) PO SCH (21:00)
[2023-09-01] MEDS: ZOLPIDEM TARTRATE 5 MG TAB PO PRN (22:36)
[2023-09-02] MEDS ORDERED: CODEINE SULFATE 30 MG TAB PO STA (04:32)
[2023-09-02] MEDS: CODEINE SULFATE 30 MG TAB PO STA (04:49)
[2023-09-02] MEDS: BUTALBITAL/ASPIRIN/CAFFEINE 1 TAB TAB PO STA (04:49)
--- NOTE | 2023-09-02 06:24 | Communication Note ---
Date of Service: September 01, 2023 Discussed minimally elevated d-dimer with patient. Now off O2 with alternative explanation for her shortness of breath. She will be treated with Eliquis irr egardless and low suspicion of PE despite elevated d-dimer given alternative etiology for her shortness of breath and improvement with rate control. Will defer CT for PE at this time.
[2023-09-02 06:56] LABS: Basophils # (auto) 0.07 K/uL (0.00-0.20); Basophils % (auto) 0.9 %; Eosinophils # (auto) 0.25 K/uL (0.00-0.50); Eosinophils % (auto) 3.2 %; Hematocrit (blood only) 41.4 % (37.0-47.0); Hemoglobin 13.5 g/dl (12.0-16.0); Immature Granulocytes # (auto) 0.01 K/uL (0.01-0.20); Immature Granulocytes % (auto) 0.1 %; Lymphocytes # (auto) 2.83 K/uL (1.20-3.40); Lymphocytes % (auto) 36.4 %; Mean Corpuscular Hemoglobin 28.5 pg (25.0-34.0); Mean Corpuscular Hgb Conc 32.6 g/dL (32.0-36.0); Mean Corpuscular Volume 87.5 fL (80.0-100.0); Mean Platelet Volume 11.7 fL (9.4-12.4); Monocytes # (auto) 0.76 K/uL (0.11-0.59); Monocytes % (auto) 9.8 %; Neutrophils # (auto) 3.86 K/uL (1.40-6.50); Neutrophils % (auto) 49.6 %; Platelet Count 205 K/uL (130-400); RDW Coefficient of Variation 13.6 % (11.5-14.5); RDW Standard Deviation 43.4 fL (36.4-46.3); Red Blood Count 4.73 M/uL (4.20-5.40); White Blood Count 7.78 K/ul (4.8-10.8)
[2023-09-02 07:25] LABS: BUN Creatinine Ratio 15.5 (10-20); Calcium 8.9 mg/dl (8.6-10.3); Creatinine Clr Calc Pharmacy 57.6 ml/min; Est GFR (African American) 78.2 ml/min; Est GFR (Non-African American) 67.5 ml/min; Magnesium 1.9 mg/dl (1.7-2.4); Potassium 3.4 mmol/L (3.5-5.1)
--- NOTE | 2023-09-02 07:44 | Hospitalist Progress Note ---
Date of Service September 02, 2023 Assessment & Plan (1) Atrial fibrillation with rapid ventricular response: Plan: New onset Possibly flutter waves on repeat EKG although telemetry reveals more of a fibrillation rhythm [id number] - 7, history of GI bleed while on meloxicam only, start anticoagulation with Eliquis 5mg PO BID Rate much better controlled after metoprolol 5mg IV x3 given in the ER, start metoprolol tartrate 25mg PO q6h with hold parameters TTE TSH normal, T4/t3 to am labs Consult cardiology for ongoing management 09/01 WBC 7.7k, hgb 13.5 Eliquis 5mg PO BID continued. Is also on ASA 81mg/pepcid 40mg PO BID. Monitor for need for PPI while on aspirin and eliquis. PPI IV x 1 for nausea today but ?related to afib Metoprolol 25mg PO q6h continued, Additional dose metoprolol 25 w/ afternoon 25mg dose for total 50mg and will monitor for need for further increase Rates improved but 120s w/ ambulation and SOB w/ exertion Interestingly patient did note has had fluttering sensation for years, at least two, w/ HR on her fit bit to 120s at times. ?paroxysmal or more permanent unclear but did entertain discussion of holter monitor at that time but deferred. Given longer standing/paroxysmal in nature and elevated ddimer will obtain CTA chest for completeness. Is on eliquis 5mg BID but may need to change dosing if +for PE. No evidence for DVT on exam or prior leg edema ECHO done this morning but not yet read to eval for any RV dilation to be able to consider further holding off such TSH wnl on admit, T4/T3 to AM labs which were normal CXR for today for comparison, mild improvement. Continued monitoring. +cough/d ry/nonproductive Increased lasix to 40mg IV BID for ongoing diuresis (wt 73.1kg--> 71.2kg) -K 3.4 on AM labs, 40meq ordered, will schedule 40meq BID w/ IV lasix BID to prevent hypokalemia w/ afib. -Mag 1.9, 1gm IV ordered to keep closer to 2 Appreciate recs/assistance from cardiology, not yet seen this afternoon per patient. Continued monitoring on telemetry (2) Heart failure with acute decompensation, type unknown: Plan: Lasix 20 mg IV BID increased to 40mg IV BID as above and supplemental potassium Weights 73.1kg --> 71.2kg and continue to monitor weights/I&Os --of note, weight in system last year around this time was ~67kg (73kg on admission, ?closer to 67kg her dry weight) Low Na diet Metoprolol as above for afib/rate control. TSH wnl ECHO/cards consult pending Continued telemetry monitoring (3) Gastroesophageal reflux disease: Plan: Continue famotidine History of GI bleed on NSAIDs - monitor for symptoms on Eliquis, avoid NSAIDs Added protonix IVP for today given reported nausea but no bleeding reported. Monitor CBC in AM/consider switching famotidine to PPI pending any continued issues (4) Hypoxia: Plan: in patient w/ asthma but new onset afib and heart failure *unknown type* at current time Discussed minimally elevated d-dimer with patient. Now off O2 with alternative explanation for her shortness of breath. She will be treated with Eliquis irregardless and low suspicion of PE despite elevated d-dimer given alternative etiology for her shortness of breath and improvement with rate control. CTA deferred on admission however will obtain given her hx as discussed above Monitor ECHO once read and appreciate cards consult/assistance Supplemental O2 as needed -91% on RA presently, diuresis as above for volume overload Plan continued inpatient stay cards consult/echo pending check CTA to r/o PE, continue eliquis 5mg BID for now but increase if + testing lasix 40mg IV BID, scheduled metoprolol w/ additional dose this afternoon Admission and Anticipated Discharge Date Admission Date: September 01, 2023 Supervising Physician Co-Signing Physician Notes The patient was not seen by me. The chart was reviewed. Case discussed with LENORA Stafford. Agree with assessment and plan Subjective Eval this afternoon, feeling better but still SOB w/ activity. Increased lasix this morning and good urine output. Still occ cough, nonproductive. Has some nausea after lunch and ?related to her afib. She reports pressure sensation but no pain w/ inspiration/pleuritic pain but to alert if occurs given elevated Ddimer. Not yet seen by cards, echo done but not yet read. Discussed possible adjustment to her medications pending echo but will attempt diuresis w/ improved rate control for now. She notes she has had fluttering sensation in her chest for at least 2 yrs, had mentioned to PCP as her fitbit telling her HR 120s when usually resting in 60- 70s but decision was to hold off holter monitor at that time however discussed could have been in/out of this rhythm or permanent without significant elevations for a period of time given reported hx. Physical Exam Physical Exam: General: 78yo female sitting up in bed reading a book, NAD but some nausea reported Head atraumatic, normocephalic, mmm, trachea midline, +JVD Resp: even/unlabored but diminished in the bases R>L, no wheezing/rales, on room air CV: irregularly irregular, +systolic murmur, no pitting edema/calf tenderness GI : +BS, soft/NT MSK/Neuro: answering questions appropriately, no facial droop/slurred speech, following commands, not confused Psych: AOx3, cooperative with exam Results & Data Results & Data Vital Signs (Past 12 Hours) Vital Signs Temp Pulse Pulse Resp BP Pulse Ox O2 Del Method 09/02/23 06:54 36.4 C L 94 H 17 116/83 91 Room Air 09/02/23 02:15 36.9 C 104 H 16 110/76 90 Room Air 09/01/23 22:55 116 H 09/01/23 22:10 37.0 C 105 H 19 126/86 92 Room Air Laboratory Results 09/02/23 09/01/23 09/01/23 Range/Units 06:39 17:37 12:47 WBC 7.78 (4.8-10.8) K/ul RBC 4.73 (4.20-5.40) M/uL Hgb 13.5 (12.0-16.0) g/dl Hct 41.4 (37.0-47.0) % MCV 87.5 (80.0-100.0) fL MCH 28.5 (25.0-34.0) pg MCHC 32.6 (32.0-36.0) g/dL RDW Std Deviation 43.4 (36.4-46.3) fL RDW Coeff of Dinesh 13.6 (11.5-14.5) % Plt Count 205 (130-400) K/uL MPV 11.7 (9.4-12.4) fL Immature Gran % (Auto) 0.1 % Neut % (Auto) 49.6 % Lymph % (Auto) 36.4 % Bryan % (Auto) 9.8 % Eos % (Auto) 3.2 % Baso % (Auto) 0.9 % Neut # (Auto) 3.86 (1.40-6.50) K/uL Lymph # (Auto) 2.83 (1.20-3.40) K/uL Bryan # (Auto) 0.76 H (0.11-0.59) K/uL Eos # (Auto) 0.25 (0.00-0.50) K/uL Baso # (Auto) 0.07 (0.00-0.20) K/uL Immature Gran # (Auto) 0.01 (0.01-0.20) K/uL D-Dimer 600 H* (0-500) ug/L FEU Sodium 141 (136-145) mmol/L Potassium 3.4 L (3.5-5.1) mmol/L Chloride 106 (98-107) mmol/L Carbon Dioxide 28 (21-32) mmol/L Anion Gap 7 (3-11) BUN 13 (6-23) mg/dl Creatinine 0.84 (0.6-1.2) mg/dl Est Cr Clr Drug Dosing 57.6 ml/min Est GFR ( Amer) 78.2 ml/min Est GFR (Non-Af Amer) 67.5 ml/min BUN/Creatinine Ratio 15.5 (10-20) Glucose 109 H (70-99(Fasting)) mg/dl Calcium 8.9 (8.6-10.3) mg/dl Magnesium 1.9 (1.7-2.4) mg/dl Free T4 1.31 (0.61-1.60) ng/dl Free T3 (2.3-4.2) pg/ml Adenovirus (PCR) Not Detected (NotDetected) B. pertussis DNA (PCR) Not Detected (NotDetected) B.parapertussis DNA PCR Not Detected (NotDetected) C. pneumoniae DNA (PCR) Not Detected (NotDetected) Coronavirus OC43 (PCR) Not Detected (NotDetected) Coronavirus HKU1 (PCR) Not Detected (NotDetected) Coronavirus 229E (PCR) Not Detected (NotDetected) SARS-CoV-2 (PCR) Not Detected (NotDetected) Coronavirus NL63 (PCR) Not Detected (NotDetected) Human Metapneumovir PCR Not Detected (NotDetected) Influenza Type A (PCR) Not Detected (NotDetected) Influenza Type B (PCR) Not Detected (NotDetected) M. pneumoniae (PCR) Not Detected (NotDetected) Parainfluenza 1 (PCR) Not Detected (NotDetected) Parainfluenza 2 (PCR) Not Detected (NotDetected) Parainfluenza 3 (PCR) Not Detected (NotDetected) Parainfluenza 4 (PCR) Not Detected (NotDetected) RSV (PCR) Not Detected (NotDetected) Entero/Rhino (PCR) Not Detected (NotDetected) 09/01/23 Range/Units 12:45 WBC (4.8-10.8) K/ul RBC (4.20-5.40) M/uL Hgb (12.0-16.0) g/dl Hct (37.0-47.0) % MCV (80.0-100.0) fL MCH (25.0-34.0) pg MCHC (32.0-36.0) g/dL RDW Std Deviation (36.4-46.3) fL RDW Coeff of Dinesh (11.5-14.5) % Plt Count (130-400) K/uL MPV (9.4-12.4) fL Immature Gran % (Auto) % Neut % (Auto) % Lymph % (Auto) % Bryan % (Auto) % Eos % (Auto) % Baso % (Auto) % Neut # (Auto) (1.40-6.50) K/uL Lymph # (Auto) (1.20-3.40) K/uL Bryan # (Auto) (0.11-0.59) K/uL Eos # (Auto) (0.00-0.50) K/uL Baso # (Auto) (0.00-0.20) K/uL Immature Gran # (Auto) (0.01-0.20) K/uL D-Dimer (0-500) ug/L FEU Sodium (136-145) mmol/L Potassium (3.5-5.1) mmol/L Chloride (98-107) mmol/L Carbon Dioxide (21-32) mmol/L Anion Gap (3-11) BUN (6-23) mg/dl Creatinine (0.6-1.2) mg/dl Est Cr Clr Drug Dosing ml/min Est GFR ( Amer) ml/min Est GFR (Non-Af Amer) ml/min BUN/Creatinine Ratio (10-20) Glucose (70-99(Fasting)) mg/dl Calcium (8.6-10.3) mg/dl Magnesium (1.7-2.4) mg/dl Free T4 (0.61-1.60) ng/dl Free T3 3.14 (2.3-4.2) pg/ml Adenovirus (PCR) (NotDetected) B. pertussis DNA (PCR) (NotDetected) B.parapertussis DNA PCR (NotDetected) C. pneumoniae DNA (PCR) (NotDetected) Coronavirus OC43 (PCR) (NotDetected) Coronavirus HKU1 (PCR) (NotDetected) Coronavirus 229E (PCR) (NotDetected) SARS-CoV-2 (PCR) (NotDetected) Coronavirus NL63 (PCR) (NotDetected) Human Metapneumovir PCR (NotDetected) Influenza Type A (PCR) (NotDetected) Influenza Type B (PCR) (NotDetected) M. pneumoniae (PCR) (NotDetected) Parainfluenza 1 (PCR) (NotDetected) Parainfluenza 2 (PCR) (NotDetected) Parainfluenza 3 (PCR) (NotDetected) Parainfluenza 4 (PCR) (NotDetected) RSV (PCR) (NotDetected) Entero/Rhino (PCR) (NotDetected) Diagnostic Findings Chest X-Ray 09/02/23 08:52 XR chest 2V PA/lateral HISTORY: 78 years-old Female f/u pulm edema/chf acute shortness of breath COMPARISON: 09/01/2023 TECHNIQUE: PA and lateral views of the chest FINDINGS: Cardiac silhouette is enlarged. Cholecystectomy. Pulmonary vascular congestion. No pneumothorax. Small pleural effusions with mildly improved bibasilar consolidation, similar to prior. IMPRESSION: 1. Cardiomegaly with pulmonary vascular congestion. 2. Small pleural effusions with persistent bibasilar consolidation, mildly improved. ACT 112: Negative or not required by law. The above report was generated using voice recognition software. It may contain grammatical, syntax or spelling errors. Electronically signed by: Meet Huizar M.D. 09/02/2023 11:32 AM PG Care Time/CCT Total # of Minutes Spent Total Time Spent with Patient: Total time spent is greater than 50% in coordination of care (as documented) at patient's floor/unit and/or counseling patient: Coding Level of Care Code 17340 SUB INP/OBS CARE 3/50MIN Diagnoses Atrial fibrillation with rapid ventricular response I48.91 Heart failure with acute decompensation, type unknown I50.9 Gastroesophageal reflux disease K21.9 Hypoxia R09.02
[2023-09-02] MEDS: MAGNESIUM SULFATE / D5W 1 GM/100 ML BAG IV ONE (07:52)
[2023-09-02] MEDS: POTASSIUM CHLORIDE CRTAB 20 MEQ TABCR PO STA (07:54)
[2023-09-02] MEDS: FLUTICASONE FUROATE 200MCG 14 PUFFS/INHALER INH SCH (07:55)
[2023-09-02] MEDS: MULTIVITAMIN TAB PO SCH (07:56)
[2023-09-02] MEDS: UMECLIDINIUM BROMIDE 62.5MCG/BLISTER 7 PUFFS/INHALER INH SCH (07:56)
[2023-09-02] MEDS: LOSARTAN POTASSIUM 25 MG TAB PO SCH (07:57)
[2023-09-02] MEDS: ATORVASTATIN 40 MG TAB PO SCH (07:57)
[2023-09-02] MEDS: FUROSEMIDE 40 MG/4 ML VIAL IV SCH (08:00)
[2023-09-02] MEDS: APIXABAN 5 MG TABLET PO SCH (10:35)
--- NOTE | 2023-09-02 11:33 | XRay Report ---
XR chest 2V PA/lateral HISTORY: 78 years-old Female f/u pulm edema/chf acute shortness of breath COMPARISON: 09/01/2023 TECHNIQUE: PA and lateral views of the chest FINDINGS: Cardiac silhouette is enlarged. Cholecystectomy. Pulmonary vascular congestion. No pneumothorax. Smal l pleural effusions with mildly improved bibasilar consolidation, similar to prior. IMPRESSION: 1. Cardiomegaly with pulmonary vascular congestion. 2. Small pleural effusions with persistent bibasilar consolidation, mildly improved. ACT 112: Negative or not required by law. The above report was generated using voice recognition software. It may contain grammatical, syntax o r spelling errors. Electronically signed by: Meet Huizar M.D. 09/02/2023 11:32 AM
[2023-09-02] MEDS: METOPROLOL TARTRATE 25 MG TAB PO ONE (13:26)
[2023-09-02] MEDS: OPTIRAY 320 125ml IV ONE (14:43)
--- NOTE | 2023-09-02 15:22 | CT Scan Report ---
CHEST CTA for PULMONARY ARTERIES CT DOSE: 468.2 mGy.cm HISTORY: Shortness of breath. Atypical chest pain. TECHNIQUE: Multiaxial CT images of the chest were performed following the intravenous administration of contrast to evaluate the pulmonary arteries. 3D/Maximal intensity projection images were also obta ined. Sagittal and coronal reformations were also reviewed. A dose lowering technique was utilized a dhering to the principles of ALARA. COMPARISON STUDY: Chest CT 09/24/2015. FINDINGS: No acute fractures within the chest. No pneumothorax. The central airways are patent. Stabl e 5 mm nodule along the right minor fissure on image 111. Stable 8 mm groundglass nodule within the l eft lower lobe on image 85. Mild interlobular septal thickening suggestive of mild pulmonary edema. C onsolidation within the lungs posteriorly favor compressive atelectasis from the pleural effusions. A superimposed pneumonia would be difficult to exclude. There are small bilateral pleural effusions mo st pronounced on the right. Limited views the upper abdomen demonstrate a normal liver, spleen, and v isualized adrenal glands. Normal esophagus. The heart is mildly enlarged. No pericardial effusion. No mediastinal or hilar lymphadenopathy. Normal caliber thoracic aorta. Inadequate contrast within the aorta to assess for a dissection. There is a small weblike filling defect seen within the right lower lobar pulmonary artery best seen on image 109. This consistent with a chronic nonocclusive pulmonary embolus. No additional filling defects within the pulmonary arteries to suggest an acute pulmonary e mbolus. IMPRESSION: 1. A small weblike nonocclusive filling defect seen within the right lower lobar pulmonary artery con sistent with a chronic nonocclusive pulmonary embolus. 2. No evidence for an acute pulmonary embolus. 3. Cardiomegaly with mild interstitial pulmonary edema and small bilateral pleural effusions. 4. Consolidation within the lungs posteriorly favor compressive atelectasis from the pleural effusion s. A superimposed pneumonia would be difficult to exclude. 5. Stable pulmonary nodules as described above. ACT 112: Negative or not required by law. Electronically signed by: Naga Marquez M.D. 09/02/2023 3:21 PM
[2023-09-02] MEDS: PANTOprazole 40 MG in SYRINGE 0 ML IV ONE (15:52)
[2023-09-02] MEDS: POTASSIUM CHLORIDE CRTAB 20 MEQ TABCR PO SCH (16:51)
--- NOTE | 2023-09-02 17:13 | XCELERA ---
[id number]
--- NOTE | 2023-09-02 17:19 | Cardiology Consultation ---
Date of Consultation September 02, 2023 Assessment & Plan (1) Atrial fibrillation with rapid ventricular response: (2) Cardiomyopathy: (3) Mitral regurgitation: Plan 1. Atrial fibrillation: Persistent. Unclear duration. It is possible is been present for several weeks. She certainly developed some more noticeable symptoms a few days ago. While she does have a Fitbit, she does not check it regularly and I think there is an unknown duration of atrial fibrillation at this point. The etiology of her atrial fibrillation may be age related. She seems to have an element of valvular heart disease as well. Left atrium is dilated. She has a history of obstructive sleep apnea hopefully she will convert on her own. However, a rate control strategy has been adopted based on the unknown duration of the arrhythmia. Will continue titrating metoprolol. Digoxin could be added as well. Will continue systemic anticoagulation. Will consider cardioversion in 3-4 weeks. 2. Cardiomyopathy: She has reduced LV systolic function on her echocardiogram. Unclear this could be a rate related cardiomyopathy. She is not describe symptoms consistent with ischemic heart disease. However, that would be a consideration. Will run some standard tests for nonischemic cardiomyopathy. Will control her atrial rates. Will start her on some medications for reduced LV systolic function and diurese as necessary. Will plan re-evaluation once adequate rate control has been achieved. 3. Acute Congestive heart failure with reduced ejection fraction: It is very possible that her chronic coughing has been related to elevated pulmonary pressures. I would suspect that her recent exercise intolerance was related. She may require some mild diuresis. Will starting her on metoprolol which can be converted to metoprolol succinate. She is on losartan and this can be converted to Entresto. She would also be a good candidate for Jardiance based on her renal function and cardiomyopathy. Alternatively we can simply monitor her response to better rate control reassess LV function in a few weeks before becoming aggressive with medical therapy. 4. Mitral regurgitation: Mild in 2022. Certainly more significant on her echocardiogram yesterday. This is likely due to some annular dilation related to her cardiomyopathy. History of Present Illness Reason for Consultation: Atrial fibrillation Requesting Physician: Bobbi Attending Physician: Mani Gomez MD History of Present Illness The patient is a 78-year-old woman without a known history of cardiac disease who presented to her primary care physician's office with symptoms of coughing. Patient states that she has had a fairly chronic for some time. However recently she has been coughing so much that she has had difficulty sleeping at nighttime and has developed a soreness in her chest. She reports some mild dyspnea. This appeared to be more noticeable on Wednesday of this week when she attempted to do her usual exercise class. Normally she can complete the exercise class without limiting shortness of breath. She did not report dizziness or lightheadedness. She has had an occasional sense of fluttering in her chest. This has been present for many years and generally speaking has been fleeting in nature. She does wear watch which keeps track of her heart rate. She does not recall monitoring heart rate closely recently. At her office visit she was noted to be in atrial fibrillation with rapid ventricular response and she was sent to the hospital for evaluation. She was started on oral metoprolol and apixaban. It seems that in the past she has had a rash associated with diltiazem. At the time I interviewed the patient claimed he feeling well. She states that her cough has improved. Has not been very bothersome today. No shortness of breath at rest. No current chest pain. No current sense of palpitation. Allergies Allergy/AdvReac Type Severity Reaction Status Date / Time meloxicam Allergy Severe GI BLEED Verified 09/01/23 11:19 animal dander Allergy Intermediate Cough Verified 09/01/23 11:19 grass pollen Allergy Intermediate Cough Verified 09/01/23 11:19 mold Allergy Intermediate Cough Verified 09/01/23 11:19 diltiazem Allergy Mild Rash Verified 09/01/23 11:19 Home Medications Medication Instructions Recorded Confirmed Type biotin 5 mg capsule 5 mg PO HS 08/13/18 09/01/23 History calcium carbonate (Calcium 600) 600 mg PO BID 08/13/18 09/01/23 History inhalational spacing device #1 ea 08/13/18 09/01/23 History (Vortex Holding Chamber) multivitamin 1 tab PO QAM 08/13/18 09/01/23 History oxygen-air delivery systems ##1 08/13/18 09/01/23 History ammonium lactate 12 % lotion 1 applic topical DIRECTED PRN 05/29/20 09/01/23 History DRY SKIN IN WINTER sumatriptan succinate 50 mg tablet See Rx Instructions PO .COMPLEX 09/15/21 09/01/23 Rx #30 tabs albuterol sulfate 90 mcg/actuation 2 puff inhalation Q4H PRN 11/14/21 09/01/23 Rx aerosol inhaler (ProAir HFA) Shortness Of Breath #3 Inhalers atorvastatin 40 mg tablet 40 mg PO DAILY #90 tabs 01/20/23 09/01/23 Rx olmesartan 20 mg tablet 10 mg (1/2 x 20 mg) PO DAILY #45 05/05/23 09/01/23 Rx tabs tiotropium bromide 2.5 2 puff inhalation DAILY 90 days #3 06/18/23 09/01/23 Rx mcg/actuation mist for inhalation Inhalers (Spiriva Respimat) [id number]-[id number]-HCU-caffeine 30 1 cap PO DAILY PRN migraine 06/23/23 09/01/23 Rx mg-50 mg-325 mg-40 mg capsule headache #10 caps zolpidem 12.5 mg tablet,extended 12.5 mg PO HS PRN insomnia #10 tabs 08/09/23 09/01/23 Rx release,multiphase aspirin 81 mg tablet,delayed 81 mg PO HS 09/01/23 09/01/23 History release ciclesonide 160 mcg/actuation 2 puff inhalation BID 09/01/23 09/01/23 History aerosol inhaler (Alvesco) famotidine 40 mg tablet 40 mg PO BID 09/01/23 09/01/23 History mometasone 50 mcg/actuation nasal 2 spray intranasal BID #3 BTLS 09/02/23 Rx spray Patient History Medical History (Updated 09/02/23 @ 17:15 by Augustus Boogie MD) Ambulatory dysfunction Stroke-like symptoms Hallux rigidus of right foot Medial meniscus tear TIA (transient ischemic attack) 1975 due to OCPs Tubular adenoma of colon Surgical History History of laparoscopic appendectomy History of cataract surgery S/P excision of acoustic neuroma History of bunionectomy History of esophagogastroduodenoscopy (EGD) History of colonoscopy History of tubal ligation History of hysterectomy, supracervical H/O Mohs micrographic surgery for skin cancer H/O repair of rotator cuff History of cholecystectomy Family History Mother Breast cancer Father Prostate cancer Grandmother (Paternal) Family history of diabetes mellitus Other No family history of adverse response to anesthesia Denies family history of Ovarian cancer Myocardial infarction Colorectal cancer Social History Smoking Status: Former smoker Tobacco Type: Cigarettes Smoking End Date: 1971; Second Hand Exposure: No; Do You Dip or Chew Tobacco: No; Hx Alcohol Use: Yes Alcohol type: wine Hx Substance Use: No Preferred Language: Maldivian Communication Ability: Effective 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 No recent fevers or chills. Cough has been nonproductive. No lower extremity edema. Difficulty sleeping only related to coughing. No orthopnea. Physical Exam Physical Exam: She is alert and oriented x3. Mood affect appear normal. She answered all questions appropriately. HEENT: Sclerae are anicteric. Pupils are equal and reactive to light and accommodation. Extraocular movements were intact. Neuro: Cranial nerves intact Lungs: Lungs are clear to auscultation bilaterally. There are no rales wheezes or rhonchi. She has normal respiratory effort without use of accessory muscles. There is normal pulmonary excursion. Cardiac: The rhythm was irregular. S1 and S2 were normal. There are no murmurs on examination. The PMI was not markedly displaced on palpation. Extremities: Patient has bilateral radial pulses that are equal in intensity. There is no evidence cyanosis or clubbing. There was no evidence of significant peripheral edema bilaterally. Skin: There are no rashes noted on examination today. Results & Data Vital Signs (Past 12 Hours) Vital Signs Temp Pulse Pulse Resp BP Pulse Ox O2 Del Method 09/02/23 15:04 36.4 C L 105 H 18 112/79 91 Room Air 09/02/23 11:49 36.3 C L 116 H 18 113/83 91 Room Air 09/02/23 09:29 109 H 09/02/23 06:54 36.4 C L 94 H 17 116/83 91 Room Air Laboratory Results Abnormal Lab Results 09/01/23 09/01/23 09/02/23 12:45 17:37 06:39 WBC 7.78 RBC 4.73 Hgb 13.5 Hct 41.4 MCV 87.5 MCH 28.5 MCHC 32.6 RDW Std Deviation 43.4 RDW Coeff of Dinesh 13.6 Plt Count 205 MPV 11.7 Immature Gran % (Auto) 0.1 Neut % (Auto) 49.6 Lymph % (Auto) 36.4 Wolfe % (Auto) 9.8 Eos % (Auto) 3.2 Baso % (Auto) 0.9 Neut # (Auto) 3.86 Lymph # (Auto) 2.83 Wolfe # (Auto) 0.76 H Eos # (Auto) 0.25 Baso # (Auto) 0.07 Immature Gran # (Auto) 0.01 D-Dimer 600 H* Sodium 141 Potassium 3.4 L Chloride 106 Carbon Dioxide 28 Anion Gap 7 BUN 13 Creatinine 0.84 Est Cr Clr Drug Dosing 57.6 Est GFR ( Amer) 78.2 Est GFR (Non-Af Amer) 67.5 BUN/Creatinine Ratio 15.5 Glucose 109 H Calcium 8.9 Magnesium 1.9 Free T4 1.31 Free T3 3.14 Diagnostic Findings acute pulmonary embolus. There was some concern about an old chronic PE. She had some mild bilateral pleural effusions. Echocardiogram 09/02/2023: Moderately reduced LV systolic function with ejection fraction of 30 35%. Moderately dilated left atrium. Moderate to severe mitral regurgitation. ECG Additional Comments: EKG demonstrated atrial fibrillation with rapid ventricular response. PG Care Time/CCT Total # of Minutes Spent Total Time Spent with Patient: Total time spent is greater than 50% in coordination of care (as documented) at patient's floor/unit and/or counseling patient: Coding Level of Care Code 16828 INT INP/OBS CARE 3/75MIN Diagnoses Atrial fibrillation with rapid ventricular response I48.91 Cardiomyopathy I42.9 Mitral regurgitation I34.0
[2023-09-03 06:08] LABS: Hematocrit (blood only) 45.5 % (37.0-47.0); Mean Corpuscular Hemoglobin 28.7 pg (25.0-34.0); Mean Corpuscular Volume 87.2 fL (80.0-100.0); Mean Platelet Volume 12.3 fL (9.4-12.4); Platelet Count 229 K/uL (130-400); RDW Coefficient of Variation 13.6 % (11.5-14.5); RDW Standard Deviation 42.9 fL (36.4-46.3); Red Blood Count 5.22 M/uL (4.20-5.40); White Blood Count 8.01 K/ul (4.8-10.8)
[2023-09-03 06:28] LABS: Est GFR (African American) 64.2 ml/min; Potassium 3.5 mmol/L (3.5-5.1)
[2023-09-03 06:29] LABS: BUN Creatinine Ratio 20.2 (10-20); Calcium 9.3 mg/dl (8.6-10.3); Creatinine Clr Calc Pharmacy 45.3 ml/min; Est GFR (Non-African American) 55.4 ml/min; Magnesium 1.9 mg/dl (1.7-2.4)
[2023-09-03 06:49] LABS: Ferritin 67.4 ng/ml (8-388)
--- NOTE | 2023-09-03 07:56 | Hospitalist Progress Note ---
Date of Service September 03, 2023 Assessment & Plan (1) Atrial fibrillation with rapid ventricular response: Plan: New onset (Interestingly patient did note has had fluttering sensation for years, at least two, w/ HR on her fit bit to 120s at times. ?paroxysmal or more permanent unclear but did entertain discussion of holter monitor at that time but deferred. --Given longer standing/paroxysmal in nature and elevated ddimer will obtain CTA chest for completeness. Is on eliquis 5mg BID but may need to change dosing if +for PE. No evidence for DVT on exam or prior leg edema Possibly flutter waves on repeat EKG although telemetry reveals more of a fibrillation rhythm [id number] - 7, history of GI bleed while on meloxicam only, start anticoagulation with Eliquis 5mg PO BID Rate much better controlled after metoprolol 5mg IV x3 given in the ER, start metoprolol tartrate 25mg PO q6h with hold parameters TTE TSH normal, T4/t3 to am labs Consult cardiology for ongoing management 09/01 WBC 7.7k, hgb 13.5 Eliquis 5mg PO BID continued. Is also on ASA 81mg/pepcid 40mg PO BID. Monitor for need for PPI while on aspirin and eliquis. PPI IV x 1 for nausea today but ?related to afib Metoprolol 25mg PO q6h continued, Additional dose metoprolol 25 w/ afternoon 25mg dose for total 50mg and will monitor for need for further increase -Rates improved but 120s but still overloaded and SOB w/ exertion ECHO done this AM 09/01 but not yet read to eval for any RV dilation to be able to consider further holding off such TSH wnl on admit, T4/T3 to AM wnl CXR for for comparison, mild improvement. Continued monitoring. +cough/dry/nonproductive Increased lasix to 40mg IV BID for ongoing diuresis (wt 73.1kg--> 71.2kg) -K 3.4 on AM labs, 40meq ordered, will schedule 40meq BID w/ IV lasix BID to prevent hypokalemia w/ afib. -Mag 1.9, 1gm IV ordered to keep closer to 2 Appreciate recs/assistance from cardiology, not yet seen this afternoon per patient. 09/02 Echo w/ Moderately reduced LV systolic function with ejection fraction of 30- 35%. Moderately dilated left atrium. Moderate to severe mitral regurgitation. Rates remaining >100, 123bpm this morning. -->Metoprolol increased to 50mg Q6H for now for rate control, plan to transition to succinate for CHF/cardiomyopathy as below Messaged cardiology about consideration for digoxin Lasix 40mg IV BID on 09/01, Weight 71.2kg--> 70.2kg --> Will decrease to 20mg IV BID for today. CXR w/ improvement and allowing for BP w/ increase in metoprolol --> Continue 40meq PO KCL supplementation for now to get K closer to 4. Mag 1.9 Consideration for entresto for her CHF/cardiomyopathy as below ?in AM and CHF clinic consulted for outpt f/u, could consider adding Jardiance Continued telemetry monitoring (2) Acute heart failure with reduced ejection fraction (HFrEF, <= 40%): Plan: as above, wt on admit noted 73.1kg and was ~67kg around this time last year despite being active as outpatient EF on ECHO w/ NEW REDUCTION 30-35%, ?rate related given longer standing reported palpitations vs ischemic. Cards consulted/appreciate assistance Metoprolol increased for rate control. lasix continued but at lower dose given diuresis to allow for metoprolol increase and will continue to monitor weights/I&Os. Kcl supplementation for above as well CHF ref order placed for outpt f/u, consideration for entresto (inpatient vs outpatient pending above) as well as jardiance CPAP ordered HS, didn't use last night but daughter to bring in her home unit Continue to monitor on telemetry (3) Gastroesophageal reflux disease: Plan: Continue famotidine History of GI bleed on NSAIDs - monitor for symptoms on Eliquis, avoid NSAIDs Added protonix IVP x1 on 09/01 for nausea but as discussed w/ patient on aspirin from prior admit for "complex migraine" and no hx CVA and could likely be from longer standing issues w/ #1/#2 as above DISCONTINUED aspirin while on eliquis, no bleeding reported but should monitor for need to switch to PPI therapy (4) Hypoxia: Plan: in patient w/ asthma but new onset afib and heart failure as above Ddimer minimal elevation to 600 but given longer standing report of fluttering sensation over the past 2 years and paroxysmal in nature (may be more permanent now though), checked CTA for completeness (no evidence for DVT on exam). CTA obtained which noted findings c/w chronic nonocclusive PE, discussed w/ supervising provider and not acute will continue current dosing eliquis/monitor. -Does have stable pulm nodules, cardiomegaly w/ mild interstitial pulm edema and small b/l effusions. consolidation in lungs posteriorly favor compressive atelectasis from pleural effusions (superimposed PNA difficult to exclude however patient denied fevers/sputum production) Reports improvement in breathing with rate control and diuresis and remains on room air. Monitor for any issues, no pleurtic pain reported (5) Cardiomyopathy: Plan: Reduced LV systolic function on echo, ?rate related cardiomyopathy, ?ischemic however doesn't appear c/w however does have ALEXANDER Cards on consult as above, testing for nonischemic causes see note (6) Mitral regurgitation: Plan: worse on echo, rate/volume control as above and cards consulted (7) MIRELLA (obstructive sleep apnea): Plan: Hx of such, ordered CPAP HS but appears patient declined -- did not like the mask Inquired about compliance given afib and she does report she uses this every night. Asked daughter at bedside to bring in for her tonight 09/02 and can use home machine/continued compliance encouraged Plan continued inpatient stay, increased metoprolol. continue diuresis. awaiting cards return to see about consideration for adding digoxin but will continue current course for now updated daughter in room 09/02 Admission and Anticipated Discharge Date Admission Date: September 01, 2023 Supervising Physician Co-Signing Physician Notes The patient was not seen by me. The chart was reviewed. Case discussed with LENORA Stafford. Agree with assessment and plan Subjective Eval this morning, sitting up in bed, breathing improved. Eating lunch. Weights down. Discussed decreasing diuretics and increasing her metoprolol for better rate control and also consideration to add entresto in AM if rates improved to prevent hypotension issues. Also discussed CHF follow up. Discussed suspecting more longstanding issue and discussed aspirin use, which was from when she was in with "complex migraine" and no hx CVA and give eliquis use will discontinue further aspirin. Is faithful w/ CPAP but hasn't used int he hospital due to mask, daughter going to bring in. Discussed anticipating inpatient at least 24-48 hours but pending repeat exams/HR/response to diuresis. Eliambrosiois continued, will wayne check that as well as entresto. Daughter updated at bedside. Questions/concerns addressed at this time. Physical Exam Physical Exam: General: 78yo female sitting up chair having lunch, daughter in room, NAD Head atraumatic, normocephalic, mmm, trachea midline, +JVD Resp: even/unlabored but diminished in the bases R>L (improved), no wheezing/rales, on room air CV: irregularly irregular (rates 110s), +systolic murmur, S3, no pitting edema/calf tenderness GI : +BS, soft/NT MSK/Neuro: answering questions appropriately, no facial droop/slurred speech, following commands, not confused Psych: AOx3, cooperative with exam Results & Data Results & Data Vital Signs (Past 12 Hours) Vital Signs Temp Pulse Pulse Resp BP Pulse Ox O2 Del Method 09/03/23 02:25 37.1 C 112 H 16 119/83 94 Room Air 09/02/23 21:59 127 H 09/02/23 21:51 36.4 C L 112 H 18 128/90 94 Room Air Laboratory Results 09/03/23 Range/Units 05:23 WBC 8.01 (4.8-10.8) K/ul RBC 5.22 (4.20-5.40) M/uL Hgb 15.0 (12.0-16.0) g/dl Hct 45.5 (37.0-47.0) % MCV 87.2 (80.0-100.0) fL MCH 28.7 (25.0-34.0) pg MCHC 33.0 (32.0-36.0) g/dL RDW Std Deviation 42.9 (36.4-46.3) fL RDW Coeff of Dinesh 13.6 (11.5-14.5) % Plt Count 229 (130-400) K/uL MPV 12.3 (9.4-12.4) fL Sodium 141 (136-145) mmol/L Potassium 3.5 (3.5-5.1) mmol/L Chloride 104 (98-107) mmol/L Carbon Dioxide 29 (21-32) mmol/L Anion Gap 8 (3-11) BUN 20 (6-23) mg/dl Creatinine 0.99 (0.6-1.2) mg/dl Est Cr Clr Drug Dosing 45.3 ml/min Est GFR ( Amer) 64.2 ml/min Est GFR (Non-Af Amer) 55.4 ml/min BUN/Creatinine Ratio 20.2 H (10-20) Glucose 102 H (70-99(Fasting)) mg/dl Calcium 9.3 (8.6-10.3) mg/dl Magnesium 1.9 (1.7-2.4) mg/dl Iron 81 (35-150) mcg/dl Ferritin 67.4 (8-388) ng/ml Total Protein (PEP) Pending Albumin (PEP) Pending Oqqdw-4-Iqhaxxugq Pending Pisvz-6-Pjiadcknw Pending Vxrp-7-Jdxsywum Pending Sxak-2-Dztaresg Pending Gamma Globulins Pending Monoclonal Peak 3 Pending Ser Monoclonl Protein Pending Ser Monoclonal Prot 2 Pending PEP Interpretation Pending Angiotensin Convert Enz Pending Diagnostic Findings Chest X-Ray 09/03/23 07:00 XR chest 1V portable HISTORY: f/u pulm edema/chf COMPARISON: Chest 09/02/2023. FINDINGS: No pneumothorax. Trace bilateral pleural effusions and mild congestive change has improved. The heart remains mildly enlarged. Patchy left basilar dens ities persist. No acute fractures. IMPRESSION: 1. Interval improvement in the mild congestive change and trace bilateral pleural effusions. 2. Patchy left basilar densities persist. ACT 112: Negative or not required by law. Electronically signed by: Naga Marquez M.D. 09/03/2023 9:46 AM PG Care Time/CCT Total # of Minutes Spent Total Time Spent with Patient: Total time spent is greater than 50% in coordination of care (as documented) at patient's floor/unit and/or counseling patient: Coding Level of Care Code 40583 SUB INP/OBS CARE 3/50MIN Diagnoses Atrial fibrillation with rapid ventricular response I48.91 Acute heart failure with reduced ejection fraction (HFrEF, <= 40%) I50.21 Gastroesophageal reflux disease K21.9 Hypoxia R09.02 Cardiomyopathy I42.9 Mitral regurgitation I34.0 MIRELLA (obstructive sleep apnea) G47.33
[2023-09-03] MEDS: FUROSEMIDE 40 MG/4 ML VIAL IV SCH (08:42)
[2023-09-03] MEDS: MAGNESIUM SULFATE / D5W 1 GM/100 ML BAG IV ONE (08:46)
[2023-09-03] MEDS: METOPROLOL TARTRATE 50 MG TAB PO SCH (08:46)
--- NOTE | 2023-09-03 09:48 | XRay Report ---
XR chest 1V portable HISTORY: f/u pulm edema/chf COMPARISON: Chest 09/02/2023. FINDINGS: No pneumothorax. Trace bilateral pleural effusions and mild congestive change has improved. The heart remains mildly enlarged. Patchy left basilar densities persist. No acute fractures. IMPRESSION: 1. Interval improvement in the mild congestive change and trace bilateral pleural effusions. 2. Patchy left basilar densities persist. ACT 112: Negative or not required by law. Electronically signed by: Naga Marquez M.D. 09/03/2023 9:46 AM
--- NOTE | 2023-09-03 18:30 | Cardiology Progress Note ---
Date of Service September 03, 2023 Assessment & Plan (1) Atrial fibrillation with rapid ventricular response: (2) Cardiomyopathy: (3) Mitral regurgitation: Plan 1. Atrial fibrillation: Persistent. Unclear duration. She did note on her fit bit evaluation that around June her heart rate seemed to increase. This could be in the beginning atrial fibrillation and may explain cardiomyopathy given the chronicity. She is on escalating doses of metoprolol. I think would be reasonable add digoxin as well. She will continue on systemic anticoagulation. We could plan for cardioversion electively after a few weeks. 2. Cardiomyopathy: She has reduced LV systolic function on her echocardiogram. I think there is reasonable chance that this is tachycardia mediated. Will continue on metoprolol tartrate and convert to succinate at the time of discharge. We can add digoxin for improved rate control. I think would be reasonable to change her losartan to Entresto prior to discharge. 3. Acute Congestive heart failure with reduced ejection fraction: She seems well compensated currently. Lung examination benign today coughing actually improved. Diuresis yesterday. He would seem reasonable to continue her current regimen with conversion to a single daily dose of Lasix at the time of discharge. 4. Mitral regurgitation: Mild in 2022. Certainly more significant on her echocardiogram yesterday. This is likely due to some annular dilation related to her cardiomyopathy. Admission and Anticipated Discharge Date Admission Date: September 01, 2023 Subjective This afternoon the patient claimed he feeling well. She did ambulate around the [place] with minimal dyspnea. Her coughing seems to have resolved. She denies dizziness or lightheadedness. Only an occasional sense of palpitation. Review of Systems Review of Systems: Per HPI Physical Exam Physical Exam: She is alert and oriented x3. Mood affect appear normal. She answered all questions appropriately. HEENT: Sclerae are anicteric. Pupils are equal and reactive to light and accommodation. Extraocular movements were intact. Neuro: Cranial nerves intact Lungs: Lungs are clear to auscultation bilaterally. There are no rales wheezes or rhonchi. She has normal respiratory effort without use of accessory muscles. There is normal pulmonary excursion. Cardiac: The rhythm was irregular. S1 and S2 were normal. There are no murmurs on examination. The PMI was not markedly displaced on palpation. Extremities: Patient has bilateral radial pulses that are equal in intensity. There is no evidence cyanosis or clubbing. There was no evidence of significant peripheral edema bilaterally. Skin: There are no rashes noted on examination today. Results & Data Vital Signs (Past 12 Hours) Vital Signs Temp Pulse Pulse Resp BP Pulse Ox O2 Del Method 09/03/23 17:37 104 H 09/03/23 15:14 36.5 C 106 H 18 109/66 92 Room Air 09/03/23 11:29 36.8 C 115 H 18 103/68 90 Room Air 09/03/23 09:14 138 H 09/03/23 07:49 36.4 C L 123 H 18 118/85 94 Room Air Laboratory Results Abnormal Lab Results 09/03/23 05:23 WBC 8.01 RBC 5.22 Hgb 15.0 Hct 45.5 MCV 87.2 MCH 28.7 MCHC 33.0 RDW Std Deviation 42.9 RDW Coeff of Dinesh 13.6 Plt Count 229 MPV 12.3 Sodium 141 Potassium 3.5 Chloride 104 Carbon Dioxide 29 Anion Gap 8 BUN 20 Creatinine 0.99 Est Cr Clr Drug Dosing 45.3 Est GFR ( Amer) 64.2 Est GFR (Non-Af Amer) 55.4 BUN/Creatinine Ratio 20.2 H Glucose 102 H Calcium 9.3 Magnesium 1.9 Iron 81 Ferritin 67.4 PG Care Time/CCT Total # of Minutes Spent Total Time Spent with Patient: Total time spent is greater than 50% in coordination of care (as documented) at patient's floor/unit and/or counseling patient: Coding Level of Care Code 90621 SUB INP/OBS CARE 2/35MIN Diagnoses Atrial fibrillation with rapid ventricular response I48.91 Cardiomyopathy I42.9 Mitral regurgitation I34.0
[2023-09-04 07:00] LABS: Calcium 9.5 mg/dl (8.6-10.3); Creatinine Clr Calc Pharmacy 44.8 ml/min; Est GFR (African American) 63.4 ml/min; Est GFR (Non-African American) 54.7 ml/min; Potassium 3.9 mmol/L (3.5-5.1)
--- NOTE | 2023-09-04 07:18 | XRay Report ---
SINGLE VIEW CHEST CLINICAL HISTORY: Follow-up congestive failure FINDINGS: An AP, portable, upright chest radiograph is compared to study dated 09/03/2023 and correlat ed with chest CT dated 09/02/2023. The heart is enlarged. Pulmonary vascular congestion has resolved. Chronic interstitial thickening is similar to prior studies. There are small pleural effusions with d ependent atelectasis. No pneumothorax is seen. The skeletal structures are osteopenic. The bony thora x is grossly intact. IMPRESSION: 1. Cardiomegaly. Pulmonary vascular congestion has resolved. 2. There are small pleural effusions. These have likely decreased in size from previous. ACT 112: Negative or not required by law. Electronically signed by: Cornelio Martines M.D. 09/04/2023 7:17 AM
--- NOTE | 2023-09-04 08:15 | Hospitalist Progress Note ---
Date of Service September 04, 2023 Assessment & Plan (1) Atrial fibrillation with rapid ventricular response: Plan: New onset (Interestingly patient did note has had fluttering sensation for years, at least two, w/ HR on her fit bit to 120s at times. ?paroxysmal or more permanent unclear but did entertain discussion of holter monitor at that time but deferred. --Given longer standing/paroxysmal in nature and elevated ddimer will obtain CTA chest for completeness. Is on eliquis 5mg BID but may need to change dosing if +for PE. No evidence for DVT on exam or prior leg edema [id number] - 7, history of GI bleed while on meloxicam only, start anticoagulation with Eliquis 5mg PO BID Rate much better controlled after metoprolol 5mg IV x3 given in the ER Started metoprolol tartrate 25mg PO q6h TSH/T4/T3 wnl Echo w/ Moderately reduced LV systolic function with ejection fraction of 30- 35%. Moderately dilated left atrium. Moderate to severe mitral regurgitation. Cardiology consulted Continues on metoprolol 50mg q6h (increased on 09/02 for rate control) Discussed w/ Dr Monteiro this morning and rates improved but still elevated --> ordering DIGOXIN 0.125mcg IV x 1 now, can repeat in 4 hours and if improvement can dc on 125mcg PO dose Eliquis 5mg BID continued, aspirin discontinued given hx GI bleeding and on for prevention w/ hx complex migraine last year however could be related to current issue Cardioversion outpatient once on anticoagulation several weeks Lasix increased to 40mg IV BID 09/01 to assist w/ diuresis with improvement and decreased to 20mg IV BID 09/02 and continued through this morning. --Switching to lasix 40mg PO BID starting PM 09/03 given resolution in pulm congestion on CXR but continued small effusions Continue to monitor I&Os, daily weights Weight 73.1kg on admit--> 68.6kg (was 67kg last summer at this time and suspect closer to dry weight) Was going to consider starting entresto but can be done outpatient w/ CHF clinic given borderline BPs to prevent dropping her pressures (2) Acute heart failure with reduced ejection fraction (HFrEF, <= 40%): Plan: as above, wt on admit noted 73.1kg and was ~67kg around this time last year despite being active as outpatient Cards consulted as above given echo EF on ECHO w/ NEW REDUCTION 30-35%, ?rate related given longer standing reported palpitations vs ischemic. Cards consulted/appreciate assistance Continue increased metoprolol for rates as above, hopeful conversion to succinate Lasix as outlined, switching to PO BID this evening to monitor keeping even balance/no weight gain but may just need once daily pending continued response CPAP HS CHF clinic in f/u to discuss entresto, possible Jardiance and ongoing management. SPEP sent prior for alternative caruse IMPROVING (3) Gastroesophageal reflux disease: Plan: Continue famotidine History of GI bleed on NSAIDs - monitor for symptoms on Eliquis, avoid NSAIDs Added protonix IVP x1 on 09/01 for nausea but as discussed w/ patient on aspirin from prior admit for "complex migraine" and no hx CVA and could likely be from longer standing issues w/ #1/#2 as above DISCONTINUED aspirin while on Eliquis, no bleeding reported but should monitor for need to switch to PPI therapy. Reports nausea but NO abdominal pain. ZOfran prn. monitor for improvement w/ rate control (4) Hypoxia: Plan: in patient w/ asthma but new onset afib and heart failure as above Ddimer minimal elevation to 600 but given longer standing report of fluttering sensation over the past 2 years and paroxysmal in nature (may be more permanent now though), checked CTA for completeness (no evidence for DVT on exam). CTA obtained which noted findings c/w chronic nonocclusive PE, discussed w/ supervising provider and not acute will continue current dosing eliquis/monitor. -Does have stable pulm nodules, cardiomegaly w/ mild interstitial pulm edema and small b/l effusions. consolidation in lungs posteriorly favor compressive atelectasis from pleural effusions (superimposed PNA difficult to exclude however patient denied fevers/sputum production) CXR W improvement as above Reports improvement in breathing with rate control and diuresis and remains on room air, improved to 97% today (5) Cardiomyopathy: Plan: Reduced LV systolic function on echo, ?rate related cardiomyopathy, ?ischemic however doesn't appear c/w however does have whittington which is improving w/ diuresis/rate control Cards on consult as above, testing for nonischemic causes (see note) (6) Mitral regurgitation: Plan: worse on echo, rate/volume control as above and cards consulted (7) MIRELLA (obstructive sleep apnea): Plan: Hx of such, ordered CPAP HS but appears patient declined -- did not like the mask Inquired about compliance given afib and she does report she uses this every night. Asked daughter at bedside to bring in for her 09/02 and can use home machine/continued compliance encouraged Plan continued inpatient stay on increased metoprolol, digoxin as outlined decreasing diuretics and monitoring volume status in AM, CHF clinic in f/u updated daughter in room 09/02, can update as needed Dispo: hopeful dc 09/04 Admission and Anticipated Discharge Date Admission Date: September 01, 2023 Supervising Physician Co-Signing Physician Notes The patient was not seen by me. The chart was reviewed. Case discussed with LENORA Stafford. Agree with assessment and plan Subjective Evaluated this morning around lunch, sitting up in the chair, NAD, reporting feeling better. Seen by cardiology this morning and discussed Digoxin, will order IV x1 now and additional 4 hrs if still elevated but if improved will plan to send on. Eliquis continued, aspirin stopped. Having intermittent nausea at times but no abdominal pain or bleeding reported. Moving her bowels. Discussed possible dc in AM with close CHF clinic follow up but would hold off entresto at this time to prevent hypotension. Physical Exam Physical Exam: General: 78yo female sitting up chair having lunch, NAD, intermittent nausea at times Head atraumatic, normocephalic, mmm, trachea midline, +JVD Resp: even/unlabored but diminished in the bases (IMPROVED), no wheezing/rales, on room air 97% CV: irregularly irregular (rates 90-110s), +systolic murmur, S3, no pitting edema/calf tenderness GI : +BS, soft/NT MSK/Neuro: answering questions appropriately, no facial droop/slurred speech, following commands, not confused Psych: AOx3, cooperative with exam Results & Data Results & Data Vital Signs (Past 12 Hours) Vital Signs Temp Pulse Pulse Resp BP Pulse Ox O2 Del Method 09/04/23 07:32 36.4 C L 104 H 18 100/68 94 Room Air 09/04/23 02:53 36.3 C L 104 H 16 115/82 95 Room Air 09/04/23 01:58 16 93 Room Air 09/04/23 01:45 109 H 111/81 09/03/23 23:21 36.6 C 107 H 16 106/76 90 Room Air 09/03/23 21:58 112 H Laboratory Results 09/04/23 Range/Units 06:16 Sodium 141 (136-145) mmol/L Potassium 3.9 (3.5-5.1) mmol/L Chloride 104 (98-107) mmol/L Carbon Dioxide 31 (21-32) mmol/L Anion Gap 6 (3-11) BUN 21 (6-23) mg/dl Creatinine 1.00 (0.6-1.2) mg/dl Est Cr Clr Drug Dosing 44.8 ml/min Est GFR ( Amer) 63.4 ml/min Est GFR (Non-Af Amer) 54.7 ml/min BUN/Creatinine Ratio 21.0 H (10-20) Glucose 111 H (70-99(Fasting)) mg/dl Calcium 9.5 (8.6-10.3) mg/dl Magnesium 2.0 (1.7-2.4) mg/dl Diagnostic Findings Chest X-Ray 09/03/23 07:00 XR chest 1V portable HISTORY: f/u pulm edema/chf COMPARISON: Chest 09/02/2023. FINDINGS: No pneumothorax. Trace bilateral pleural effusions and mild congestive change has improved. The heart remains mildly enlarged. Patchy left basilar densities persist. No acute fractures. IMPRESSION: 1. Interval improvement in the mild congestive change and trace bilateral pleural effusions. 2. Patchy left basilar densities persist. ACT 112: Negative or not required by law. Electronically signed by: Naga Marquez M.D. 09/03/2023 9:46 AM Chest X-Ray 09/04/23 07:00 SINGLE VIEW CHEST CLINICAL HISTORY: Follow-up congestive failure FINDINGS: An AP, portable, upright chest radiograph is compared to study dated 09/03/2023 and correlated with chest CT dated 09/02/2023. The heart is enlarged. Pulmonary vascular congestion has resolved. Chronic interstitial thickening is similar to prior studies. There are small pleural effusions with dependent atelectasis. No pneumothorax is seen. The skeletal structures are osteopenic. The bony thorax is grossly intact. IMPRESSION: 1. Cardiomegaly. Pulmonary vascular congestion has resolved. 2. There are small pleural effusions. These have likely decreased in size from previous. ACT 112: Negative or not required by law. Electronically signed by: Cornelio Martines M.D. 09/04/2023 7:17 AM PG Care Time/CCT Total # of Minutes Spent Total Time Spent with Patient: Total time spent is greater than 50% in coordination of care (as documented) at patient's floor/unit and/or counseling patient: Coding Level of Care Code 87450 SUB INP/OBS CARE 3/50MIN Diagnoses Atrial fibrillation with rapid ventricular response I48.91 Acute heart failure with reduced ejection fraction (HFrEF, <= 40%) I50.21 Gastroesophageal reflux disease K21.9 Hypoxia R09.02 Cardiomyopathy I42.9 Mitral regurgitation I34.0 MIRELLA (obstructive sleep apnea) G47.33
--- NOTE | 2023-09-04 11:04 | Cardiology Progress Note ---
Date of Service September 04, 2023 Assessment & Plan (1) Atrial fibrillation with rapid ventricular response: Plan: -Uncertain duration. -Continue metoprolol to tartrate 50 mg QID. Would convert to metoprolol succinate at time of discharge. -Would start digoxin 0.25 mg IV, repeat x 1 in 4 hours if necessary. -Continue Eliquis 5 mg twice daily. -Could consider electrical cardioversion in several weeks if necessary. -She should follow-up with Dr. Boogie in the outpatient setting. (2) Cardiomyopathy: Plan: -Likely tachycardic induced. -Continue losartan and Lasix. -Metoprolol as above. -Will be reassessed as an outpatient once rate is well-controlled. (3) Mitral regurgitation: Plan: -Moderate to severe on current echocardiogram. -Will likely improve with recovery of left ventricular systolic function. -Follow-up as outpatient. Admission and Anticipated Discharge Date Admission Date: September 01, 2023 Subjective The patient was seen ambulating in the hallway. She denies chest pain, dyspnea, and palpitations. She is anxious for hospital discharge. Physical Exam Physical Exam: In general send well-developed well-nourished white female in no acute distress. HEENT exam is negative. Neck is supple with full carotid upstrokes. There are no carotid bruits. Jugular venous pressure is flat at 90 degrees. No thyromegaly. Cardiovascular exam reveals an irregular regular rhythm with distant heart sounds. No obvious murmurs. Lungs are clear without rales, rhonchi, or wheezes. Abdomen is soft and nontender without bruits. Extremities reveal intact radial pulse bilaterally. There is no peripheral edema. Results & Data Vital Signs (Past 12 Hours) Vital Signs Temp Pulse Pulse Resp BP Pulse Ox O2 Del Method 09/04/23 08:37 100 H 09/04/23 07:32 36.4 C L 104 H 18 100/68 94 Room Air 09/04/23 02:53 36.3 C L 104 H 16 115/82 95 Room Air 09/04/23 01:58 16 93 Room Air 09/04/23 01:45 109 H 111/81 09/03/23 23:21 36.6 C 107 H 16 106/76 90 Room Air Diagnostic Findings satellite project site monitor notes atrial fibrillation with a ventricular response of approximately 100-110 bpm. PG Care Time/CCT Total # of Minutes Spent Total Time Spent with Patient: Total time spent is greater than 50% in coordination of care (as documented) at patient's floor/unit and/or counseling patient: Coding Level of Care Code 43648 SUB INP/OBS CARE 350MIN Diagnoses Atrial fibrillation with rapid ventricular response I48.91 Cardiomyopathy I42.9 Mitral regurgitation I34.0
[2023-09-04] MEDS: DIGOXIN 125 MCG in SYRINGE 9.5 ML IV ONE (12:08)
[2023-09-04] MEDS: POTASSIUM CHLORIDE CRTAB 20 MEQ TABCR PO SCH (12:10)
[2023-09-04] MEDS: ONDANSETRON INJ 2 MG/ML 2 ML VIAL IV PRN (14:06)
[2023-09-04] MEDS: DIGOXIN 125 MCG in SYRINGE 9.5 ML IV STA (17:23)
[2023-09-04] MEDS: FUROSEMIDE 40 MG TAB PO SCH (17:24)
[2023-09-05 06:59] LABS: Hematocrit (blood only) 45.5 % (37.0-47.0); Hemoglobin 14.6 g/dl (12.0-16.0); Mean Corpuscular Hemoglobin 28.2 pg (25.0-34.0); Mean Corpuscular Hgb Conc 32.1 g/dL (32.0-36.0); Mean Platelet Volume 12.6 fL (9.4-12.4); Platelet Count 239 K/uL (130-400); RDW Coefficient of Variation 13.4 % (11.5-14.5); RDW Standard Deviation 43.4 fL (36.4-46.3); Red Blood Count 5.17 M/uL (4.20-5.40); White Blood Count 7.54 K/ul (4.8-10.8)
[2023-09-05 07:30] LABS: BUN Creatinine Ratio 22.8 (10-20); Calcium 9.1 mg/dl (8.6-10.3); Creatinine Clr Calc Pharmacy 44.4 ml/min; Est GFR (African American) 62.6 ml/min; Magnesium 1.8 mg/dl (1.7-2.4); Potassium 3.9 mmol/L (3.5-5.1)
--- NOTE | 2023-09-05 07:57 | Hospitalist Progress Note ---
Date of Service September 05, 2023 Assessment & Plan (1) Atrial fibrillation with rapid ventricular response: Plan: New onset (Interestingly patient did note has had fluttering sensation for years, at least two, w/ HR on her fit bit to 120s at times. ?paroxysmal or more permanent unclear but did entertain discussion of holter monitor at that time but deferred. --Given longer standing/paroxysmal in nature and elevated ddimer will obtain CTA chest for completeness. Is on eliquis 5mg BID but may need to change dosing if +for PE. No evidence for DVT on exam or prior leg edema [id number] - 7, history of GI bleed while on meloxicam only, start anticoagulation with Eliquis 5mg PO BID Rate much better controlled after metoprolol 5mg IV x3 given in the ER Started metoprolol tartrate 25mg PO q6h TSH/T4/T3 wnl Echo w/ Moderately reduced LV systolic function with ejection fraction of 30- 35%. Moderately dilated left atrium. Moderate to severe mitral regurgitation. Cardiology consulted Continues on metoprolol 50mg q6h (increased on 09/02 for rate control) Discussed w/ Dr Monteiro this morning and rates improved but still elevated --> ordering DIGOXIN 0.125mcg IV x 1 now, can repeat in 4 hours and if improvement can dc on 125mcg PO dose Eliquis 5mg BID continued, aspirin discontinued given hx GI bleeding and on for prevention w/ hx complex migraine last year however could be related to current issue Cardioversion outpatient once on anticoagulation several weeks Lasix increased to 40mg IV BID 09/01 to assist w/ diuresis with improvement and decreased to 20mg IV BID 09/02 and continued through this morning. --Switching to lasix 40mg PO BID starting PM 09/03 given resolution in pulm congestion on CXR but continued small effusions Continue to monitor I&Os, daily weights Weight 73.1kg on admit--> 68.6kg (was 67kg last summer at this time and suspect closer to dry weight) Was going to consider starting entresto but can be done outpatient w/ CHF clinic given borderline BPs to prevent dropping her pressures 09/04 - Metoprolol continued, added digoxin 0.125 IV x 2 doses per discussion w/ Dr Monteiro. Appears rates improved and 80-100 overnight. Will plan to continue 0.125mcg PO daily at discharge. - BP 100/69, 95% on RA. - Mag 1.8, additional 1gm to keep closer to 2. K3.9 and remains on supplementation w/ lasix 40mg PO BID. ?decreasing dose/prn for weight gain now that closer to baseline - Potential dc today with close CHF clinic follow up pending eval. Benefit from switching to succinate and adding entresto which can added as able but not wanting to add all at once to prevent hypotension/MICHAEL/complication - (2) Acute heart failure with reduced ejection fraction (HFrEF, <= 40%): Plan: as above, wt on admit noted 73.1kg and was ~67kg around this time last year despite being active as outpatient Cards consulted as above given echo EF on ECHO w/ NEW REDUCTION 30-35%, ?rate related given longer standing reported palpitations vs ischemic. Cards consulted/appreciate assistance Continue increased metoprolol for rates as above, hopeful conversion to succinate Lasix as outlined, switching to PO BID this evening to monitor keeping even balance/no weight gain but may just need once daily pending continued response CPAP HS CHF clinic in f/u to discuss entresto, possible Jardiance and ongoing management. SPEP sent prior for alternative caruse IMPROVING (3) Gastroesophageal reflux disease: Plan: Continue famotidine History of GI bleed on NSAIDs - monitor for symptoms on Eliquis, avoid NSAIDs Added protonix IVP x1 on 09/01 for nausea but as discussed w/ patient on aspirin from prior admit for "complex migraine" and no hx CVA and could likely be from longer standing issues w/ #1/#2 as above DISCONTINUED aspirin while on Eliquis, no bleeding reported but should monitor for need to switch to PPI therapy. Reports nausea but NO abdominal pain. ZOfran prn. monitor for improvement w/ rate control (4) Hypoxia: Plan: in patient w/ asthma but new onset afib and heart failure as above Ddimer minimal elevation to 600 but given longer standing report of fluttering sensation over the past 2 years and paroxysmal in nature (may be more permanent now though), checked CTA for completeness (no evidence for DVT on exam). CTA obtained which noted findings c/w chronic nonocclusive PE, discussed w/ supervising provider and not acute will continue current dosing eliquis/monitor. -Does have stable pulm nodules, cardiomegaly w/ mild interstitial pulm edema and small b/l effusions. consolidation in lungs posteriorly favor compressive atelectasis from pleural effusions (superimposed PNA difficult to exclude however patient denied fevers/sputum production) CXR W improvement as above Reports improvement in breathing with rate control and diuresis and remains on room air, improved to 97% today (5) Cardiomyopathy: Plan: Reduced LV systolic function on echo, ?rate related cardiomyopathy, ?ischemic however doesn't appear c/w however does have whittington which is improving w/ diuresis/rate control Cards on consult as above, testing for nonischemic causes (see note) (6) Mitral regurgitation: Plan: worse on echo, rate/volume control as above and cards consulted (7) MIRELLA (obstructive sleep apnea): Plan: Hx of such, ordered CPAP HS but appears patient declined -- did not like the mask Inquired about compliance given afib and she does report she uses this every night. Asked daughter at bedside to bring in for her 09/02 and can use home machine/continued compliance encouraged Plan continued inpatient stay on increased metoprolol, digoxin as outlined decreasing diuretics and monitoring volume status in AM, CHF clinic in f/u updated daughter in room 09/02, can update as needed Dispo: hopeful dc 09/04 Admission and Anticipated Discharge Date Admission Date: September 01, 2023 Results & Data Results & Data Vital Signs (Past 12 Hours) Vital Signs Temp Pulse Pulse Resp BP BP Pulse Ox 09/05/23 06:55 36.5 C 86 18 100/69 95 09/05/23 02:21 36.4 C L 09/05/23 02:09 91 H 16 103/74 91 09/04/23 22:53 36.3 C L 97 H 16 115/76 93 09/04/23 22:00 100 H O2 Del Method 09/05/23 06:55 Room Air 09/05/23 02:21 09/05/23 02:09 Room Air 09/04/23 22:53 Room Air 09/04/23 22:00 PG Care Time/CCT Total # of Minutes Spent Total Time Spent with Patient: Total time spent is greater than 50% in coordination of care (as documented) at patient's floor/unit and/or counseling patient: Coding Diagnoses Atrial fibrillation with rapid ventricular response I48.91 Acute heart failure with reduced ejection fraction (HFrEF, <= 40%) I50.21 Gastroesophageal reflux disease K21.9 Hypoxia R09.02 Cardiomyopathy I42.9 Mitral regurgitation I34.0 MIRELLA (obstructive sleep apnea) G47.33
[2023-09-05] MEDS: MAGNESIUM SULFATE / D5W 1 GM/100 ML BAG IV ONE (08:07)
--- NOTE | 2023-09-05 08:42 | XRay Report ---
XR chest 2V PA/lateral HISTORY: f/u effusions/chf COMPARISON: Chest 09/03/2023. FINDINGS: No pneumothorax. No pleural effusions. A few left basilar linear densities persist. This is similar to the prior study. No evidence for pulmonary edema. The heart remains enlarged. Prior lisy cystectomy. IMPRESSION: 1. A few left basilar linear densities. This favors atelectasis or a resolving pneumonia. 2. Stable mild cardiomegaly. ACT 112: Negative or not required by law. Electronically signed by: Naga Marquez M.D. 09/05/2023 8:41 AM
--- NOTE | 2023-09-05 10:01 | Discharge Summary ---
Date of Service September 05, 2023 Admission HPI Per Admitting Provider Emily Kenny is a 78 year old female who presents to the ER with shortness of breath, chest pressure, cough and palpitations. Ongoing symptoms since Wednesday progressively getting worse. Denies chest pain just mild constant pressure. Cough is non-productive. No leg swelling. No history of atrial arrhythmias but strong family history of this. No fever or chills. No history of heart failure. Admission Exam Per Admitting Provider Constitutional: WD/WN, vitals as above Eyes: PERRL, conjunctivae normal, anicteric sclerae ENMT: external ear and nose normal, oropharynx normal Respiratory: normal respiratory effort, lungs clear to auscultation Cardiovascular: Rate/Rhythm: + tachycardic and + irregularly irregular Heart Sounds: no murmur Extremities: normal capillary refill; no calf tenderness and no pedal edema Gastrointestinal (Abdomen): normal bowel sounds, soft, nontender, no hepatosplenomegaly Musculoskeletal: no cyanosis or clubbing, extremities motor strength 5/5 Skin: no rashes, warm and dry Neurologic: moves all extremities and awake; not confused Psychiatric: A+Ox3, euthymic affect Genitourinary: no CVA tenderness Principal Diagnosis Afib with RVR, congestive heart failure with reduced ejection fraction, cardiomyopathy Discharge Exam General: 78yo female standing up in room upon entry, HRs 95 w/ standing, NAD and appears much improved/ready to go home Head atraumatic, normocephalic, mmm, trachea midline Resp: even/unlabored, improvement in air entry bilaterally, slight diminished in the bases but no w/c/r, on room ait 95%, no cough/tachypnea or sputum production CV: irregularly irregular (rates 90-110s), +systolic murmur, S3, no pitting edema/calf tenderness GI : +BS, soft/NT MSK/Neuro: answering questions appropriately, no facial droop/slurred speech, following commands, not confused Psych: AOx3, cooperative with exam Discharge Data Allergies Allergy/AdvReac Type Severity Reaction Status Date / Time meloxicam Allergy Severe GI BLEED Verified 09/01/23 11:19 animal dander Allergy Intermediate Cough Verified 09/01/23 11:19 grass pollen Allergy Intermediate Cough Verified 09/01/23 11:19 mold Allergy Intermediate Cough Verified 09/01/23 11:19 diltiazem Allergy Mild Rash Verified 09/01/23 11:19 Consultations 09/01/23 14:16 ED Decision to Admit Stat 09/01/23 17:12 Consult Cardiology Routine 09/02/23 17:31 [facility] CHF Program Referral Routine Ordered Studies Chest X-Ray 09/01/23 12:28 SINGLE VIEW CHEST CLINICAL HISTORY: Atypical chest pain FINDINGS: An AP, portable, upright chest radiograph is compared to study dated 01/21/2019 and correlated with chest CT dated 09/24/2015. The heart is enlarged noting atherosclerotic calcification of the thoracic aorta. There is evidence of congestive failure and pulmonary edema. There are small pleural effusions with dependent consolidation. No pneumothorax is seen. The skeletal structures are osteopenic. The bony thorax is grossly intact. IMPRESSION: 1. Cardiomegaly with evidence of congestive failure and pulmonary edema. Radiographic follow-up to resolution is recommended. 2. Small pleural effusions with dependent consolidation. ACT 112: Negative or not required by law. Electronically signed by: Cornelio Martines M.D. 09/01/2023 1:30 PM Chest X-Ray 09/02/23 08:52 XR chest 2V PA/lateral HISTORY: 78 years-old Female f/u pulm edema/chf acute shortness of breath COMPARISON: 09/01/2023 TECHNIQUE: PA and lateral views of the chest FINDINGS: Cardiac silhouette is enlarged. Cholecystectomy. Pulmonary vascular congestion. No pneumothorax. Small pleural effusions with mildly improved bibasilar consolidation, similar to prior. IMPRESSION: 1. Cardiomegaly with pulmonary vascular congestion. 2. Small pleural effusions with persistent bibasilar consolidation, mildly improved. ACT 112: Negative or not required by law. The above report was generated using voice recognition software. It may contain grammatical, syntax or spelling errors. Electronically signed by: Meet Huizar M.D. 09/02/2023 11:32 AM Chest CTA 09/02/23 14:01 CHEST CTA for PULMONARY ARTERIES CT DOSE: 468.2 mGy.cm HISTORY: Shortness of breath. Atypical chest pain. TECHNIQUE: Multiaxial CT images of the chest were performed following the intravenous administration of contrast to evaluate the pulmonary arteries. 3D/Maximal intensity projection images were also obtained. Sagittal and coronal reformations were also reviewed. A dose lowering technique was utilized adhering to the principles of ALARA. COMPARISON STUDY: Chest CT 09/24/2015. FINDINGS: No acute fractures within the chest. No pneumothorax. The central airways are patent. Stable 5 mm nodule along the right minor fissure on image 111. Stable 8 mm groundglass nodule within the left lower lobe on image 85. Mild interlobular septal thickening suggestive of mild pulmonary edema. Consolidation within the lungs posteriorly favor compressive atelectasis from the pleural effusions. A superimposed pneumonia would be difficult to exclude. There are sma ll bilateral pleural effusions most pronounced on the right. Limited views the upper abdomen demonstrate a normal liver, spleen, and visualized adrenal glands. Normal esophagus. The heart is mildly enlarged. No pericardial effusion. No mediastinal or hilar lymphadenopathy. Normal caliber thoracic aorta. Inadequate contrast within the aorta to assess for a dissection. There is a small weblike filling defect seen within the right lower lobar pulmonary artery best seen on image 109. This consistent with a chronic nonocclusive pulmonary embolus. No additional filling defects within the pulmonary arteries to suggest an acute pulmonary embolus. IMPRESSION: 1. A small weblike nonocclusive filling defect seen within the right lower lobar pulmonary artery consistent with a chronic nonocclusive pulmonary embolus. 2. No evidence for an acute pulmonary embolus. 3. Cardiomegaly with mild interstitial pulmonary edema and small bilateral pleural effusions. 4. Consolidation within the lungs posteriorly favor compressive atelectasis from the pleural effusions. A superimposed pneumonia would be difficult to exclude. 5. Stable pulmonary nodules as described above. ACT 112: Negative or not required by law. Electronically signed by: Naga Marquez M.D. 09/02/2023 3:21 PM Chest X-Ray 09/03/23 07:00 XR chest 1V portable HISTORY: f/u pulm edema/chf COMPARISON: Chest 09/02/2023. FINDINGS: No pneumothorax. Trace bilateral pleural effusions and mild congestive change has improved. The heart remains mildly enlarged. Patchy left basilar densities persist. No acute fractures. IMPRESSION: 1. Interval improvement in the mild congestive change and trace bilateral pleural effusions. 2. Patchy left basilar densities persist. ACT 112: Negative or not required by law. Electronically signed by: Naga Marquez M.D. 09/03/2023 9:46 AM Chest X-Ray 09/04/23 07:00 SINGLE VIEW CHEST CLINICAL HISTORY: Follow-up congestive failure FINDINGS: An AP, portable, upright chest radiograph is compared to study dated 09/03/2023 and correlated with chest CT dated 09/02/2023. The heart is enlarged. Pulmonary vascular congestion has resolved. Chronic interstitial thickening is similar to prior studies. There are small pleural effusions with dependent atelectasis. No pneumothorax is seen. The skeletal structures are osteopenic. The bony thorax is grossly intact. IMPRESSION: 1. Cardiomegaly. Pulmonary vascular congestion has resolved. 2. There are small pleural effusions. These have likely decreased in size from previous. ACT 112: Negative or not required by law. Electronically signed by: Cornelio Martines M.D. 09/04/2023 7:17 AM Chest X-Ray 09/05/23 07:00 XR chest 2V PA/lateral HISTORY: f/u effusions/chf COMPARISON: Chest 09/03/2023. FINDINGS: No pneumothorax. No pleural effusions. A few left basilar linear densities persist. This is similar to the prior study. No evidence for pulmonary edema. The heart remains enlarged. Prior cholecystectomy. IMPRESSION: 1. A few left basilar linear densities. This favors atelectasis or a resolving pneumonia. 2. Stable mild cardiomegaly. ACT 112: Negative or not required by law. Electronically signed by: Naga Marquez M.D. 09/05/2023 8:41 AM ECHOCARDIOGRAM 09/02/2023 LV ventricular systolic is moderately reduced (EF 30-35%). The left atrium is moderately dilated. There is moderate to severe mitral regurgitation. RVSP is elevated at 30-40mmHg. The inferior vena cava is mildly dilated. Hospital Course (1) Atrial fibrillation with rapid ventricular response: 78yo female presented with shortness of breath, chest pressure, cough and palpitations and found to be in afib/RVR, concerns for flutter. No prior personal hx noted (however did report sensation of fluttering in her chest for at least past 2 years w/ elevated fit bit readings) but strong family hx of such. [id number] score 7, hx GI bleeding while on meloxicam only. Interestingly was in last summer w/ "complex migraine"/TIA workup and was not set up with holter at discharge but suspect has been going on for some time. Admitted to PCU w/ telemetry monitoring, cardiology consulted and ECHO obtained TSH/T4/T3 within normal limited Placed on metoprolol 25mg Q6h, increased to 50mg q6h w/ improvement but resting HR still >100 and discussed w/ cards and added digoxin. IV x 2, placed on 0.125mcg PO daily and to have lab check outpt next week with them/PCP but not to check after acute start per Dr Monteiro. At ar, 100mg PO BID and can transition to succinate in f/u CHF clinic Eliquis started 5mg PO BID, continued at discharge and cardioversion can be planned with cards outpatient. ECHO obtained, Moderately reduced LV systolic function with ejection fraction of 30-35%. Moderately dilated left atrium. Moderate to severe mitral regurgitation. Lasix IV, increased to 40mg IV BID to assist w/ diuresis (weights last summer ~67kg, admitted w/ weight 73kg) with significant improvement on CXR and no further cough, no sputum production and no fever/WBC elevation and switched to 40mg PO lasix BID and almost back to prior weight. Was discussed w/ cards and decision to DECREASE to ONCE dialy 40mg PO lasix at ar (with KCl supplementation) to maintain volume status/weights and to continue AHA/low salt diet and monitoring of her weights at home. CHF clinic referral placed for ongoing management and switch to metoprolol succinate as outpatient and adding medications such as ENtresto/jardiance but were not done inpatient due to borderline BPs and not wanting to cause hypotension w/ imrpovement in rate control and diuresis. Did DISCONTINUE Aspirin given on for migraine in past and suspect episode brought on by afib likely given above reports and hx of bleeding. No CVA on prior imaging. Patient wanting to go home and not continue monitoring overnight/further adjustments and appeared much improved and discussed w/ cardiology who was ok with discharge. HR with standing in room 80-90s and much improved overall trend At discharge: - Metoprolol 50mg q6 sent but discussed w/ patient and supervising provider to take 100mg BID and transition to succinate in f/u - Digoxin 0.125mcg PO daily (would have level check this upcoming week w/ PCP/cards) - Eliquis 5mg PO BID (provided coupon), Aspirin 81mg discontinued - Lasix 40mg PO daily, 20meq Kcl - Continue ARB (hx asthma, likely unable to use HECTOR) until able to switch to entresto - Monitoring of weights/low salt diet - CHF clinic referral placed - Repeat labs Wednesday to ensure renal function/mag remaining stable. Would consider adding PO mag pending repeat level (given 1gm prior to dc) given her hx migraines as well as afib to keep stores replete (2) Acute heart failure with reduced ejection fraction (HFrEF, <= 40%): as above wt on admit noted 73.1kg and was ~67kg around this time last year despite being active as outpatient ?tachycardia induced, other. protein electrophoresis/HECTOR level send/pending at discharge per cardiology. Did not appear ischemic in nature however cannot r/u Continued CPAP HS, is compliant HRs improved w/ metoprolol as above- continued at discharge Diuretics w/ improvement in CXR and exam Continued ARB with plans for Weights improved, down to 69.1kg at discharge and to continue to monitor weights at home/notify provider. Continue AHA/low salt diet. Metoprolol as above at discharge w plans to switch to metoprolol succinate outpatient LASIX 40mg PO DAILY AT DC, 20meq KCl Planning for entresto start in follow up, possibly jardiance pending continued management w/ cards/CHF clininc (3) Gastroesophageal reflux disease: Continued famotidine BID given hx GI bleed on NSAIDs and started eliquis No bleeding reported but intermittent nausea but NO ABDOMINAL PAIN STOPPED aspirin as above, continued eliquis BID. TO monitor for any issues/need for switch to PPI but avoided at present given lower mag and stable reflux. Did get zofran x 1 w/ improvement while inpatient (4) Hypoxia: in patient w/ asthma but new onset afib and heart failure as above Ddimer minimal elevation to 600 but given longer standing report of fluttering sensation over the past 2 years and paroxysmal in nature (may be more permanent now though), checked CTA for completeness (no evidence for DVT on exam). CTA noted findings c/w chronic nonocclusive PE, discussed w/ supervising provider and not acute will continue current dosing eliquis as above. DENIED PAIN w/ INSPIRATION as well/pleuritic pain -Does have stable pulm nodules, cardiomegaly w/ mild interstitial pulm edema and small b/l effusions. consolidation in lungs posteriorly favor compressive atelectasis from pleural effusions (superimposed PNA difficult to exclude however patient denied fevers/sputum production) Repeat CXR prior to dc w/ resolving atelectasis vs resolving pna, stable mild cardiomegaly. Of note, no WBC elevation, sputum production or further cough w/ treatment as above and do not suspect any underlying PNA. ENcouageed continued deep breathing at dc 95% on RA prior to discharge w/ improvement in symptoms as above (5) Cardiomyopathy: Reduced LV systolic function on echo, ?rate related cardiomyopathy, ?ischemic however doesn't appear c/w however does have [place] which is improving w/ diuresis/rate control Cards on consult as above, testing for [facility]ischemic causes [facility] (6) Mitral regurgitation: worse on echo, rate/volume control as above and cards consulted (7) MIRELLA (obstructive sleep apnea): CPAP HS Plan discharged home, CHF/cardiology follow up and repeat labs for electrolytes on Wednesday. Total Time Total Time Spent Total Time Spent (In Minutes): 50 Discharge Plan Discharge Items Patient Disposition: Home - Self-Care Reason For Visit: A. FLUTTER RVR Discharge Diagnosis: Atrial Fibrillation/Flutter with rapid ventricular response Congestive Heart Failure with reduced ejection fraction/cardiomyopathy Goals: You have been hospitalized for an acute medical problem. During your stay at [facility], we have made an effort to correct the problem that brought you to the hospital while keeping you as comfortable as possible. Medications were used to bring your condition under control and your discharge instructions will include directions for any medications you should take after leaving the hospital. Please make sure you see your Primary Care Provider as part of your follow up plan. Activity: As commented below Non-emergency contact: Primary Care Provider and Cyber Instructor Call non-emergency contact if: you have any medication questions, your symptoms worsen, your pain is concerning for you and you have a fever Follow-up/Referrals: Augustus Boogie MD [Physician] - Ainsley Graves MD [Primary Care Provider] - Traci Mosher PA-C [Physician Termite Exterminator Helper] - Diet: Heart Healthy and Low Sodium (2gm) Fluids: 2000ml (8 cups) Ambulatory Orders: Basic Metabolic Panel (Routine) Timeframe: [id number] Location: Determined by Patient Ordered By: Huma Martines Magnesium (Routine) Timeframe: [id number] Location: Determined by Patient Ordered By: Huma Martines Addtl Attending Provider Instructions: You have been hospitalized for shortness of breath, chest pressure, cough and palpitations and found to be in an irregular rhythm called atrial fibrillation as discussed. We performed ultrasound of the heart to look at pumping function and valves which showed a REDUCTION in your pumping function of the heart which has likely been due to your heart rhythm with elevated rates but further evaluation is required. We used medications to bring your heart rate down and get better control and also diuretics to bring off some of the fluid that was related with significant improvement in chest imaging. You did not have evidence for acute clot but noted a small chronic thrombus which could be from the longstanding nature and decision to not increase Eliquis given chronic nature to prevent bleeding given your history of bleeding. Your baby aspirin has been STOPPED, and you can continue Eliquis 5mg by mouth twice daily. Please monitor for any bleeding in urine or stool but your blood counts have remained stable. You will likely benefit from possible cardioversion to get back into a normal rhythm but need to be on Eliquis for at least 4 weeks for safety as discussed prior to this. For rate control we are sending you on metoprolol 50mg which is to be taken every 6 hours (BUT DISCUSSED YOU CAN TAKE THIS 100mg TWICE DAILY) and digoxin which is once daily 0.125mcg. CHF clinic referral has been placed and they will work on getting this transitioned to metoprolol succinate (longer lasting version of this medication) for heart failure and rate control but is not being done prior to discharge as discussed with cardiology. We have also continued you on a diuretic called Lasix to help maintain volume status and prevent weight gain/edema/worsening breathing. This can cause potassium levels to be low which can make your rates faster and we have sent oral replacement to keep these levels normal. I have put in for repeat labs on Wednesday to ensure your potassium and renal function are staying stable on diuretics. They will work on adding additional medications to help strengthen the pumping function of the heart like Entresto and Jardiance but these can be added slowly to monitor for any issues/symptoms/reactions. Please continue a low salt/heart healthy diet and monitor your weights daily at home. If you have any weight gain 3lb in a 24hour period of time or 5 lb in a week please contact your medical provider. Please follow up with primary care in the next week as well as cardiology/CHF clinic for ongoing management of heart failure. Please return to the ER with any increased shortness of breath, chest pain, bleeding, lightheaded/dizziness, or for any other symptoms concerning for you. It has been a pleasure being a part of the medical team providing for you while you have been in the hospital. Addtl Psychological Operations Officer Provider Instructions: Call 911 and go to the Emergency Room if: * You have tightness or pain in your chest that does not go away with rest or Nitroglycerin * You are very short of breath even with rest Call your doctor if any of the following symptoms or problems start or get worse: * Shortness of breath or difficulty breathing * Wake up at night short of breath * Chest pain * Cough * Swelling of your hands, fee, or legs * More fatigued or tired with your normal activity * Palpitations - sudden fast heart beats WEIGHT * Weigh yourself every morning after using the bathroom. * Use the same scale. * Wear the same amount of clothing. * Write your weight down on your chart. * Call your doctor if you gain more than 2-3 pounds in 1-2 days. MEDICATIONS * Use this discharge instruction sheet for instructions. * Take your medications at the time your doctor ordered. * Do not skip a dose of your medicines. * If you miss a dose of medicine, take as soon as possible, but DO NOT DOUBLE A DOSE. * Read your medicine information when you get home. * Know all of the side effects of your medicine. * Call your doctor's office if you have any side effects. * Be sure all of your doctors know what medicine and herbs you take (including cold, flu, and herbal medicine). * Pain Medicine: If you do not get relief from your pain, please call your doctor for help. Take the following with you to your follow-up doctor appointments: * Weight Chart * Medication List * List of questions Do not drink excessive alcohol, beer or wine. Pending Studies at Discharge: Yes Studies:: Protein Electrophoresis, Angiotensin converting enzyme Stand-Alone Forms: My IVFXPERT, Smoking Cessation Medications and DC Order Prescriptions: New Eliquis 5 mg Tablet 5 mg PO BID Qty: 60 3RF metoprolol tartrate 50 mg Tablet 50 mg PO Q6H 30 Days Qty: 120 0RF digoxin [Digitek] 125 mcg (0.125 mg) Tablet 0.125 mg PO DAILY@1600 Qty: 30 0RF furosemide 40 mg tablet 40 mg PO DAILY Qty: 30 0RF potassium chloride 20 mEq tablet extended release 20 meq PO DAILY Qty: 30 0RF Continued atorvastatin 40 mg tablet 40 mg PO DAILY Qty: 90 3RF olmesartan 20 mg tablet 10 mg PO DAILY Qty: 45 3RF Spiriva Respimat 2.5 mcg/actuation mist 2 puff inhalation DAILY 90 Days Qty: 3 3RF [id number]-[id number] [id number] mg capsule 1 cap PO DAILY PRN (Reason: migraine headache) Qty: 10 0RF zolpidem 12.5 mg tablet,ext release multiphase 12.5 mg PO HS PRN (Reason: insomnia) Qty: 10 0RF mometasone 50 mcg/actuation spray,non-aerosol 2 spray INTNAS BID Qty: 3 3RF biotin 5 mg capsule 5 mg PO HS calcium carbonate [Calcium 600] 600 mg calcium (1,500 mg) tablet 600 mg PO BID multivitamin tablet 1 tab PO QAM albuterol sulfate [ProAir HFA] 90 mcg/actuation HFA aerosol inhaler 2 puff INH Q4H PRN (Reason: Shortness Of Breath) Qty: 3 3RF sumatriptan succinate 50 mg tablet See Rx Instructions PO .COMPLEX Qty: 30 3RF Rx Instructions: take 1 tab at onset of headache; if no relief may repeat 1 tab after at least 2 hrs; max = 4 tabs/24 hr PO ammonium lactate 12 % lotion 1 applic TOPICAL DIRECTED PRN (Reason: DRY SKIN IN WINTER) famotidine 40 mg tablet 40 mg PO BID Rx Instructions: TAKE 1 TABLET TWICE A DAY Alvesco 160 mcg/actuation HFA aerosol inhaler 2 puff inhalation BID Rx Instructions: 2 PUFFS BID Discontinued aspirin 81 mg Tablet,Delayed Release (Dr/Ec) 81 mg PO HS No Action (DME) oxygen-air delivery systems device See Dose Instructions .ROUTE .MEDSUPPLY Qty: 1 Rx Instructions: 7 cm of water Qhs. (DME) Vortex Holding Chamber spacer See Dose Instructions .ROUTE .MEDSUPPLY Qty: 1 Rx Instructions: Use with inhaler. Discharge Orders: Discharge Order- CHF (Routine); Ordered 09/05/23 Ordered By: Huma Martines Admission Data Admit Date/Time: 09/01/23 15:03 Attending Provider: Mani Gomez Admit Provider: Jacob Banks Primary Care Provider: Ainsley Graves Other Providers: Jacob Banks; Augustus Boogie; Traci Mosher Other Interventions: Discharge Summary Assessment (RN) Last Done: 09/05/23 10:23 Supervising Physician Co-Signing Physician Notes The patient was not seen by me. The chart was reviewed. Case discussed with LENORA Stafford. Agree with assessment and plan Coding Level of Care Code 46359 INP/OBS DISCH >30 MIN Diagnoses Atrial fibrillation with rapid ventricular response I48.91 Acute heart failure with reduced ejection fraction (HFrEF, <= 40%) I50.21 Gastroesophageal reflux disease K21.9 Hypoxia R09.02 Cardiomyopathy I42.9 Mitral regurgitation I34.0 MIRELLA (obstructive sleep apnea) G47.33
[2023-09-05] MEDS ORDERED: DIGOXIN 0.125 MG TAB PO SCH (16:00)
[2023-09-07 07:42] LABS: Albumin 3.9 g/dL (3.8-4.8); Alpha 1 Globulin 0.3 g/dL (0.2-0.3); Alpha 2 Globulin 0.7 g/dL (0.5-0.9); Angiotensin Converting Enzyme 54 U/L (9-67); Beta-1-Globulin 0.4 g/dL (0.4-0.6); Beta-2-Globulin 0.4 g/dL (0.2-0.5); Gamma Globulin 0.7 g/dL (0.8-1.7); Monoclonal Protein Band 1 DNR g/dL (NONE DETECTED); Monoclonal Protein Band 2 DNR g/dL (NONE DETECTED); Monoclonal Protein Band 3 DNR g/dL (NONE DETECTED); Total Protein 6.3 g/dL (6.1-8.1)
== END 2023-09-05 10:58 | disposition home or self-care (01) | DRG 308 ==
LOC: ED 12:15 → SUATTDRO 15:03 → 2S 15:03